=== PATIENT | male | born 1975 | race Caucasian/White ===

== ENCOUNTER 2023-12-22 14:49 | Outpatient (OUT) | payer OTHER, SELFPAY ==
[2023-12-22 15:39] LABS: Basophils Percent Auto 0.5 % (0.2-2.0); Eosinophils Absolute Auto 0.1 10^3/uL (0.0-0.7); Hematocrit 48.1 % (42.0-54.0); Immature Granulocytes Abs Auto 0.01 10^3/uL (0.00-0.03); Immature Granulocytes Pct Auto 0.2 % (0.0-0.5); Lymphocytes Absolute Auto 2.1 10^3/uL (1.2-3.8); Lymphocytes Percent Auto 32.9 % (20.5-60.0); Mean Corpuscular HGB Conc 33.3 g/dL (29.9-35.2); Mean Corpuscular Hemoglobin 28.9 pg (25.9-34.0); Mean Corpuscular Volume 86.8 fL (80.0-94.0); Mean Platelet Volume 10.9 fL (9.5-13.5); Monocytes Absolute Auto 0.6 10^3/uL (0.3-0.8); Monocytes Percent Auto 9.2 % (1.7-12.0); Neutrophils Absolute Auto 3.6 10^3/uL (1.4-6.5); Neutrophils Percent Auto 55.2 % (43.0-75.0); Platelet Count 222 10^3/uL (150-450); Red Blood Count 5.54 10^6/uL (4.70-6.10); Red Cell Distribution Width 11.6 % (11.0-15.0); White Blood Count 6.4 10^3/uL (4.0-11.0)
[2023-12-22 15:40] LABS: Estimated Average Glucose 111 mg/dL; Glycohemoglobin A1C 5.5 % (4.5-6.2)
[2023-12-22 15:50] LABS: Alanine Aminotransferase 80 U/L (16-63); Albumin Globulin Ratio 0.9; Albumin Level 3.7 g/dL (3.4-5.0); Alkaline Phosphatase 90 U/L (46-116); Anion Gap 9.6; Aspartate Amino Transferase 35 U/L (15-37); BUN Creatinine Ratio 9.2; Bilirubin Direct 0.1 mg/dL (0.0-0.2); Bilirubin Total 0.6 mg/dL (0.2-1.0); Calcium 8.8 mg/dL (8.5-10.1); Carbon Dioxide 33.5 mmol/L (21.0-32.0); Chloride 101 mmol/L (98-107); Cholesterol 170 mg/dL (<=200); Estimated GFR (African America >60 (>=60); Estimated GFR (Non-African Ame >60 (>=60); Globulin 4.1 g/dL; Glucose 98 mg/dL (74-106); HDL Cholesterol 42 mg/dL (40-60); Potassium 3.1 mmol/L (3.5-5.1); Sodium 141 mmol/L (136-145); Total Protein 7.8 g/dL (6.4-8.2); Triglycerides 191 mg/dL (<=150); VLDL CHOLESTEROL 38.2 mg/dL
[2023-12-22 16:14] LABS: Prostate Specific Antigen Scrn 0.72 ng/mL (<=4.00)
== END 2023-12-22 14:50 | disposition home or self-care (01) ==
LOC: LAB 14:55
PROVIDERS: PCP Family Medicine; Visit Provider Family Medicine
DX: Z00.00 Encounter for general adult medical examination without abnormal findings (principal); E55.9 Vitamin D deficiency, unspecified
CPT/HCPCS: 36415; 80048; 80061; 80076; 82306; 83036; 85025; G0103

== ENCOUNTER 2024-07-21 07:39 | Outpatient (OUT) | payer OTHER, SELFPAY ==
--- OUTSIDE RECORDS SUMMARY | 2024-07-21 07:48 | XMS_ITS | CCD ---
Author Organization [facility] Care Team Providers Care Clip Loading Machine Feeder Name Role Phone PHYSICIAN, DEFAULT Unavailable Unavailable PHYSICIAN, DEFAULT Unavailable Unavailable Binta Mata Unavailable Nadeen Coburn Unavailable AXEL, DR CHAY Gtz Attending Unavailable AXEL, DR CHAY Gtz Consulting Unavailable AXEL, DR CHAY Gtz Primary Care Unavailable AXEL, DR CHAY Gtz Admitting Unavailable CHAY REYNA Attending Unavailable MD Chay Reyna Primary Care Provider [phone] DO Gucci Rashid Emergency Provider [phone] DO Gucci Rashid Attending Provider Gucci Rashid Attending Unavailable Chay Reyna Primary Care Unavailable Gucci Rashid Admitting Unavailable Gucci Rashid Attending Unavailable Chay Reyna Primary Care Unavailable Gucci Rashid Admitting Unavailable MINDA KELSEY Attending Unavailable CHAY REYNA Primary Care Unavailabl e Medications Current Medications Medication Drug Class(es) Dates Sig (Normalized) Sig (Original) cholecalciferol 0.05 mg oral capsule (2 sources) Vitamin D Start: 4 take 1 capsule by mouth once daily Cholecalciferol (Vitamin D3) Active 50 MCG PO Daily June 03, 2024 12:00am FreeTextSi capsule Orally Once a day; Note: Source Status: Taking; Provider: Esperanza Judd ( ) hydroCHLOROthiazide 25 mg oral tablet (5 sources) Thiazide Diuretic Start: 4 take 1 tablet by mouth once daily in the morning Hydrochlorothiazide Active 25 MG PO Daily June 03, 2024 12:00am FreeTextSi tablet in the morning Orally Once a day; Note: Source Status: Taking; Provider: Esperanza Judd ( ) take 1 tablet by livan th every twenty-four hours hydroCHLOROthiazide 25 MG 1 tablet in e morning Orally Once a day Active hydroCHLOROthiaz khris Active ibuprofen 200 mg oral tablet (1 source) Nonsteroidal Anti-inflammatory Drug take 2 tablets by mouth three times daily at mealtime as needed Ibuprofen 200 MG 2 tablet with food or milk as needed Orally Three times a day Active 24 hr metoprolol succinate 50 mg extended release oral tablet (2 sources) beta-Adrenergic Spencer Start: take 50 mg by mouth once daily Metoprolol Succinate Active 50 MG PO Daily June 03, 2024 12:00am Multi For Him - (1 source) Multi For Him - as directed Orally Active Multivitamin (Daily Multi-Vitamin) tablet (2 sources) Start: take 1 tablet by mouth once daily Multivitamin (Daily Multi-Vitamin) tablet Active 1 TAB PO Daily June 03, 2024 12:00am oseltamivir 75 mg oral capsule (1 source) Neuraminidase Inhibitor Start: take 1 capsule by mouth every twelve hours Tamiflu 75 MG 1 capsule Orally Twice a day for 5 day(s) Dec, Active Vitamin D 50 MCG (1999 UT) (1 source) take 1 capsule by mouth once daily Vitamin D 50 MCG (2000 UT) 1 capsule Orally Once a day Active Completed/Discontinued Medications Medication Drug Class(es) Dates Sig (Normalized) Sig (Original) naproxen sodium 550 mg oral tablet (2 sources) Nonsteroidal Anti-inflammatory Drug Start: 07-09-2021 take 1 tablet by mouth every twelve hours at mealtime as needed Naproxen Sodium 550 MG 1 tablet with food or milk as needed Orally every 12 hrs for 10 day(s) Jun, Not-Taking Problems Active Problems Problem Classification Problem Date Documented Date Episodic/Chronic Cardiac dysrhythmias (2 sources) Ventricular premature depolarization; Translations: [Ventricular premature depolarization] Onset: 06-21-2024 Chronic Cardiac dysrhythmias (5 sources) Palpitations; Translations: [Palpitations] Onset: 06-03-2024 06-03-2024 Episodic Fever of unknown origin (1 source) Fever, unspecified Episodic Other circulatory disease (2 sources) Elevated blood-pressure reading, without diagnosis of hypertension; Translations: [Elevated blood-pressure reading, without diagnosis of hypertension] Onset: 06-21-2024 Episodic Other ear and sense organ disorders (1 source) Impacted cerumen, left ear Episodic Other nutritional; endocrine; and metabolic disorders (2 sources) Body mass index (BMI) 28.0-28.9, adult; Translations: [Body mass index (BMI) 28.0-28.9, adult] Onset: 06-21-2024 Episodic Other screening for suspected conditions (not mental disorders or infectious disease) (3 sources) Encounter for screening for malignant neoplasm of prostate; Translations: [Abnormal electrocardiogram [ECG] [EKG]] Onset: 12-09-2022 Episodic Other upper respiratory infections (5 sources) Streptococcal sore throat; Translations: [Strep pharyngitis] Episodic Otitis media and related conditions (3 sources) Otitis media; Translations: [Unspecified otitis media] Episodic Residual codes; unclassified (2 sources) Other specified health status; Translations: [Other specified health status] Onset: 06-21-2024 Episodic Past or Other Problems Problem Classification Problem Date Documented Date Episodic/Chronic Immunizations and screening for infectious disease (1 source) Contact with and (suspected) exposure to other viral communicable diseases Onset: 12-12-2021 Resolved: 12-12-2021 Episodic Influenza (1 source) Influenza due to other identified influenza virus with other respiratory manifestations Onset: 12-12-2021 Resolved: 12-12-2021 Episodic Other connective tissue disease (1 source) Achilles tendinitis, left leg; Translations: [Achilles tendinitis of left lower extremity M76.62] Onset: 07-09-2021 Resolved: 07-09-2021 Episodic Results Test Name Value Interpretation Reference Range Facility Activated partial thrombopla stin time (aPTT) in platelet poor plasma by coagulation aOrdered By: Gucci Rashid on 06-03-2024 aPTT Coag (PPP) [Time] 30.6 s 25.1-36.5 [facility] Comment on above: A hematocrit value g reater than 55% may lead to inaccurate results in coagulation testing. Patients having hematocrit values >55% require a special collection tube for coagulation studies. Please contact the laboratory at [phone] for redraw instructions. Alanine aminotransferase [En zymatic activity/volume] in Serum or PlasmaOrdered By: Gucci Rashid on 06-03-2024 ALT [Catalytic activity/Vol] 54 U/L High 7-52 [facility] Comment on above: Performed By: #### M G, PT, HS TROP, PTT, CMP, TSH3, CK, CBC, T4F #### [facility] [address] Albumin [Mass/volume] in Ser um or Plasma by Bromocresol green (BCG) dye binding methoOrdered By: Gucci Rashid on 06-03-2024 Albumin BCG dye [Mass/Vol] 4.4 g/dL 3.5-5.7 [facility] Alkaline phosphatase [Enzyma tic activity/volume] in Serum or PlasmaOrdered By: Gucci Rashid on 06-03-2024 ALP [Catalytic activity/Vol] 74 U/L Normal 34-104 [facility] Comment on above: Performed By: #### M G, PT, HS TROP, PTT, CMP, TSH3, CK, CBC, T4F #### [facility] [address] Aspartate aminotransferase [ Enzymatic activity/volume] in Serum or PlasmaOrdered By: Gucci Rashid on 06-03-2024 AST [Catalytic activity/Vol] 32 U/L Normal 13-39 [facility] Comment on above: Performed By: #### M G, PT, HS TROP, PTT, CMP, TSH3, CK, CBC, T4F #### [facility] [address] Automated basophil %Ordered By: Gucci Rashid on 06-03-2024 Basophils/100 WBC (Bld) 0.5 % Normal . [facility] Comment on above: Performed By: #### M G, PT, HS TROP, PTT, CMP, TSH3, CK, CBC, T4F #### [facility] [address] Automated basophil countOrde red By: Gucci Rashid on 06-03-2024 Basophils (Bld) [#/Vol] 0.0 10*3/uL Normal 0.0-0.2 [facility] Comment on above: Result Comment: PERF ORMED BY: [place] [address] PATHOLOGIST STEAM CLEANER NEELA BRAGG M.D. Performed By: #### M G, PT, HS TROP, PTT, CMP, TSH3, CK, CBC, T4F #### [address] Automated blood monocyte cou ntOrdered By: Gucci Rashid on 06-03-2024 Monocytes (Bld) [#/Vol] 0.7 10*3/uL Normal 0.0-0.8 [facility] Comment on above: Performed By: #### M G, PT, HS TROP, PTT, CMP, TSH3, CK, CBC, T4F #### [address] Automated eosinophil %Ordere d By: Gucci Rashid on 06-03-2024 Eosinophils/100 WBC (Bld) 0.8 % Normal . [facility] Comment on above: Performed By: #### M G, PT, HS TROP, PTT, CMP, TSH3, CK, CBC, T4F #### [address] Automated eosinophil countOr dered By: Gucci Rashid on 06-03-2024 Eosinophils (Bld) [#/Vol] 0.1 10*3/uL Normal 0.0-0.45 [facility] Comment on above: Performed By: #### M G, PT, HS TROP, PTT, CMP, TSH3, CK, CBC, T4F #### [address] Automated monocyte %Ordered By: Gucci Rashid on 06-03-2024 Monocytes/100 WBC (Bld) 10.0 % Normal . [facility] Comment on above: Performed By: #### M G, PT, HS TROP, PTT, CMP, TSH3, CK, CBC, T4F #### [address] Automated neutrophil %Ordere d By: Gucci Rashid on 06-03-2024 Neutrophils/100 WBC (Bld) 67.1 % Normal . [facility] Comment on above: Performed By: #### M G, PT, HS TROP, PTT, CMP, TSH3, CK, CBC, T4F #### [facility] [address] BNP ser/plasOrdered By: Baron Rashid on 06-03-2024 Natriuretic peptide B (Bld) [Mass/Vol] 11.0 pg/mL Normal 5-100 [facility] Comment on above: Result Comment: PERF ORMED BY: [place] [address] PATHOLOGIST STEAM CLEANER NEELA BRAGG M.D. Performed By: #### B MD PHYSICIAN DERMATOLOGIST #### [address] Bilirubin Test strip Ql (U)O rdered By: Gucci Rashid on 06-03-2024 Bilirubin Ql (U) Negative Negative [facility] Bilirubin.total [Mass/volume ] in Serum or PlasmaOrdered By: Gucci Rashid on 06-03-2024 Bilirubin [Mass/Vol] 0.6 mg/dL Normal 0.3-1.0 [facility] Comment on above: Performed By: #### M G, PT, HS TROP, PTT, CMP, TSH3, CK, CBC, T4F #### [facility] [address] [place] [address] Calcium [Mass/volume] in Ser um or PlasmaOrdered By: Gucci Rashid on 06-03-2024 Calcium [Mass/Vol] 9.6 mg/dL Normal 8.6-10.3 [facility] Comment on above: Performed By: #### M G, PT, HS TROP, PTT, CMP, TSH3, CK, CBC, T4F #### [facility] [address] Carbon dioxide, total [Moles /volume] in Serum or PlasmaOrdered By: Gucci Rashid on 06-03-2024 CO2 [Moles/Vol] 30.4 mmol/L Normal 21.0-31.0 [facility] Comment on above: Performed By: #### M G, PT, HS TROP, PTT, CMP, TSH3, CK, CBC, T4F #### [address] Chloride [Moles/volume] in S odessa or PlasmaOrdered By: Gucci Rashid on 06-03-2024 Chloride [Moles/Vol] 101 mmol/L Normal 98-107 [facility] Comment on above: Performed By: #### M G, PT, HS TROP, PTT, CMP, TSH3, CK, CBC, T4F #### [address] Color of Urine by AutoOrdere d By: Gucci Rashid on 06-03-2024 Color (U) Light-yellow Normal Yellow [facility] Comment on above: Order Comment: Name Collection Type:: Voided Performed By: #### U A #### [address] Complete Blood Count Auto Di ffon 06-03-2024 Mean Corpuscular HGB Conc 34.6 g/dL Normal 32.5-35.6 [facility] Comment on above: Performed By: #### M G, PT, HS TROP, PTT, CMP, TSH3, CK, CBC, T4F #### [address] Monocytes/100 WBC (Bld) 16.10 % Normal 0.00-20.00 [facility] Comment on above: Performed By: #### M G, PT, HS TROP, PTT, CMP, TSH3, CK, CBC, T4F #### [address] NRBC% 0.1 /100{WBC} Normal 0-0.5 [facility] Comment on above: Performed By: #### M G, PT, HS TROP, PTT, CMP, TSH3, CK, CBC, T4F #### [address] Comprehensive Metabolic Pane giovani 06-03-2024 Albumin [Mass/Vol] 4.4 g/dL Normal 3.5-5.7 [facility] Comment on above: Performed By: #### M G, PT, HS TROP, PTT, CMP, TSH3, CK, CBC, T4F #### [facility] [address] Creatinine Clr Calc Pharmacy 88.42 Normal [facility] Comment on above: Performed By: #### M G, PT, HS TROP, PTT, CMP, TSH3, CK, CBC, T4F #### [facility] [address] [place] [address] [place] GFR/1.73 sq M.predicted MDRD (S/P/Bld) [Vol rate/Area] mL/min/{1.73_m2} Normal [facility] Comment on above: Performed By: #### M G, PT, HS TROP, PTT, CMP, TSH3, CK, CBC, T4F #### [address] Creatine kinase [Enzymatic a ctivity/volume] in Serum or PlasmaOrdered By: Gucci Rashid on 06-03-2024 CK [Catalytic activity/Vol] 116 U/L Normal 30-223 [facility] Comment on above: Performed By: #### M G, PT, HS TROP, PTT, CMP, TSH3, CK, CBC, T4F #### [facility] [address] [place] [address] [place] Creatinine [Mass/volume] in Serum or PlasmaOrdered By: Gucci Rashid on 06-03-2024 Creatinine [Mass/Vol] 1.10 mg/dL Normal 0.70-1.30 [facility] Comment on above: Performed By: #### M G, PT, HS TROP, PTT, CMP, TSH3, CK, CBC, T4F #### [place] [id number] [facility] ECG 12 lead ECGon 06-03-2024 ECG 12 lead ECG [facility] [place] [address] [place] [address] Electrocardiograph Report Signed Patient: Ravinder Hardy MR#: [id number] : 1975 Acct:[id number] Age/Sex: 48 / M ADM Date: 06/03/24 Loc: ER Room: Type: [facility] ER Attending Dr: Ordering Provider: Gucci Rashid DO Date of Service: 06/03/24 ECG/ECG 12 lead ECG: Arrhythmia/Palpitations Copies to: Test Reason : Blood Pressure : */* mmHG Vent. Rate : 115 BPM Atrial Rate : 115 BPM P-R Int : 120 ms QRS Dur : 126 ms QT Int : 456 ms P-R-T Axes : * 56 70 degrees QTcB Int : 630 ms Sinus tachycardia with frequent premature ventricular complexes Nonspecific intraventricular block Cannot rule out Anterior infarct , age undetermined Abnormal ECG No previous ECGs available Confirmed by Gucci Rashid DO ([id number]) on 06/03/2024 6:41:42 PM Referred By: Electronically Signed By: Gucci Rashid DO Transcribed By: MUS Signed By Gucci Rashid DO 4 1841 Normal [facility] Erythrocyte distribution wid th [Ratio] by Automated countOrdered By: Gucci Rashid on 06-03-2024 Erythrocyte distribution width (RBC) [Ratio] 12.5 % Normal 12.0-14.8 [facility] Comment on above: Performed By: #### M G, PT, HS TROP, PTT, CMP, TSH3, CK, CBC, T4F #### [facility] [address] [place] [address] [place] Erythrocytes [#/volume] in B lood by Automated countOrdered By: Gucci Rashid on 06-03-2024 RBC (Bld) [#/Vol] 5.44 10*6/uL Normal 3.90-5.60 [facility] Comment on above: Performed By: #### M G, PT, HS TROP, PTT, CMP, TSH3, CK, CBC, T4F #### [facility] [address] [place] [id number] [place] Glucose [Mass/volume] in Ser um or PlasmaOrdered By: Gucci Rashid on 06-03-2024 Glucose [Mass/Vol] 101 mg/dL High 70-100 [facility] Comment on above: ADA recommended refe rence rangeRandom Glucose Reference Range is dependent on time and content of last meal. Glucose of more than 200 mg/dL in a nonstressed, ambulatory subject supports the diagnosis of Diabetes Mellitus. Result Comment: [place] om Glucose Reference Range is dependent on time and content of last meal. Glucose of more than 200 mg/dL in a nonstressed, ambulatory subject supports the diagnosis of Diabetes Mellitus. ADA recommended reference range Performed By: #### M G, PT, HS TROP, PTT, CMP, TSH3, CK, CBC, T4F #### [facility] [address] Glucose [Mass/volume] in Uri ne by Test stripOrdered By: Gucci Rashid on 06-03-2024 Glucose Test strip (U) [Mass/Vol] Normal mg/dL Normal [facility] Hematocrit [Volume Fraction] of Blood by Automated countOrdered By: Gucci Rashid on 06-03-2024 Hematocrit (Bld) [Volume fraction] 47.0 % Normal 38.8-50.0 [facility] Comment on above: Performed By: #### M G, PT, HS TROP, PTT, CMP, TSH3, CK, CBC, T4F #### [facility] [address] Hemoglobin Test strip Ql (U) Ordered By: Gucci Rashid on 06-03-2024 Hemoglobin Ql (U) Negative Negative [facility] Hemoglobin [Mass/volume] in BloodOrdered By: Gucci Rashid on 06-03-2024 Hemoglobin (Bld) [Mass/Vol] 16.3 g/dL Normal 13.0-17.0 [facility] Comment on above: Performed By: #### M G, PT, HS TROP, PTT, CMP, TSH3, CK, CBC, T4F #### [facility] [address] INR in Platelet poor plasma by Coagulation assayOrdered By: Gucci Rashid on 06-03-2024 INR Coag (PPP) [Relative time] 1.0 {INR} Normal [facility] Comment on above: INR Therapeutic Rang e A) Pre- and Peroperative OAT started two weeks before surgery. NOT HIP SURGERY: 1.5 - 2.5 HIP SURGERY: 2 - 3B) Primary and secondary prevention of venous THROMBOSIS: 2 - 3C) Active venous thrombosis, pulmonary embolismand prevention of recurrent venous thrombosis: 2 - 3D) Prevention of arterial thromboembolismincluding patients with mechanical heart valves: 3 - 4.5 Result Comment: INR Therapeutic Range A) Pre- and Peroperative OAT started two weeks before surgery. NOT HIP SURGERY: 1.5 - 2.5 HIP SURGERY: 2 - 3 B) Primary and secondary prevention of venous THROMBOSIS: 2 - 3 C) Active venous thrombosis, pulmonary embolism and prevention of recurrent venous thrombosis: 2 - 3 D) Prevention of arterial thromboembolism including patients with mechanical heart valves: 3 - 4.5 Performed By: #### M G, PT, HS TROP, PTT, CMP, TSH3, CK, CBC, T4F #### [facility] [address] [place] [address] Ketones [Presence] in Urine by Test stripOrdered By: Gucci Rashid on 06-03-2024 Ketones Ql (U) Negative Normal Negative [facility] Comment on above: Order Comment: Name Collection Type:: Voided Performed By: #### U A #### [facility] [address] [place] [address] Leukocyte esterase [Presence ] in Urine by Test stripOrdered By: Gucci Rashid on 06-03-2024 Leukocyte esterase Test strip Ql (U) Negative Normal Negative [facility] Comment on above: Order Comment: Name Collection Type:: Voided Performed By: #### U A #### [facility] [address] [place] [address] Leukocytes [#/volume] correc christiano for nucleated erythrocytes in Blood by Automated counOrdered By: Gucci Rashid on 06-03-2024 WBC corrected for nucl RBC Auto (Bld) [#/Vol] 7.3 10*3/uL 4.1-10.5 [facility] Leukocytes [#/volume] in Blo od by Automated countOrdered By: Gucci Rashid on 06-03-2024 WBC (Bld) [#/Vol] 7.3 10*3/uL Normal 4.1-10.5 [facility] Comment on above: Performed By: #### M G, PT, HS TROP, PTT, CMP, TSH3, CK, CBC, T4F #### [facility] [address] Lymphocytes [#/volume] in Bl ood by Automated countOrdered By: Gucci Rashid on 06-03-2024 Lymphocytes (Bld) [#/Vol] 1.6 10*3/uL Normal 1.00-4.8 [facility] Comment on above: Performed By: #### M G, PT, HS TROP, PTT, CMP, TSH3, CK, CBC, T4F #### [facility] [address] Lymphocytes/100 leukocytes i n Blood by Automated countOrdered By: Gucci Rashid on 06-03-2024 Lymphocytes/100 WBC (Bld) 21.6 % Normal . [facility] Comment on above: Performed By: #### M G, PT, HS TROP, PTT, CMP, TSH3, CK, CBC, T4F #### [address] MCH [Entitic mass] by Automa christiano countOrdered By: Gucci Rashid on 06-03-2024 MCH (RBC) [Entitic mass] 29.9 pg Normal 27.5-35.2 [facility] Comment on above: Performed By: #### M G, PT, HS TROP, PTT, CMP, TSH3, CK, CBC, T4F #### [address] MCHC Auto (RBC) [Mass/Vol]Or dered By: Gucci Rashid on 06-03-2024 MCHC (RBC) [Mass/Vol] 34.6 g/dL 32.5-35.6 [facility] MCV [Entitic volume] by Auto mated countOrdered By: Gucci Rashid on 06-03-2024 MCV (RBC) [Entitic vol] 86.4 fL Normal 83.5-101 [facility] Comment on above: Performed By: #### M G, PT, HS TROP, PTT, CMP, TSH3, CK, CBC, T4F #### [facility] [address] Magnesium [Mass/volume] in S odessa or PlasmaOrdered By: Gucci Rashid on 06-03-2024 Magnesium [Mass/Vol] 1.9 mg/dL Normal 1.9-2.7 [facility] Comment on above: Performed By: #### U A #### [facility] [address] [place] [address] Monocyte distribution width [Entitic volume] in Blood by AutomatedOrdered By: Gucci Rashid on 06-03-2024 Monocyte distribution width Auto (Bld) [Entitic vol] 16.10 % 0.00-20.00 [facility] Neutrophils [#/volume] in Bl ood by Automated countOrdered By: Gucci Rashid on 06-03-2024 Neutrophils (Bld) [#/Vol] 4.9 10*3/uL Normal 1.8-7.7 [facility] Comment on above: Performed By: #### M G, PT, HS TROP, PTT, CMP, TSH3, CK, CBC, T4F #### [facility] [address] [place] [address] Nitrite Test strip Ql (U)Ord ered By: Gucci Rashid on 06-03-2024 Nitrite Ql (U) Negative Negative [facility] No Panel InformationOrdered By: Gucci Rashid on 06-03-2024 Estimated GFR (CKD-EPI) > 60.0 mL/Min [facility] Creatinine Clearance (Chem 88.42 [facility] Nucleated erythrocytes [Pres ence] in Blood by Automated countOrdered By: Gucci Rashid on 06-03-2024 Nucleated RBC Auto Ql (Bld) 0.1 /100{WBC} 0-0.5 [facility] Partial Thromboplastin Timeo n 06-03-2024 aPTT Coag (Bld) [Time] 30.6 s Normal 25.1-36.5 [facility] Comment on above: Result Comment: A he matocrit value greater than 55% may lead to inaccurate results in coagulation testing. Patients having hematocrit values >55% require a special collection tube for coagulation studies. Please contact the laboratory at [phone] for redraw instructions. PERFORMED BY: [place] [address] PATHOLOGIST STEAM CLEANER NEELA BRAGG M.D. Performed By: #### M G, PT, HS TROP, PTT, CMP, TSH3, CK, CBC, T4F #### [address] Platelet mean volume [Entiti c volume] in Blood by Automated countOrdered By: Gucci Rashid on 06-03-2024 Platelet mean volume (Bld) [Entitic vol] 8.8 fL Normal 6.6-10.1 [facility] Comment on above: Performed By: #### M G, PT, HS TROP, PTT, CMP, TSH3, CK, CBC, T4F #### [address] Platelets [#/volume] in Bloo d by Automated countOrdered By: Gucci Rashid on 06-03-2024 Platelets (Bld) [#/Vol] 243 10*3/uL Normal 150-450 [facility] Comment on above: Performed By: #### M G, PT, HS TROP, PTT, CMP, TSH3, CK, CBC, T4F #### [address] Potassium [Moles/volume] in Serum or PlasmaOrdered By: Gucci Rashid on 06-03-2024 Potassium [Moles/Vol] 3.3 mmol/L Low 3.5-5.1 [facility] Comment on above: Performed By: #### M G, PT, HS TROP, PTT, CMP, TSH3, CK, CBC, T4F #### [address] Protein Test strip (U) [Mass /Vol]Ordered By: Gucci Rashid on 06-03-2024 Protein (U) [Mass/Vol] Negative Negative [facility] Protein [Mass/volume] in Ser um or PlasmaOrdered By: Gucci Rashid on 06-03-2024 Protein [Mass/Vol] 7.8 g/dL Normal 6.4-8.9 [facility] Comment on above: Performed By: #### M G, PT, HS TROP, PTT, CMP, TSH3, CK, CBC, T4F #### [facility] [address] Prothrombin time (PT)Ordered By: Gucci Rashid on 06-03-2024 PT Coag (PPP) [Time] 11.9 s Normal 9.0-12.9 [facility] Comment on above: A hematocrit value g reater than 55% may lead to inaccurate results in coagulation testing. Patients having hematocrit values >55% require a special collection tube for coagulation studies. Please contact the laboratory at [phone] for redraw instructions. Result Comment: A he matocrit value greater than 55% may lead to inaccurate results in coagulation testing. Patients having hematocrit values >55% require a special collection tube for coagulation studies. Please contact the laboratory at [phone] for redraw instructions. Performed By: #### M G, PT, HS TROP, PTT, CMP, TSH3, CK, CBC, T4F #### [facility] [address] Serum globulin measurement b y calculation (mass/volume)Ordered By: Gucci Rashid on 06-03-2024 Globulin (S) [Mass/Vol] 3.4 g/dL [facility] Comment on above: Performed By: #### M G, PT, HS TROP, PTT, CMP, TSH3, CK, CBC, T4F #### [facility] [address] Serum or plasma albumin/glob ulin mass ratioOrdered By: Gucci Rashid on 06-03-2024 Albumin/Globulin [Mass ratio] 1.3 {ratio} [facility] Comment on above: Performed By: #### M G, PT, HS TROP, PTT, CMP, TSH3, CK, CBC, T4F #### [address] Serum or plasma anion gap de terminationOrdered By: Gucci Rashid on 06-03-2024 Anion gap [Moles/Vol] 10.9 mmol/L Normal 6.0-15.0 [facility] Comment on above: Performed By: #### M G, PT, HS TROP, PTT, CMP, TSH3, CK, CBC, T4F #### [address] Sodium [Moles/volume] in Ser um or PlasmaOrdered By: Gucci Rashid on 06-03-2024 Sodium [Moles/Vol] 139 mmol/L Normal 136-145 [facility] Comment on above: Performed By: #### M G, PT, HS TROP, PTT, CMP, TSH3, CK, CBC, T4F #### [address] Specific gravity Test strip (U) [Rel density]Ordered By: Gucci Rashid on 06-03-2024 Specific gravity (U) [Rel density] 1.020 1.001-1.03 0 [facility] Thyrotropin [Units/volume] i n Serum or PlasmaOrdered By: Gucci Rashid on 06-03-2024 TSH Qn 0.93 m[IU]/L Normal 0.45-5.33 [facility] Comment on above: Result Comment: PERF ORMED BY: [place] [address] PATHOLOGIST STEAM CLEANER NEELA BRAGG M.D. Performed By: #### U A #### [address] Thyroxine (T4) free [Mass/vo lume] in Serum or PlasmaOrdered By: Gucci Rashid on 06-03-2024 Free T4 [Mass/Vol] 0.77 ng/dL Normal 0.61-1.12 [facility] Comment on above: Performed By: #### U A #### [address] Troponin I High Sensitivityo n 06-03-2024 Troponin I High Sensitivity 4.9 pg/mL Normal 0.0-20.0 [facility] Comment on above: Result Comment: PERF ORMED BY: [place] [address] PATHOLOGIST [employer]AM CLEANER NEELA BRAGG M.D. Performed By: #### M G, PT, HS TROP, PTT, CMP, TSH3, CK, CBC, T4F #### [facility] [address] Troponin I.cardiac [Mass/vol ume] in Serum or Plasma by Detection limit <= 0.01 ng/Ordered By: Gucci Rashid on 06-03-2024 Troponin I.cardiac DL <= 0.01 ng/mL [Mass/Vol] 4.9 pg/mL 0.0-20.0 [facility] Urea nitrogen [Mass/volume] in Serum or PlasmaOrdered By: Gucci Rashid on 06-03-2024 Urea nitrogen [Mass/Vol] 14 mg/dL Normal 7-25 [facility] Comment on above: Performed By: #### M G, PT, HS TROP, PTT, CMP, TSH3, CK, CBC, T4F #### [facility] [address] [place] [address] [place] Urinalysison 06-03-2024 Bilirubin,Urine Negative Normal Negative [facility] Comment on above: Order Comment: Name Collection Type:: Voided Performed By: #### U A #### [place] [address] [place] Glucose Ql (U) Normal Normal Normal [facility] Comment on above: Order Comment: Name Collection Type:: Voided Performed By: #### U A #### [facility] [address] [place] [address] [place] Nitrite,Urine Negative Normal Negative [facility] Comment on above: Order Comment: Name Collection Type:: Voided Performed By: #### U A #### [place] [id number] [place] Occult Blood,Urine Negative Normal Negative [facility] Comment on above: Order Comment: Name Collection Type:: Voided Result Comment: PERF ORMED BY: [address] [address] PATHOLOGIST STEAM CLEANER NEELA BRAGG M.D. Performed By: #### U A #### [address] Protein,Urine Negative Normal Negative [facility] Comment on above: Order Comment: Name Collection Type:: Voided Performed By: #### U A #### [address] Specificy [place],Urine 1.020 Normal 1.001-1.03 0 [facility] Comment on above: Order Comment: Name Collection Type:: Voided Performed By: #### U A #### [address] Urobilinogen,Urine Normal Normal Normal [facility] Comment on above: Order Comment: Name Collection Type:: Voided Performed By: #### U A #### [address] Urine appearanceOrdered By: Gucci Rashid on 06-03-2024 Appearance (U) Clear Normal Clear [facility] Comment on above: Order Comment: Name Collection Type:: Voided Performed By: #### U A #### [address] Urobilinogen Test strip (U) [Mass/Vol]Ordered By: Gucci Rashid on 06-03-2024 Urobilinogen (U) [Mass/Vol] Normal mg/dL Normal [facility] XR chest 2V*on 06-03-2024 XR chest 2V* [facility] [place] [address] [place] [address] XRay Report Signed Patient: Ravinder Hardy MR#: [id number] : 1975 Acct:[id number] Age/Sex: 48 / M ADM Date: 06/03/24 Loc: ER Room: Type: PRE ER Attending Dr: Copies to: Gucci Rashid DO Ordering Provider: Gucci Rashid DO Date of Service: 06/03/24 XR/XR chest 2V*: Arrhythmia/Palpitations Chest 2 views CLINICAL HISTORY: Heart palpitations for years. COMPARISON: None FINDINGS: Heart normal in size. Lungs are clear. No free air. XR/XR chest 2V* IMPRESSION: NO ACUTE CARDIOPULMONARY ABNORMALITY. Impression dictated by: Anil Nazario Jr., D.ODevorah06/03/2024 3:29 PM Dictation Location: [place] [address] Transcribed By: [facility] 06/03/24 1529 Dictated By: Anil Nazario Jr, DO 06/03/24 1527 Signed By: 06/03/24 1529 Normal [facility] pH of Urine by Test stripOrd ered By: Gucci Rashid on 06-03-2024 pH (U) 6.5 [pH] Normal 5.0-9.0 [facility] Comment on above: Order Comment: Name Collection Type:: Voided Performed By: #### U A #### [address] COVID/FLU/RSV RT-PCRon 07-25 SARS-CoV-2 (COVID-19) RNA GEORGE+probe Ql (Unsp spec) Negative [facility] Other COVID/FLU/RSV RT-PCR Negative [facility] Other Quick Strepon 07-25-2023 S. pyogenes Org specific cx Ql (Throat) Negative [facility] Other Quick Strep [facility] Other CBC AUTO DIFFon 11-26-2022 BASO # 0.0 103/ul Normal 0.0-0.1 [facility] Comment on above: Performed By: #### C BC #### [facility] [address] [place] [address] Dr. Buzz Hedrick Basophils/100 WBC (Bld) 0.5 % Normal 0.2-2.0 [facility] Comment on above: Performed By: #### C BC #### [facility] [address] [place] [address] Dr. Buzz Hedrick EO # 0.1 103/ul Normal 0.0-0.7 [facility] Comment on above: Performed By: #### C BC #### [facility] [address] [place] [address] Dr. Buzz Hedrick Eosinophils/100 WBC (Bld) 1.4 % Normal 0.9-7.0 [facility] Comment on above: Performed By: #### C BC #### [facility] [address] [place] [address] Dr. Buzz Hedrick Erythrocyte distribution width (RBC) [Ratio] 12.0 % Normal 11.0-15.0 [facility] Comment on above: Performed By: #### C BC #### [facility] [address] [place] [address] Dr. Buzz Hedrick Hematocrit (Bld) [Volume fraction] 47.7 % Normal 42.0-54.0 [facility] Comment on above: Performed By: #### C BC #### [facility] [address] [place] [address] Dr. Buzz Hedrick Hemoglobin (Bld) [Mass/Vol] 16.3 g/dL Normal 14.0-18.0 [facility] Comment on above: Performed By: #### C BC #### [facility] [address] [place] [address] Dr. Buzz Hedrick IG # 0.01 10e3/ul Normal 0.00-0.03 [facility] Comment on above: Performed By: #### C BC #### [facility] [address] [place] [address] Dr. Buzz Hedrick IG % 0.1 % Normal 0.0-0.5 [facility] Comment on above: Performed By: #### C BC #### [facility] [address] [place] [address] Dr. Buzz Hedrick LYMPH # 1.9 103/ul Normal 1.2-3.8 [facility] Comment on above: Performed By: #### C BC #### [facility] [address] [place] [address] Dr. Buzz Hedrick Lymphocytes/100 WBC (Bld) 24.7 % Normal 20.5-60.0 [facility] Comment on above: Performed By: #### C BC #### [facility] [address] [place] [address] Dr. Buzz Hedrick MANUAL DIFF REQ NO Normal [facility] Comment on above: Performed By: #### C BC #### [facility] [address] [place] [address] Dr. Buzz Hedrick MCH (RBC) [Entitic mass] 29.0 pg Normal 25.9-34.0 [facility] Comment on above: Performed By: #### C BC #### [facility] [address] [place] [address] Dr. Buzz Hedrick MCHC (RBC) [Mass/Vol] 34.2 g/dL Normal 29.9-35.2 [facility] Comment on above: Performed By: #### C BC #### [facility] [address] [place] [address] Dr. Buzz Hedrick MCV (RBC) [Entitic vol] 84.9 fL Normal 80.0-94.0 [facility] Comment on above: Performed By: #### C BC #### [facility] [address] [place] [address] Dr. Buzz Hedrick MONO # 0.7 103/ul Normal 0.3-0.8 [facility] Comment on above: Performed By: #### C BC #### [facility] [address] [place] [address] Dr. Buzz Hedrick Monocytes/100 WBC (Bld) 8.6 % Normal 1.7-12.0 [facility] Comment on above: Performed By: #### C BC #### [facility] [address] [place] [address] Dr. Buzz Hedrick NEUT # 5.0 103/ul Normal 1.4-6.5 [facility] Comment on above: Performed By: #### C BC #### [facility] [address] [place] [address] Dr. Buzz Hedrick Neutrophils/100 WBC (Bld) 64.7 % Normal 43.0-75.0 [facility] Comment on above: Performed By: #### C BC #### [facility] [address] [place] [address] [address] Buzz Hedrick Platelet mean volume (Bld) [Entitic vol] 9.5 fL Normal 9.5-13.5 [facility] Comment on above: Performed By: #### C BC #### [facility] [address] [place] [address] [address] Buzz Hedrick PLT 242 103/ul Normal 150-450 [facility] Comment on above: Performed By: #### C BC #### [facility] [address] [place] [address] Dr. Buzz Hedrick RBC 5.62 106/ul Normal 4.70-6.10 [facility] Comment on above: Performed By: #### C BC #### [facility] [address] [place] [address] Dr. Buzz Hedrick WBC 7.7 103/ul Normal 4.0-11.0 [facility] Comment on above: Performed By: #### C BC #### [facility] [address] [place] [address] Dr. Buzz Hedrick GLYCOHEMOGLOBIN A1Con 2022 ADA RECOMMENDATION SEE BELOW Normal [facility] Comment on above: Result Comment: ADA RECOMMENDED LIMIT 4.0 - 6.0 ADA THERAPEUTIC TARGET < 7.0 ACTION SUGGESTED > 7.0 Performed By: #### A 1C #### [facility] [address] [place] [address] Dr. Buzz Hedrick Glucose [Mass/Vol] 105 mg/dL Normal [facility] Comment on above: Performed By: #### A 1C #### [facility] [address] [place] [address] Dr. Buzz Hedrick HbA1c (Bld) [Mass fraction] 5.3 % Normal 4.5-6.2 [facility] Comment on above: Performed By: #### A 1C #### [facility] [address] [place] [address] Dr. Buzz Hedrick LIPID PROFILEon 11-26-2022 CHOL-HDL RATIO NORM SEE BELOW Normal [facility] Comment on above: Result Comment: 3.3 - 4.4 LOW RISK 4.4 - 7.1 AVERAGE RISK 7.1 - 11.0 MODERATE RISK >11.0 HIGH RISK Performed By: #### B MP, TSH, LIPID, LIVER #### [facility] [address] [place] [address] [address] Buzz Hedrick Cholesterol [Mass/Vol] 169 mg/dL Normal <=200 [facility] Comment on above: Performed By: #### B MP, TSH, LIPID, LIVER #### [facility] [address] [place] [address] [address] Buzz Hedrick Cholesterol in HDL [Mass/Vol] 53 mg/dL Normal 40-60 [facility] Comment on above: Performed By: #### B MP, TSH, LIPID, LIVER #### [facility] [address] [place] [address] [address] Buzz Hedrick Cholesterol in LDL [Mass/Vol] 101.8 mg/dL Normal [facility] Comment on above: Performed By: #### B MP, TSH, LIPID, LIVER #### [facility] [address] [place] [address] [address] Buzz Hedrick Cholesterol.total/Chol esterol in HDL [Mass ratio] 3.2 {ratio} Normal [facility] Comment on above: Performed By: #### B MP, TSH, LIPID, LIVER #### [facility] [address] [place] [address] [address] Buzz Hedrick HDL NORMAL > or = 60 mg/dl - LO W CARDIOVASCULAR RISK <40 mg/dl - HIGH CARDIOVASCULAR RISK Normal [facility] Comment on above: Performed By: #### B MP, TSH, LIPID, LIVER #### [facility] [address] [place] [address] [address] Buzz Hedrick LDL CALC NORMAL SEE BELOW Normal [facility] Comment on above: Result Comment: <100 mg/dl OPTIMAL 100 - 129 mg/dl NEAR OR ABOVE OPTIMAL 130 - 159 mg/dl BORDERLINE HIGH 160 - 189 mg/dl HIGH >190 mg/dl VERY HIGH Performed By: #### B MP, TSH, LIPID, LIVER #### [facility] [address] [place] [address] [address] Buzz Hedrick Triglyceride [Mass/Vol] 71 mg/dL Normal <=150 [facility] Comment on above: Performed By: #### B MP, TSH, LIPID, LIVER #### [facility] [address] [place] [address] [address] Buzz Hedrick VLDL CALC 14.2 mg/dL Normal [facility] Comment on above: Performed By: #### B MP, TSH, LIPID, LIVER #### [facility] [address] [place] [address] [address] Buzz Hedrick LIVER PROFILEon 11-26-2022 Albumin [Mass/Vol] 4.0 g/dL Normal 3.4-5.0 [facility] Comment on above: Performed By: #### B MP, TSH, LIPID, LIVER #### [facility] [address] [place] [address] Dr. Buzz Hedrick Albumin/Globulin [Mass ratio] 1.1 {ratio} Normal [facility] Comment on above: Performed By: #### B MP, TSH, LIPID, LIVER #### [facility] [address] [place] [address] [address] Buzz Hedrick ALP [Catalytic activity/Vol] 91 U/L Normal 46-116 [facility] Comment on above: Performed By: #### B MP, TSH, LIPID, LIVER #### [facility] [address] [place] [address] Dr. Buzz Hedrick ALT [Catalytic activity/Vol] 67 U/L Critically high 16-63 [facility] Comment on above: Performed By: #### B MP, TSH, LIPID, LIVER #### [facility] [address] [place] [address] [address] Buzz Hedrick AST [Catalytic activity/Vol] 31 U/L Normal 15-37 [facility] Comment on above: Performed By: #### B MP, TSH, LIPID, LIVER #### [facility] [address] [place] [address] Dr. Buzz Hedrick BILI, CONJUGATED 0.1 mg/dL Normal 0.0-0.2 [facility] Comment on above: Performed By: #### B MP, TSH, LIPID, LIVER #### [facility] [address] [place] [address] [address] Buzz Hedrick Bilirubin [Mass/Vol] 0.5 mg/dL Normal 0.2-1.0 [facility] Comment on above: Performed By: #### B MP, TSH, LIPID, LIVER #### [facility] [address] [place] [address] Dr. Buzz Hedrick Globulin (S) [Mass/Vol] 3.8 g/dL Normal [facility] Comment on above: Performed By: #### B MP, TSH, LIPID, LIVER #### [facility] [address] [place] [address] Dr. Buzz Hedrick Protein [Mass/Vol] 7.8 g/dL Normal 6.4-8.2 [facility] Comment on above: Performed By: #### B MP, TSH, LIPID, LIVER #### [facility] [address] [place] [address] Dr. Buzz Hedrick PROF CHEM 8 (BAS METB)on Anion gap [Moles/Vol] 11.1 mmol/L Normal [facility] Comment on above: Performed By: #### B MP, TSH, LIPID, LIVER #### [facility] [address] [place] [address] Dr. Buzz Hedrick Calcium [Mass/Vol] 9.3 mg/dL Normal 8.5-10.1 [facility] Comment on above: Performed By: #### B MP, TSH, LIPID, LIVER #### [facility] [address] [place] [address] Dr. Buzz Hedrick Chloride [Moles/Vol] 102 mmol/L Normal 98-107 [facility] Comment on above: Performed By: #### B MP, TSH, LIPID, LIVER #### [facility] [address] [place] [address] Dr. Buzz Hedrick CO2 [Moles/Vol] 30.5 mmol/L Normal 21.0-32.0 [facility] Comment on above: Performed By: #### B MP, TSH, LIPID, LIVER #### [facility] [address] [place] [address] [address] Buzz Hedrick Creatinine [Mass/Vol] 0.93 mg/dL Normal 0.70-1.30 [facility] Comment on above: Performed By: #### B MP, TSH, LIPID, LIVER #### [facility] [address] [place] [address] [address] Buzz Hedrick EGFR-AF BAHRAINI >60 Normal >=60 [facility] Comment on above: Performed By: #### B MP, TSH, LIPID, LIVER #### [facility] [address] [place] [address] [address] Buzz Hedrick EGFR-NON AF BAHRAINI >60 Normal >=60 [facility] Comment on above: Performed By: #### B MP, TSH, LIPID, LIVER #### [facility] [address] [place] [address] Dr. Buzz Hedrick Glucose [Mass/Vol] 86 mg/dL Normal 74-106 [facility] Comment on above: Performed By: #### B MP, TSH, LIPID, LIVER #### [facility] [address] [place] [address] [address] Buzz Hedrick Potassium [Moles/Vol] 3.6 mmol/L Normal 3.5-5.1 [facility] Comment on above: Performed By: #### B MP, TSH, LIPID, LIVER #### [facility] [address] [place] [address] [address] Buzz Hedrick Sodium [Moles/Vol] 140 mmol/L Normal 136-145 [facility] Comment on above: Performed By: #### B MP, TSH, LIPID, LIVER #### [facility] [address] [place] [address] [address] Buzz Hedrick Urea nitrogen [Mass/Vol] 11.0 mg/dL Normal 7.0-18.0 [facility] Comment on above: Performed By: #### B MP, TSH, LIPID, LIVER #### [facility] [address] [place] [address] [address] Buzz Hedrick Urea nitrogen/Creatinine [Mass ratio] 11.8 mg/mg Normal [facility] Comment on above: Performed By: #### B MP, TSH, LIPID, LIVER #### [facility] [address] [place] [id number] Buzz Hedrick TSHon 11-26-2022 TSH 0.747 uIU/mL Normal 0.358-3.74 0 [facility] Comment on above: Performed By: #### B MP, TSH, LIPID, LIVER #### [facility] [address] [place] [address] [address] Buzz Hedrick COVID Quick Testingon 2021 Result Negative [facility] [employer] Other Quick Fluon 12-12-2021 FLUAV Ab CF (S) [Titer] Positive [facility] Other FLUBV Ab CF (S) [Titer] Negative [facility] Other Vital Signs Date Time Vital Sign Value Performing Clinician Facility 06-03-2024 18:00-0400 Diastolic blood pressure 88 mm[Hg] MD Chay Reyna Work Phone: [facility] 06-03-2024 18:00-0400 Heart rate 86 /min MD Chay Reyna Work Phone: [facility] 06-03-2024 18:00-0400 Respiratory rate 20 /min MD Chay Reyna Work Phone: [facility] 06-03-2024 18:00-0400 SaO2% (BldA) [Mass fraction] 100 % MD Chay Reyna Work Phone: [facility] 06-03-2024 18:00-0400 Systolic blood pressure 153 mm[Hg] MD Chay Reyna Work Phone: [facility] 06-03-2024 14:48-0400 Body height 180.34 cm MD Chay Reyna Work Phone: [facility] 06-03-2024 14:48-0400 Body temperature 98.5 [degF] MD Chay Reyna Work Phone: [facility] 06-03-2024 14:48-0400 Body weight 89.81 kg MD Chay Reyna Work Phone: [facility] 07-25-2023 12:55-0400 Body height 180.34 cm Binta Jordanmond Other [facility] Other 07-25-2023 12:55-0400 Body mass index (BMI) [Ratio] 28.87 kg/m2 Binta Esperanza Other [facility] Other 07-25-2023 12:55-0400 Body temperature 102.1 [degF] Binta Esperanza Other [facility] Other 07-25-2023 12:55-0400 Body weight 93.9 kg Binta Esperanza Other [facility] Other 07-25-2023 12:55-0400 Diastolic blood pressure 85 mm[Hg] Binta Esperanza Other [facility] Other 07-25-2023 12:55-0400 Respiratory rate 18 /min Binta Esperanza Other [facility] Other 07-25-2023 12:55-0400 SaO2% (BldA) [Mass fraction] 96 % Binta Esperanza Other [facility] Other 07-25-2023 12:55-0400 Systolic blood pressure 136 mm[Hg] Binta Esperanza Other [facility] Other 12-12-2021 18:55-0500 Body height 180.34 cm Nadeen Coburn Other [facility] Other 12-12-2021 18:55-0500 Body mass index (BMI) [Ratio] 27.89 kg/m2 Nadeen Coburn Other [facility] Other 12-12-2021 18:55-0500 Body temperature 96.7 [degF] Nadeen Coburn Other [facility] Other 12-12-2021 18:55-0500 Body weight 90.72 kg Nadeen Coburn Other [facility] Other 12-12-2021 18:55-0500 Respiratory rate 18 /min Nadeen Coburn Other [facility] Other 12-12-2021 18:55-0500 SaO2% (BldA) [Mass fraction] 98 % Nadeen Coburn Other [facility] Other 07-09-2021 16:35-0400 Body height 180.34 cm Binta Jordanmond Other [facility] Other 07-09-2021 16:35-0400 Body mass index (BMI) [Ratio] 27.89 kg/m2 Binta Esperanza Other [facility] Other 07-09-2021 16:35-0400 Body temperature 97.3 [degF] Binta Esperanza Other [facility] Other 07-09-2021 16:35-0400 Body weight 90.72 kg Binta Esperanza Other [facility] Other 07-09-2021 16:35-0400 Diastolic blood pressure 82 mm[Hg] Binta Mata Other [facility] Other 07-09-2021 16:35-0400 Respiratory rate 18 /min Binta Mata Other [facility] Other 07-09-2021 16:35-0400 SaO2% (BldA) [Mass fraction] 98 % Binta Esperanza Other [facility] Other 07-09-2021 16:35-0400 Systolic blood pressure 147 mm[Hg] Binta Esperanza Other [facility] Other Encounters Encounter Date Encounter Type Care Provider Facility Start: 06-21-2024 End: 06-21-[address] [facility] Ambulatory Start: 06-07-2024 End: 06-07-2024 Patient encounter procedure MD Chay Reyna Work Phone: [facility] Work Phone: Start: 06-07-2024 End: 06-07-2024 ambulatory MD Chay Reyna Work Phone: [facility] Work Phone: Start: 06-03-2024 End: 06-03-2024 Emergency department patient visit MD Chay Reyna Work Phone: [facility] Work Phone: Start: 12-22-2023 End: 12-22-2023 ambulatory CHAY REYNA Not Available Start: 07-25-2023 End: 07-25-2023 ambulatory Binta Mata Other [facility] Other Start: 07-25-2023 Office outpatient vi sit 15 minutes Binta Mata [facility] Start: 12-09-2022 Encounter for genera l adult medical examination without abnormal findings DR CHAY REYNA [facility] Start: 11-26-2022 End: 11-27-[address] CHAY REYNA Facility:[facility] Start: 11-26-2022 End: 11-27-2022 Encounter for general adult medical examination without abnormal findings DR CHAY REYNA Facility:[facility] Start: 12-12-2021 End: 12-12-2021 ambulatory Nadeen Coburn Other [facility] Other Start: 12-12-2021 Office outpatient vi sit 15 minutes Nadeen Coburn [facility] Start: 07-09-2021 Office outpatient ne w 10 minutes Binta Mata [facility] Start: 02-09-2018 End: 02-10-2018 Ambulatory DEFAULT PHYSICIAN Facility:[facility] Procedures Date Procedure Procedure Detail Performing Clinician Start: 06-03-2024 Plain chest X-ray MD Lucero Reyna Work Phone: Start: 11-26-[address] CHAY CRUMP Comment on above: Performed By: #### [facility] #### [facility] [address] [address] [address] Buzz Hedrick Plan of Treatment Date Care Activity Detail Author Patient Education Palpitations (DC) [facility] Work Phone: Patient referral [facility] Work Phone: Payers Date Payer Category Payer Self-pay 1975 Unknown [id number] 1975 Unknown [id number] 1976 Unknown [id number] 1959 Unknown [id number] Unknown Unknown [id number] [id number] [id number] Unknown [id number] Social History Date Type Detail Facility Unknown if ever smoked [facility] Other Sex Assigned At Sex Assigned At Bir th [facility] Other Start: 06-03-2024 Tobacco smoking status NHIS Never smoked tobacco (finding) [facility] Start: 1975 Sex Assigned At Male F [facility] Evaluation note 07-25-2023 Note Date & Type Note Facility 07-25-2023 Evaluation note Encounter Date Diagnosis Assessment Notes Jul, Sore throat (ICD-10 - J02.9) Jul, Viral upper respiratory infection (ICD-10 - J06.9) Viral upper respiratory infection: adult home care material was printed Jul, Left ear impacted cerumen (ICD-10 - H61.22) Cerumen impaction home care material was printed Jul, Fever, unspecified fever cause (ICD-10 - R50.9) [facility] Other Evaluation note 12-12-2021 Note Date & Type Note Facility 12-12-2021 Evaluation note Encounter Date Diagnosis Assessment Notes Dec, Contact with and (suspected) exposure to other viral communicable diseases (ICD-10 - Z20.828) Dec, Influenza A (ICD-10 - J10.1) Symptoms presented today are related to the Flu. May use OTC medications such as Mucinex DM, Flu meds, etc. Kids can use Dimatapp or Delsym. Continue tylenol/ibu for general discomfort. Encourage fluids. Antibiotics will not treat the flu. Symptoms should improve within the next 4-7 days. Dec, Other Additional time spent conducting pre-visit phone call, screening for symptoms, instructions on social distancing, application and removal of PPE, and cleaning of examination room, equipment and supplies was preformed. Patient education given for testing methodology and results. Patient care instructions given in writting by [facility] Care At Home document. [facility] Other Evaluation note 07-09-2021 Note Date & Type Note Facility 07-09-2021 Evaluation note Encounter Date Diagnosis Assessment Notes Jun, Achilles tendinitis of left lower extremity (ICD-10 - M76.62) Achilles tendonopathy material was printed. Drink plenty of fluids, get plenty of rest. Take the naproxen as prescribed for pain. Follow-up with an orthopedic physician of your choice if no improvement in 5 to 7 days. [facility] Other Evaluation note Note Date & Type Note Facility Evaluation note No assessment information availa ble [facility] Work Phone: History general Narrative - Reported Note Date & Type Note Facility History general Narrative - Reported Type Medical History hypertension Surgical History vasectomy [facility] Other Hospital Discharge instructions Note Date & Type Note Facility Hospital Discharge instructions Additional Instructions Follow-up with your primary care doctor Return to ED if develop worsening symptoms or concerns [facility] Work Phone: Summary Purpose Family History No Family History Records Found Relationship Condition Age at Onset Recorded Date/T graciela father Hypertension Unknown mother Hypertension Unknown Advance Directives No Advanced Directives Records Found Advance Directive Response Recorded Date/ Time Advance Directives No June 03, 2024 3:41pm Chief Complaint and Reason for Visit Chief Complaint irregular heartbeat Chief Complaint irregular heartbeat heart palpitations Additional Source Comments (unrecognized sect ion and content) No Status Records FoundNo Status Records FoundNo Status Records FoundNo Status Records FoundNo Status Records Found INFORMATION SOURCE (unrecogn ized section and content) DATE CREATED AUTHOR 04/01/2018 [facility] DATE CREATED AUTHOR AUTHOR'S ORGANIZ ATION 12/11/2022 [facility] DATE CREATED AUTHOR AUTHOR'S ORGANIZ ATION 12/23/2023 [facility] EPIC DATE CREATED AUTHOR AUTHOR'S ORGANIZ ATION 06/21/2024 [facility] DATE CREATED AUTHOR AUTHOR'S ORGANIZ ATION 06/23/2024 [facility] Ambulatory REASON FOR VISIT (unrecogniz ed section and content) LEFT HEEL PAINBLACK F250, H/ A, FEVER, COVID Provider VisitFEVER SORE STHROAT, EARS Care Teams (unrecognized sec tion and content) Team Status: Active Member Role Status Dates Chay Reyna MD Primary Care Provider Active Team Status: Inactive Member Role Status Dates Chay Reyna MD Primary Care Provider Active S tart: June 03, 2024 End: June 03, 2024 Gucci Rashid DO Emergency Provider Active Sta rt: June 03, 2024 End: June 03, 2024 Team Status: Inactive Member Role Status Dates Chay Reyna MD Primary Care Provider Active S tart: June 07, 2024 End: June 07, 2024 Gucci Rashid DO Attending Provider Active Sta rt: June 07, 2024 End: June 07, 2024 Goals (unrecognized section and content) Goals may be documented in a n alternate section FOR RECORDS PERTAINING TO PATIENTS WHO ARE OR HAVE BEEN ENROLLED IN A CHEMICAL DEPENDENCY/SUBSTANCEABUSE PROGRAM, SOME INFORMATION MAY BE OMITTED. This clinical summary was aggregated from multiple sources. Caution should be exercised in using it in the provision of clinical care. This summary normalizes information from multiple sources, and as a consequence, information in this document may materially change the coding, format and clinical context of patient data. In addition, data may be omitted in some cases. CLINICAL DECISIONS SHOULD BE BASED ON THE PRIMARY CLINICAL RECORDS. [facility]. provides no warranty or guarantee of the accuracy or completeness of information in this document.
[2024-07-21 08:53] LABS: Anion Gap 10.8; BUN Creatinine Ratio 12.1; Calcium 9.6 mg/dL (8.5-10.1); Carbon Dioxide 31.6 mmol/L (21.0-32.0); Chloride 102 mmol/L (98-107); Estimated GFR (African America >60 (>=60 mL/min/1.73m^2); Estimated GFR (Non-African Ame >60 (>=60 mL/min/1.73m^2); Glucose 92 mg/dL (74-106); Potassium 3.4 mmol/L (3.5-5.1); Sodium 141 mmol/L (136-145)
== END 2024-07-21 07:40 | disposition home or self-care (01) ==
LOC: LAB 07:40
PROVIDERS: PCP Family Medicine; Visit Provider Internal Medicine Cardiovascular Disease
DX: R00.2 Palpitations (principal); I49.3 Ventricular premature depolarization
CPT/HCPCS: 36415; 80048

== ENCOUNTER 2024-08-22 08:52 | Outpatient (OUT) | payer OTHER, SELFPAY ==
[2024-08-22 10:24] LABS: Anion Gap 13.1; Calcium 10.1 mg/dL (8.5-10.1); Carbon Dioxide 28.1 mmol/L (21.0-32.0); Chloride 105 mmol/L (98-107); Estimated GFR (African America >60 (>=60 mL/min/1.73m^2); Estimated GFR (Non-African Ame >60 (>=60 mL/min/1.73m^2); Glucose 82 mg/dL (74-106); Potassium 4.2 mmol/L (3.5-5.1); Sodium 142 mmol/L (136-145)
== END 2024-08-22 08:53 | disposition home or self-care (01) ==
LOC: LAB 08:53
PROVIDERS: PCP Family Medicine; Visit Provider Internal Medicine Cardiovascular Disease
DX: I49.3 Ventricular premature depolarization (principal)
CPT/HCPCS: 36415; 80048

== ENCOUNTER 2024-12-30 10:38 | Outpatient (OUT) | payer OTHER, SELFPAY ==
[2024-12-30 11:11] LABS: Basophils Absolute Auto 0.1 10^3/uL (0.0-0.1); Basophils Percent Auto 0.9 % (0.2-2.0); Eosinophils Absolute Auto 0.2 10^3/uL (0.0-0.7); Eosinophils Percent Auto 2.3 % (0.9-7.0); Hematocrit 49.1 % (42.0-54.0); Hemoglobin 16.6 g/dL (14.0-18.0); Immature Granulocytes Abs Auto 0.02 10^3/uL (0.00-0.03); Immature Granulocytes Pct Auto 0.3 % (0.0-0.5); Lymphocytes Percent Auto 28.7 % (20.5-60.0); Mean Corpuscular HGB Conc 33.8 g/dL (29.9-35.2); Mean Corpuscular Hemoglobin 29.4 pg (25.9-34.0); Mean Corpuscular Volume 87.1 fL (80.0-94.0); Monocytes Absolute Auto 0.6 10^3/uL (0.3-0.8); Monocytes Percent Auto 8.8 % (1.7-12.0); Platelet Count 231 10^3/uL (150-450); Red Blood Count 5.64 10^6/uL (4.70-6.10); Red Cell Distribution Width 11.9 % (11.0-15.0); White Blood Count 6.8 10^3/uL (4.0-11.0)
[2024-12-30 11:42] LABS: Estimated Average Glucose 111 mg/dL; Glycohemoglobin A1C 5.5 % (4.5-6.2)
[2024-12-30 12:01] LABS: Alanine Aminotransferase 70 U/L (16-63); Albumin Globulin Ratio 0.9; Albumin Level 3.7 g/dL (3.4-5.0); Alkaline Phosphatase 88 U/L (46-116); Anion Gap 9.9; Aspartate Amino Transferase 30 U/L (15-37); BUN Creatinine Ratio 11.9; Bilirubin Direct 0.1 mg/dL (0.0-0.2); Bilirubin Total 0.5 mg/dL (0.2-1.0); Calcium 9.4 mg/dL (8.5-10.1); Carbon Dioxide 28.1 mmol/L (21.0-32.0); Chloride 105 mmol/L (98-107); Chol HDL Ratio 3.6; Cholesterol 192 mg/dL (<=200); Estimated GFR (African America >60 (>=60 mL/min/1.73m^2); Estimated GFR (Non-African Ame >60 (>=60 mL/min/1.73m^2); Glucose 88 mg/dL (74-106); HDL Cholesterol 54 mg/dL (40-60); Sodium 139 mmol/L (136-145); Thyroid Stimulating Hormone 0.473 uIU/mL (0.358-3.740); Total Protein 7.7 g/dL (6.4-8.2); Triglycerides 187 mg/dL (<=150); VLDL CHOLESTEROL 37.4 mg/dL
[2024-12-30 12:10] LABS: Prostate Specific Antigen Scrn 0.88 ng/mL (<=4.00)
== END 2024-12-30 10:39 | disposition home or self-care (01) ==
LOC: LAB 10:41
PROVIDERS: PCP Family Medicine
DX: Z00.00 Encounter for general adult medical examination without abnormal findings (principal); Z12.5 Encounter for screening for malignant neoplasm of prostate; R00.2 Palpitations; E78.5 Hyperlipidemia, unspecified; I10 Essential (primary) hypertension; Z79.899 Other long term (current) drug therapy; E66.811 Obesity, class 1; E66.09 Other obesity due to excess calories; Z68.30 Body mass index [BMI] 30.0-30.9, adult
CPT/HCPCS: 36415; 80048; 80061; 80076; 83036; 84443; 85025; G0103

== ENCOUNTER 2025-04-04 09:29 | Outpatient (OUT) | payer OTHER, SELFPAY ==
--- OUTSIDE RECORDS SUMMARY | 2025-04-04 09:32 | XMS_ITS | Encounter Summary ---
Author Organization [facility] Address [address] [place] [address] Phone Care Team Providers Care House Furnishings Supervisor Name Role Phone Chay Lucio MD Primary Care Provider + Encounter Details Date Type Department Care Team (Late st Contact Info) Description 06/03/2024 Scanned Document [facility] [address] [place] [phone] Scanning, Generic Provider Social History Tobacco Use Types Packs/Day Years Used Date Smoking Tobacco: Never Assessed Sex and Gender Information Value Date Recorded Sex Assigned at Not on file Legal Sex Male 7:42 AM EDT Gender Identity Not on file Sexual Orientation Not on file documented as of this encounter Plan of Treatment Upcoming Encounters Date Type Department Care Team (Late st Contact Info) Description 12/01/2025 9:20 AM EST Office Visit [facility] [address] [facility] [address] [place] [address] Tasneem Givens MD [address] [facility] [address] [place] [address] documented as of this encounter Procedures Procedure Name Priority Date/Time Associated Diagnosis Comments OUTSIDE IMAGING SCAN 06/03/2024 documented in this encounter Results * OUTSIDE IMAGING SCAN (06/03/2024) Anatomical Region Laterality Modality Other Narrative 06/03/2024 Ordered by an unspecified provider. us Generic Provider Scanning OUTSIDE SCAN Final Result documented in this encounter Visit Diagnoses Not on filedocumented in this encounter Care Teams House Furnishings Supervisor Relationship Specialty Start Date End Date Chay Lucio MD [address] [place] [address] PCP - General Family Medicine 06/21/24 documented as of this encounter
--- OUTSIDE RECORDS SUMMARY | 2025-04-04 09:32 | XMS_ITS | Clinical Summary ---
Author Organization [facility] Healthcare Address [address] [place] [address] Care Team Providers Care Two Way Radio Technician Name Role Phone Chay Lucio MD Primary Care Provider [phone] Chay Lucio MD Unavailable Allergies No known active allergies Medications cholecalciferol (Vitamin D-3) 50 MCG (1999) tablet Take 1 tablet by mouth in the morning. Active EPINEPHrine (Epipen) 0.3 MG/0.3ML injection syringeIndicati ons:Allergic reaction, subsequent encounter INJECT 1 pen INTRAMUSCULARLY into the upper leg DIRECTED once; call 911 after use 2 each 1 06/10/20 24 Active hydroCHLOROthia zide (HYDRODiuril) 25 MG tabletIndicatio ns:Essential hypertension, benign TAKE 1 TABLET BY MOUTH IN THE MORNING 30 tablet 11 11/07/19 25 Active metoprolol succinate XL (Toprol-XL) 50 MG 24 hr tabletIndicatio ns:Premature ventricular contraction TAKE 1 TABLET BY MOUTH DAILY 30 tablet 5 11/07/19 25 Active potassium chloride CR (Klor-Con M20) 20 MEQ ER tablet Take 20 mEq by mouth in the morning and 20 mEq in the evening. 07/11/20 24 025 Active magnesium oxide (Mag-Ox) 400 MG tablet 06/21/20 24 Active Active Problems Problem Noted Date Diagnosed Date Encounter for long-term (current) use of medicat ions 01/12/2025 Obesity 01/12/2025 Screening PSA (prostate specific antigen) 2024 Dyslipidemia 01/12/2025 Palpitation 06/09/2024 Assessment & Plan (06/09/2024 4:03 PM EDT): Frequent symptoms and continue metoprolol. Holter results pending. Follow up with cardiology. Premature ventricular contraction 06/03/2024 Assessment & Plan (06/09/2024 4:03 PM EDT): Frequent symptoms and continue metoprolol. Holter results pending. Follow up with cardiology. Annual physical exam 12/22/2023 Assessment & Plan (12/30/2024 10:23 AM EDT): Due for labs. Discussed proper diet and regular aerobic exercise. Need aerobic exercise 5-6 days a week for 30 minutes at a time. Smaller portions and limit total calories. Cologuard normal in October 2021 but now needs repeat screening. Refer for colonoscopy. Tetanus every 10 years. Advised not to smoke. Discussed daily Aspirin therapy. Assessment & Plan (12/22/2023 2:28 PM EDT): Due for labs. Discussed proper diet and regular aerobic exercise. Need aerobic exercise 5-6 days a week for 30 minutes at a time. Smaller portions and limit total calories. Cologuard normal in October 2021. Tetanus every 10 years. Advised not to smoke. Discussed daily Aspirin therapy. Essential hypertension, benign 11/25/2023 Assessment & Plan (12/30/2024 10:23 AM EDT): BP elevated in office but controlled at home and monitor PRN. Discussed DASH diet. Assessment & Plan (06/09/2024 4:03 PM EDT): BP controlled and monitor PRN. Discussed DASH diet. Assessment & Plan (12/22/2023 2:29 PM EDT): BP elevated today but normal in past. Monitor PRN. Discussed DASH diet. Bilateral hearing loss 11/25/2023 Vitamin D deficiency 11/25/2023 Tinnitus, left 11/25/2023 Encounters Date Type Department Care Team Description 02/01/2025 Telephone [facility] [address] [place] [address] Chay Lucio MD 01/12/2025 Telephone [facility] [address] [place] [address] Chay Lucio MD from Last 3 Months Immunizations Immunization Administration Dates Next Due Influenza, injectable, MDCK, preservative free, quadrivalent 08/19/2023 Tdap 02/22/2014 Family History Medical History Relation Name Comments Hyperlipidemia Other Hypertension Other Relation Name Status Comments Other Social History Tobacco Use Types Packs/Day Years Used Date Smoking Tobacco: Never Smokeless Tobacco: Never Tobacco Cessation:Counseling Given: Not Answered B1300 Health Literacy Answer Date Recor ded How often do you need to hav e someone help you when you read instructions, pamphlets, or other written material from your doctor or pharmacy? Never 06/08/2024 Social Connection and Isolat ion Panel [NHANES] Answer Date Recorded In a typical week, how many times do you talk on the phone with family, friends, or neighbors? Twice a week 06/08/2024 How often do you get togethe r with friends or relatives? Once a week 06/08/2024 How often do you attend chur or adventist services? More than 4 times per year 06/08/2024 Do you belong to any clubs o r organizations such as denominational groups, unions, fraternal or athletic groups, or school groups? Yes 06/08/2024 How often do you attend meet ings of the clubs or organizations you belong to? 1 to 4 times per year 06/08/2024 Are you , , di vorced, , never , or living with a partner? 06/08/2024 AUDIT-C Answer Date Recorded Q1: How often do you have a drink containing alc ohol? 2-4 times a month 06/08/2024 Q2: How many drinks containi ng alcohol do you have on a typical day when you are drinking? 1 or 2 06/08/2024 Q3: How often do you have si x or more drinks on one occasion? Never 06/08/2024 Overall Financial Resource Strain (CARDIA) Answe r Date Recorded How hard is it for you to pa y for the very basics like food, housing, medical care, and heating? Not hard at all 06/08/2024 [facility] - Occupational Stress Questionnaire Answer Date Recorded Do you feel stress - tense, restless, nervous, or anxious, or unable to sleep at night because your mind is troubled all the time - these days? To some extent 06/08/2024 Exercise Vital Sign Answer Date Recorde d On average, how many days pe r week do you engage in moderate to strenuous exercise (like a brisk walk)? 2 days 06/08/2024 On average, how many minutes do you engage in exercise at this level? 60 min 06/08/2024 Hunger Vital Sign Answer Date Recorded Within the past 12 months, y ou worried that your food would run out before you got the money to buy more. Never true 06/08/20 24 Within the past 12 months, t he food you bought just didn't last and you didn't have money to get more. Never true 06/08/2024 PRAPARE - Transportation Answer Date Re corded In the past 12 months, has l ack of transportation kept you from medical appointments or from getting medications? No 05/13 In the past 12 months, has l ack of transportation kept you from meetings, work, or from getting things needed for daily living? No 06/08/2024 Housing Stability Vital Sign Answer Landon e Recorded In the last 12 months, was t here a time when you were not able to pay the mortgage or rent on time? No 06/08/2024 In the past 12 months, how m any times have you moved where you were living? 0 06/08/2024 At any time in the past 12 m [facility], were you homeless or living in a fci (including now)? No 06/08/2024 Sex and Gender Information Value Date Recorded Sex Assigned at Not on file Legal Sex Male 8:21 PM EDT Gender Identity Not on file Sexual Orientation Not on file Last Filed Vital Signs Vital Sign Reading Time Taken Comments Blood Pressure 160/94 12/30/2024 9:47 AM EDT Pulse 91 12/30/2024 9:47 AM EDT Temperature 36.4 C (97.5 F) 12/30/2024 9:47 AM EDT Respiratory Rate 18 12/30/2024 9:47 AM EDT Oxygen Saturation 99% 12/30/2024 9:47 AM EDT Inhaled Oxygen Concentration - - Weight 96.6 kg (213 lb) 12/30/2024 9:47 AM EDT Height 180.3 cm (5' 11 ) 12/30/2024 9:47 AM EDT Body Mass Index 29.71 12/30/2024 9:47 AM EDT Plan of Treatment Upcoming Encounters Date Type Department Care Team (Late st Contact Info) Description 07/05/2025 7:00 AM EDT Office Visit [facility] [address] [place] [phone] Chay Lucio MD [address] [place] [address] Health Maintenance Due Date Last Done Comments CT Colonography 1975 Colonoscopy 1975 FIT 1975 FOBT 1975 Sigmoidoscopy 1975 Colorectal Cancer Screening 10/28/2024 FIT-DNA 10/28/2024 10/28/2021 Influenza Vaccine (Season Ended) 2025 08/19/20 23 Insurance [employer] Care Teams Two Way Radio Technician Relationship Specialty Start Date End Date Chay Lucio MD [address] [place] [address] PCP - General Family Medicine 11/02/23 Chay Lucio MD [address] [place] [address] PCP - Medical [facility] 04/11/19 10/11/99
--- OUTSIDE RECORDS SUMMARY | 2025-04-04 09:32 | XMS_ITS | Encounter Summary ---
Author Organization [facility] Address [address] [place] [address] Care Team Providers Care Commercial Lines Account Manager Name Role Phone Chay Lucio MD Primary Care Provider [phone] Chay Lucio MD Unavailable Encounter Details Date Type Department Care Team (Late st Contact Info) Description 06/15/2024 Orders Only [facility] [address] [place] [phone] Gucci Rashid MD [address] [place] [address] Social History Tobacco Use Types Packs/Day Years Used Date Smoking Tobacco: Never Smokeless Tobacco: Never B1300 Health Literacy Answer Date Recor ded [...] 06/08/2024 How often do you attend chur ch or quaker services? More than 4 times per year 06/08/2024 Do you belong to any clubs o r organizations such as sabianism groups, unions, fraternal or athletic groups, or [...] and heating? Not hard at all 06/08/2024 [facility] - Occupational Stress Questionnaire Answer Date Recorded [...] were you homeless or living in a nursing home (including now)? No 06/08/2024 Sex and Gender Information Value Date Recorded Sex Assigned at Not on file Legal Sex Male 8:21 PM EDT Gender Identity Not on file Sexual Orientation Not on file documented as of this encounter Plan of Treatment Upcoming Encounters Date Type Department Care Team (Late st Contact Info) Description 07/05/2025 7:00 AM EDT Office Visit [facility] [address] [place] [address] Chay Lucio MD [address] [place] [phone] documented as of this encounter Procedures Procedure Name Priority Date/Time Associated Diagnosis Comments HOLTER MONITOR 48 HOUR Routine 06/15/2024 8:06 AM EDT documented in this encounter Results * Holter monitor 48 hour (06/15/2024 8:06 AM EDT) Anatomical Region Laterality Modality Other Gucci Rashid MD CV CARDIAC SERVICES PROCEDURES F inal Result documented in this encounter Visit Diagnoses Not on filedocumented in this encounter Care Teams Commercial Lines Account Manager Relationship Specialty Start Date End Date Chay Lucio MD [address] [place] [phone] PCP - General Family Medicine 11/02/23 Chay Lucio MD [address] [place] [phone] PCP - Medical [place] [employer] 04/11/19 10/11/99 documented as of this encounter
--- OUTSIDE RECORDS SUMMARY | 2025-04-04 09:32 | XMS_ITS | Encounter Summary ---
Author Organization [facility] Address [address] [place] [address] Care Team Providers Care Comsec Manager Name Role Phone Chay Lucio MD Primary Care Provider [phone] Chay Lucio MD Unavailable Encounter Details Date Type Department Care Team (Late st Contact Info) Description 06/10/2024 Orders Only [facility] [address] [place] [address] Gucci Rashid MD [address] [place] [address] Social History Tobacco Use Types Packs/Day [...] often do you attend chur ch or mandaen services? More than 4 times per year 06/08/2024 Do you belong to any clubs o r organizations such as congregational groups, unions, fraternal or athletic groups, or [...] and heating? Not hard at all 06/08/2024 [facility] [place] [facility]at ional [facility] - Occupational Stress [...] any time in the past 12 m [facility], were you homeless or living in a correction (including now)? No 06/08/2024 Sex and Gender [...] Office Visit [facility] [address] [place] [address] Chay Lucio MD [address] [place] [phone] documented as of this encounter Procedures Procedure Name Priority Date/Time Associated Diagnosis Comments XR CHEST 2 VIEWS Routine 06/10/2024 7:04 AM EDT ECG 12-LEAD Routine 06/10/2024 7:03 AM EDT documented in this encounter Results * XR chest 2 views (06/10/2024 7:04 AM EDT) Anatomical Region Laterality Modality Chest Radiographic Jana ging us Gucci Rashid MD IMG XR PROCEDURES Final Result * ECG 12 lead (06/10/2024 7:03 AM EDT) us Gucci Rashid MD ECG ORDERABLES Final Result documented in this encounter Visit Diagnoses Not on filedocumented in this encounter Care Teams Comsec Manager Relationship Specialty Start Date End Date Chay Lucio MD [address] [place] [phone] PCP - General Family Medicine 11/02/23 Chay Lucio MD [address] [place] [address] PCP - Medical [place] [facility] 04/11/19 10/11/99 documented as of this encounter
--- OUTSIDE RECORDS SUMMARY | 2025-04-04 09:32 | XMS_ITS | Encounter Summary ---
Author Organization [facility] Address [address] [place] [address] Care Team Providers Care Group Exercise Class Instructor Name Role Phone Chay Lucio MD Primary Care Provider Chay Lucio MD Unavailable Encounter Details Date Type Department Care Team (Late st Contact Info) Description 08/03/2024 Clinisync Result Encounter [facility] External Department Unsolicited Provider, Generic External Data Social History Tobacco Use Types Packs/Day Years [...] often do you attend chur ch or shinto services? More than 4 times per year 06/08/2024 Do you belong to any clubs o r organizations such as voodoo groups, unions, fraternal or athletic groups, or [...] and heating? Not hard at all 06/08/2024 [facility] - Occupational Stress [...] any time in the past [address] [facility], were you homeless or living in a prison (including now)? No 06/08/2024 Sex and Gender Information Value Date Recorded Sex Assigned at Not on file Legal Sex Male 8:21 PM EDT Gender Identity Not on file Sexual Orientation Not on file documented as of this encounter Plan of Treatment Upcoming Encounters Date Type Department Care Team (Late st Contact Info) Description 07/05/2025 7:00 AM EDT Office Visit [facility] [address] [place] [address] Chay Lucio MD [address] [place] [address] documented as of this encounter Procedures Procedure Name Priority Date/Time Associated Diagnosis Comments STRESS TEST ONLY 08/03/2024 10:0 5 AM EDT documented in this encounter Results * Stress test (08/03/2024 10:05 AM EDT) Anatomical Region Laterality Modality Heart Other 08/03/2024 10:0 5 AM EDT Narrative 08/04/2024 2:50 PM EDT [address], [place] [address] Exercise Stress Test Patient Name: RAVINDER HARDY Ordering Provider: [id number] MINDA KELSEY Study Date: 08/03/2024 Reading Physician: Carlene Dominguez MD, FAC MRN/PID: [id number] Supervising Physician: Carlene Dominguez MD, FACC Fellow: Date of /Age: 12 1975 Fellow: years Gender: M Nurse: Beatrice Mcintosh RN Admission Status: Folder Operator: ANA PAULA Height: 180.34 cm Technologist: Weight: 90.72 kg Additional Staff: BSA: 2.11 m2 BMI: 27.89 kg/m2 Patient Location: Study Type: STRESS TEST ONLY Diagnosis/ICD: Abnormal electrocardiogram [ECG] [EKG]-R94.31 Indication: Abnormal EKG CPT Codes: Stress Test Interpretation-36968; Stress Test Supervision-[id number] Falls Risk: Low: Patient has low risk for sustaining a fall; environmental safety interventions in place. Study Details: Correct procedure and correct patient verified verbally. Patient History: Allergies: None. Patient Performance: The peak heart rate achieved was 187 bpm, which was 109 % of the age predicted target heart rate of 172 bpm. The resting blood pressure was 132/82 mmHg with a heart rate of 74 bpm. The standing blood pressure was 136/84 mmHg with a heart rate of 72 bpm. The patient's functional capacity was below average. The patient developed fatigue during the stress exam. The blood pressure response was normal. The test was terminated due to: fatigue. Double Product (HR x BP): 303. Baseline ECG: Resting ECG showed normal sinus rhythm. Stress Stage Data: + +---+------+-------+ HR Sys BP Shay BP + +---+------+-------+ Baseline Resting 74 132 82 + +---+------+-------+ Baseline Standing 72 136 84 + +---+------+-------+ Stage I 111 138 86 + +---+------+-------+ Stage II 137 142 82 + +---+------+-------+ Stage III 187 162 80 + +---+------+-------+ Recovery ECG: Recovery ECG showed sinus tachycardia. The heart rate recovery was abnormal. + +---+------+-------+ HR Sys BP Shay BP + +---+------+-------+ Recovery I 187 166 82 + +---+------+-------+ Recovery II 179 164 84 + +---+------+-------+ Recovery III 131 148 84 + +---+------+-------+ Recovery IV 123 128 86 + +---+------+-------+ Recovery V 110 + +---+------+-------+ Summary: 1. 1_no exercise-induced ischemic ST segment abnormalities, chest pain or cardiac arrhythmias after completing 9 minutes on a Ronaldo protocol and achieving 108% of predicted maximal heart rate and workload of 10.1 METS. Maximal blood pressure was 166/82 mmHg. 2_inappropriate heart rate recovery. The patient's heart rate did not go back to baseline after 12 minute into the recovery phase. 3_reasonable exercise tolerance for age Abnormal heart rate recovery could be related to deconditioning. 2. Adequate level of stress achieved. [id number] Bk Dominguez MD, FACC Electronically signed on 08/04/2024 at 2:50:14 PM Final Procedure Note Radiology, RadiologistMD - 08/04/[address], Suite [facility], [place] [address] Exercise Stress Test Patient Name: RAVINDER HARDY Ordering Provider: [id number] KELSEY Study Date: 08/03/2024 Reading Physician: [id number] Dominguez MD,FACC MRN/PID: [id number] Supervising Physician: [id number] Dominguez MD,[facility] Fellow: Date of /Age: 12 1975 Fellow: years Gender: M Nurse: Beatrice Card Admission Status: Folder Operator: ANA PAULA Height: 180.34 cm Technologist: Weight: 90.72 kg Additional Staff: BSA: 2.11 m2 BMI: 27.89 kg/m2 Patient Location: Study Type: STRESS TEST ONLY Diagnosis/ICD: Abnormal electrocardiogram [ECG] [EKG]-R94.31 Indication: Abnormal EKG CPT Codes: Stress Test Interpretation-62141; Stress TestSupervision-[id number] Falls Risk: Low: Patient has low risk for sustaining a fall; environmentalsafety interventions in place. Study Details: Correct procedure and correct patient verified verbally. Patient History: Allergies: None. Patient Performance: The peak heart rate achieved was 187 bpm, which sci083 % of the age predicted target heart rate of 172 bpm. The resting bloodpressure was 132/82 mmHg with a heart rate of 74 bpm. The standing bloodpressure was 136/84 mmHg with a heart rate of 72 bpm. The patient'sfunctional capacity was below average. The patient developed fatigueduring the stress exam. The blood pressure response was normal. The testwas terminated due to: fatigue. Double Product (HR x BP): 303. Baseline ECG: Resting ECG showed normal sinus rhythm. Stress Stage Data: + +---+------+-------+ HR Sys BP Shay BP + +---+------+-------+ Baseline Resting 74 132 82 + +---+------+-------+ Baseline Standing 72 136 84 + +---+------+-------+ Stage I 111 138 86 + +---+------+-------+ Stage II 137 142 82 + +---+------+-------+ Stage III 187 162 80 + +---+------+-------+ Recovery ECG: Recovery ECG showed sinus tachycardia. The heart raterecovery was abnormal. + +---+------+-------+ HR Sys BP Shay BP + +---+------+-------+ Recovery I 187 166 82 + +---+------+-------+ Recovery II 179 164 84 + +---+------+-------+ Recovery III 131 148 84 + +---+------+-------+ Recovery IV 123 128 86 + +---+------+-------+ Recovery V 110 + +---+------+-------+ Summary: 1. 1_no exercise-induced ischemic ST segment abnormalities, chest pain orcardiac arrhythmias after completing 9 minutes on a Ronaldo protocol andachieving 108% of predicted maximal heart rate and workload of 10.1 METS.Maximal blood pressure was 166/82 mmHg. 2_inappropriate heart rate recovery. The patient's heart rate did notgo back to baseline after 12 minute into the recovery phase. 3_reasonable exercise tolerance for age Abnormal heart rate recovery could be related to deconditioning. 2. Adequate level of stress achieved. [id number] Bk Dominguez MD, [facility] Electronically signed on 08/04/2024 at 2:50:14 PM Final us Generic External Data Provider CV STRESS PROCEDU RES Final Result documented in this encounter Visit Diagnoses Not on filedocumented in this encounter Care Teams Group Exercise Class Instructor Relationship Specialty Start Date End Date Chay Lucio MD [address] [place] [address] PCP - General Family Medicine 11/02/23 Chay Lucio MD [address] [place] [address] PCP - Medical [place] [employer] 04/11/19 10/11/99 documented as of this encounter
--- OUTSIDE RECORDS SUMMARY | 2025-04-04 09:32 | XMS_ITS | Encounter Summary ---
Author Organization [facility] Address [address] [place] [address] Phone Care Team Providers Care Change Control Analyst Name Role Phone Chay Lucio MD Primary Care Provider + Encounter Details Date Type Department Care Team (Late st Contact Info) Description 08/22/2024 Scanned Document [facility] [address] [place] [phone] Scanning, Generic Provider Social History Tobacco Use Types Packs/Day Years Used Date Smoking Tobacco: Never Smokeless Tobacco: Never Alcohol Use Standard Drinks/Week Comments Yes 0 (1 standard drink = 0.6 oz pur e alcohol) occasionally Sex and Gender Information Value Date Recorded Sex Assigned at Not on file Legal Sex Male 7:42 AM EDT Gender Identity Not on file Sexual Orientation Not on file COVID-19 Exposure Response Date Recorded In the last 10 days, have yo u been in contact with someone who was confirmed or suspected to have Coronavirus/COVID-19? No / Unsure 08/08/2024 9:35 AM EDT documented as of this encounter Plan of Treatment Upcoming Encounters Date Type Department Care Team (Late st Contact Info) Description 12/01/2025 9:20 AM EST Office Visit [facility] [address] [facility] [address] [place] [address] Tasneem Givens MD [address] [facility] [address] [place] [address] documented as of this encounter Procedures Procedure Name Priority Date/Time Associated Diagnosis Comments OUTSIDE LAB SCAN 08/22/2024 documented in this encounter Results * OUTSIDE LAB SCAN (08/22/2024) Narrative 08/22/2024 Ordered by an unspecified provider. us Generic Provider Scanning OUTSIDE SCAN Final Result documented in this encounter Visit Diagnoses Not on filedocumented in this encounter Care Teams Change Control Analyst Relationship Specialty Start Date End Date Chay Lucio MD [address] [place] [address] PCP - General Family Medicine 06/21/24 documented as of this encounter
--- OUTSIDE RECORDS SUMMARY | 2025-04-04 09:32 | XMS_ITS | Encounter Summary ---
Author Organization [facility] Address [address] [place] [address] Care Team Providers Care Pilot Manager Name Role Phone Chay Lucio MD Primary Care Provider [phone] Chay Lucio MD Unavailable Encounter Details Date [...] often do you attend chur ch or jewish services? More than 4 times per year 06/08/2024 Do you belong to any clubs o r organizations such as holiness groups, unions, fraternal or athletic groups, or [...] and heating? Not hard at all 06/08/2024 [facility] - Occupational Stress [...] any time in the past 12 m [facility], were you homeless or living in a assisted (including now)? No 06/08/2024 Sex and Gender Information Value Date Recorded Sex Assigned at Not on file Legal Sex Male 8:21 PM EDT Gender Identity Not on file Sexual Orientation Not on file documented as of this encounter Plan of Treatment Upcoming Encounters Date Type Department Care Team (Late st Contact Info) Description 07/05/2025 7:00 AM EDT Office Visit [facility] [address] [place] [address] Chay Lucio MD [address] [place] [address] documented as of this encounter Procedures Procedure Name Priority Date/Time Associated Diagnosis Comments TRANSTHORACIC ECHO (TTE) COMPLETE 08/03/2024 9:53 AM EDT documented in this encounter Results * Transthoracic echo (TTE) complete (08/03/2024 9:53 AM EDT) Anatomical Region Laterality Modality Ultrasound 08/03/2024 9:53 AM EDT Narrative 08/03/2024 5:31 PM EDT [address], [address] [place] [address] TRANSTHORACIC ECHOCARDIOGRAM REPORT Patient Name: RAVINDER HARDY Reading Physician: [id number] Givens MD Study Date: 08/03/2024 Ordering Provider: Blanca GIVENS MRN/PID: [id number] Fellow: Nurse: Date of /Age: 12 1975 / 48 years Promotion Manager: AKILAH Gender: M Additional Staff: Height: 180.34 cm Admit Date: Weight: 90.72 kg Admission Status: BSA / BMI: 2.11 m2 / 27.89 kg/m2 Department Location: [facility] Blood Pressure: 146 /80 mmHg Study Type: TRANSTHORACIC ECHO (TTE) COMPLETE Diagnosis/ICD: Palpitations-R00.2; Ventricular premature depolarization-I49.3; Abnormal electrocardiogram [ECG] [EKG]-R94.31 Indication: HTN CPT Codes: Echo Complete w Full Doppler-14412 Study Detail: The following Echo studies were performed: 2D, M-Mode, Doppler and color flow. PHYSICIAN INTERPRETATION: Left Ventricle: The left ventricular systolic function is normal, with a visually estimated ejection fraction of 65%. The left ventricle was not well visualized. The left ventricular ejection fraction could not be measured. There are no regional wall motion abnormalities. The left ventricular cavity size is normal. Spectral Doppler shows a normal pattern of left ventricular diastolic filling. Left Atrium: The left atrium is normal in size. Right Ventricle: The right ventricle is normal in size. There is normal right ventricular global systolic function. Right Atrium: The right atrium is normal in size. Aortic Valve: The aortic valve is trileaflet. The aortic valve dimensionless index is 0.67. There is no evidence of aortic valve regurgitation. The peak instantaneous gradient of the aortic valve is 9.1 mmHg. The mean gradient of the aortic valve is 5.0 mmHg. Mitral Valve: The mitral valve is normal in structure. There is no evidence of mitral valve regurgitation. Tricuspid Valve: The tricuspid valve is structurally normal. No evidence of tricuspid regurgitation. Pulmonic Valve: The pulmonic valve is structurally normal. There is no indication of pulmonic valve regurgitation. Pericardium: No pericardial effusion noted. Aorta: The aortic root is normal. Additional Comments: Normal Echocardiogram. CONCLUSIONS: 1. Normal Echocardiogram. 2. The left ventricle was not well visualized. The left ventricular ejection fraction could not be measured. 3. The left ventricular systolic function is normal, with a visually estimated ejection fraction of 65%. 4. There is normal right ventricular global systolic function. QUANTITATIVE DATA SUMMARY: 2D MEASUREMENTS: Normal Ranges: Ao Root d: 2.80 cm (2.0-3.7cm) LAs: 3.20 cm (2.7-4.0cm) RVIDd: 3.12 cm (0.9-3.6cm) IVSd: 0.83 cm (0.6-1.1cm) LVPWd: 0.85 cm (0.6-1.1cm) LVIDd: 4.93 cm (3.9-5.9cm) LVIDs: 2.84 cm LV Mass Index: 67.0 g/m2 LV % FS 42.4 % LV SYSTOLIC FUNCTION BY 2D PLANIMETRY (MOD): Normal Ranges: EF-A4C View: 70 % (>=55%) EF-A2C View: 67 % EF-Biplane: 70 % EF-Visual: 65 % LV EF Reported: 65 % LV DIASTOLIC FUNCTION: Normal Ranges: MV Peak E: 0.91 m/s (0.7-1.2 m/s) MV Peak A: 0.68 m/s (0.42-0.7 m/s) E/A Ratio: 1.33 (1.0-2.2) MV e' 0.128 m/s (>8.0) MV lateral e' 0.17 m/s MV medial e' 0.09 m/s E/e' Ratio: 7.06 (<8.0) MITRAL VALVE: Normal Ranges: MV Vmax: 0.80 m/s (<=1.3m/s) MV peak P.5 mmHg (<5mmHg) MV mean P.0 mmHg (<48mmHg) AORTIC VALVE: Normal Ranges: AoV Vmax: 1.51 m/s (<=1.7m/s) AoV Peak P.1 mmHg (<20mmHg) AoV Mean P.0 mmHg (1.7-11.5mmHg) LVOT Max Edwin: 0.93 m/s (<=1.1m/s) AoV VTI: 28.10 cm (18-25cm) LVOT VTI: 18.80 cm LVOT Diameter: 2.40 cm (1.8-2.4cm) AoV Area, VTI: 3.03 cm2 (2.5-5.5cm2) AoV Area,Vmax: 2.79 cm2 (2.5-4.5cm2) AoV Dimensionless Index: 0.67 PULMONIC VALVE: Normal Ranges: PV Max Edwin: 0.6 m/s (0.6-0.9m/s) PV Max P.2 mmHg [id number] Tasneem Givens MD Electronically signed on 08/03/2024 at 5:31:51 PM Final Procedure Note Radiology, Radiologist, - 08/03/[address], [address] [facility], [place] [address] TRANSTHORACIC ECHOCARDIOGRAM REPORT Patient Name: RAVINDER HARDY Reading Physician: [id number] Fay Study Date: 08/03/2024 Ordering Provider: [id number] ROBERSONMalik MRN/PID: [id number] Fellow: Nurse: Date of /Age: 12 1975 / 48 years Promotion Manager: AKILAH Gender: M Additional Staff: Height: 180.34 cm Admit Date: Weight: 90.72 kg Admission Status: BSA / BMI: 2.11 m2 / 27.89 kg/m2 Department Location: [facility] Blood Pressure: 146 /80 mmHg Study Type: TRANSTHORACIC ECHO (TTE) COMPLETE Diagnosis/ICD: Palpitations-R00.2; Ventricular prematuredepolarization-I49.3; Abnormal electrocardiogram [ECG] [EKG]-R94.31 Indication: HTN CPT Codes: Echo Complete w Full Doppler-96833 Study Detail: The following Echo studies were performed: 2D, M-Mode,Doppler and color flow. PHYSICIAN INTERPRETATION: Left Ventricle: The left ventricular systolic function is normal, with avisually estimated ejection fraction of 65%. The left ventricle was notwell visualized. The left ventricular ejection fraction could not bemeasured. There are no regional wall motion abnormalities. The leftventricular cavity size is normal. Spectral Doppler shows a normal patternof left ventricular diastolic filling. Left Atrium: The left atrium is normal in size. Right Ventricle: The right ventricle is normal in size. There is normalright ventricular global systolic function. Right Atrium: The right atrium is normal in size. Aortic Valve: The aortic valve is trileaflet. The aortic valvedimensionless index is 0.67. There is no evidence of aortic valveregurgitation. The peak instantaneous gradient of the aortic valve is 9.1mmHg. The mean gradient of the aortic valve is 5.0 mmHg. Mitral Valve: The mitral valve is normal in structure. There is noevidence of mitral valve regurgitation. Tricuspid Valve: The tricuspid valve is structurally normal. No evidenceof tricuspid regurgitation. Pulmonic Valve: The pulmonic valve is structurally normal. There is noindication of pulmonic valve regurgitation. Pericardium: No pericardial effusion noted. Aorta: The aortic root is normal. Additional Comments: Normal Echocardiogram. CONCLUSIONS: 1. Normal Echocardiogram. 2. The left ventricle was not well visualized. The left ventricularejection fraction could not be measured. 3. The left ventricular systolic function is normal, with a visuallyestimated ejection fraction of 65%. 4. There is normal right ventricular global systolic function. QUANTITATIVE DATA SUMMARY: 2D MEASUREMENTS: Normal Ranges: Ao Root d: 2.80 cm (2.0-3.7cm) LAs: 3.20 cm (2.7-4.0cm) RVIDd: 3.12 cm (0.9-3.6cm) IVSd: 0.83 cm (0.6-1.1cm) LVPWd: 0.85 cm (0.6-1.1cm) LVIDd: 4.93 cm (3.9-5.9cm) LVIDs: 2.84 cm LV Mass Index: 67.0 g/m2 LV % FS 42.4 % LV SYSTOLIC FUNCTION BY 2D PLANIMETRY (MOD): Normal Ranges: EF-A4C View: 70 % (>=55%) EF-A2C View: 67 % EF-Biplane: 70 % EF-Visual: 65 % LV EF Reported: 65 % LV DIASTOLIC FUNCTION: Normal Ranges: MV Peak E: 0.91 m/s (0.7-1.2 m/s) MV Peak A: 0.68 m/s (0.42-0.7 m/s) E/A Ratio: 1.33 (1.0-2.2) MV e' 0.128 m/s (>8.0) MV lateral e' 0.17 m/s MV medial e' 0.09 m/s E/e' Ratio: 7.06 (<8.0) MITRAL VALVE: Normal Ranges: MV Vmax: 0.80 m/s (<=1.3m/s) MV peak P.5 mmHg (<5mmHg) MV mean P.0 mmHg (<48mmHg) AORTIC VALVE: Normal Ranges: AoV Vmax: 1.51 m/s (<=1.7m/s) AoV Peak P.1 mmHg (<20mmHg) AoV Mean P.0 mmHg (1.7-11.5mmHg) LVOT Max Edwin: 0.93 m/s (<=1.1m/s) AoV VTI: 28.10 cm (18-25cm) LVOT VTI: 18.80 cm LVOT Diameter: 2.40 cm (1.8-2.4cm) AoV Area, VTI: 3.03 cm2 (2.5-5.5cm2) AoV Area,Vmax: 2.79 cm2 (2.5-4.5cm2) AoV Dimensionless Index: 0.67 PULMONIC VALVE: Normal Ranges: PV Max Edwin: 0.6 m/s (0.6-0.9m/s) PV Max P.2 mmHg [id number] Tasneem Givens MD Electronically signed on 08/03/2024 at 5:31:51 PM Final Generic External Data Provider CV ECHO PROCEDURE S Final Result documented in this encounter Visit Diagnoses Not on filedocumented in this encounter Care Teams Pilot Manager Relationship Specialty Start Date End Date Chay Lucio MD [address] [place] [address] PCP - General Family Medicine 11/02/23 Chay Lucio MD [address] [place] [address] PCP - Medical [place] [employer] 04/11/19 10/11/99 documented as of this encounter
--- OUTSIDE RECORDS SUMMARY | 2025-04-04 09:32 | XMS_ITS | Clinical Summary ---
Author Organization [facility] Address [address] [place] [address] Phone Care Team Providers Care Agricultural Extension Specialist Name Role Phone Chay Lucio MD Primary Care Provider + Allergies No known active allergies Medications EPINEPHrine 0.3 mg/0.3 mL injection syringe INJECT 1 pen INTRAMUSCULARLY into the upper leg DIRECTED once; call 911 after use 06/10/20 24 Active hydroCHLOROthi azide (HYDRODiuril) 25 mg tablet Take 1 tablet (25 mg) by mouth once daily. 12/01/19 24 Active metoprolol succinate XL (Toprol-XL) 50 mg 24 hr tablet Take 1 tablet (50 mg) by mouth once daily. Active cholecalcifero l (Vitamin D-3) 50 MCG (1999) tablet Take 1 tablet (50 mcg) by mouth once daily. Active multivitamin tablet Take 1 tablet by mouth once daily. Active magnesium oxide (Mag-Ox) 400 mg tabletIndicati ons:Palpitatio ns,Ventricular ectopic beat Take 1 tablet (400 mg) by mouth 2 times a day. 180 tablet 3 06/21/20 24 025 Active potassium chloride CR (Klor-Con M20) 20 mEq ER tabletIndicati ons:Palpitatio ns,Ventricular ectopic beat Take 1 tablet (20 mEq) by mouth 2 times a day. Do not crush or chew. 180 tablet 3 07/26/20 24 025 Active Active Problems Problem Noted Date Diagnosed Date Hypokalemia 08/08/2024 Palpitations 06/21/2024 Ventricular ectopic beat 06/21/2024 BMI 27.0-27.9,adult 06/21/2024 Never smoked tobacco 06/21/2024 White coat syndrome without diagnosis of hyperte nsion 06/21/2024 Abnormal EKG 06/21/2024 Encounters Date Type Department Care Team Description 02/15/2025 2:30 PM EDT Office Visit [address] [phone] Tsaneem Givens MD Ventricular ectopic beat (Primary Dx); White coat syndrome without diagnosis of hypertension; Palpitations; Abnormal EKG; Hypokalemia; BMI 29.0-29.9,adult; Never smoked tobacco 02/15/2025 Travel from Last 3 Months Family History Medical History Relation Name Comments Hypertension Brother Hypertension Father Hypertension Mother Relation Name Status Comments Brother Father Mother Social History Tobacco Use Types Packs/Day Years Used Date Smoking Tobacco: Never Smokeless Tobacco: Never Tobacco Cessation:Counseling Given: Not Answered Alcohol Use Standard Drinks/Week Comments Yes 0 (1 standard drink = 0.6 oz pur e alcohol) occasionally Sex and Gender Information Value Date Recorded Sex Assigned at Not on file Legal Sex Male 7:42 AM EDT Gender Identity Not on file Sexual Orientation Not on file Last Filed Vital Signs Vital Sign Reading Time Taken Comments Blood Pressure 144/90 02/15/2025 2:23 PM EDT Pulse 84 02/15/2025 2:23 PM EDT Temperature - - Respiratory Rate - - Oxygen Saturation - - Inhaled Oxygen Concentration - - Weight 94.8 kg (209 lb) 02/15/2025 2:23 PM EDT Height 177.8 cm (5' 10 ) 02/15/2025 2:23 PM EDT Body Mass Index 29.99 02/15/2025 2:23 PM EDT Plan of Treatment Upcoming Encounters Date Type Department Care Team (Late st Contact Info) Description 12/01/2025 9:20 AM EST Office Visit [address] [phone] Tasneem Givens MD [address] [facility], [facility] [address] [place] [address] Health Maintenance Due Date Last Done Comments CT Colonography 1976 Colonoscopy 1976 FIT 1976 HIV Screening 1976 Lipid Panel 1976 Sigmoidoscopy 1976 MMR Vaccines (1 of 1 - Standard series) 1977 Diabetes Screening 1994 Hepatitis C Screening 1994 Hepatitis B Vaccines (1 of 3 - 19+ 3-dose series) 1995 DTaP/Tdap/Td Vaccines (2 - Td or Tdap) 02/23/2024 02/22/2014 COVID-19 Vaccine ( season) 2024 08/19/2023, 08/15/2021, 01/22/2021, Additional history exists Colorectal Cancer Screening 10/28/2024 FIT-DNA (Cologuard) 10/28/2024 10/28/2021 Influenza Vaccine (Season Ended) 2025 08/19/2023, 08/15/2021, 08/02/2020 Yearly Adult Physical 12/31/2025 12/30/2024, 024 Zoster Vaccines (1 of 2) 2026 HIB Vaccines Aged Out No longer eligi ble based on patient's age to complete this topic HPV Vaccines Aged Out No longer eligi ble based on patient's age to complete this topic Hepatitis A Vaccines Aged Out No long er eligible based on patient's age to complete this topic IPV Vaccines Aged Out No longer eligi ble based on patient's age to complete this topic Meningococcal Vaccine Aged Out No giovani srinivasan eligible based on patient's age to complete this topic Pneumococcal Vaccine: Pediatrics and At-Risk Adult Patients Aged Out No longer eligible based on patient's age to complete this topic Rotavirus Vaccines Aged Out No longer eligible based on patient's age to complete this topic [place] [address] [place] [address] [facility] Care Teams Agricultural Extension Specialist Relationship Specialty Start Date End Date Chay Lucio MD [address] [place] [address] PCP - General Family Medicine 06/21/24
== END 2025-04-04 09:30 | disposition home or self-care (01) ==
LOC: PST 09:29
PROVIDERS: PCP Family Medicine; Visit Provider Surgery
DX: Z01.818 Encounter for other preprocedural examination (principal); Z12.11 Encounter for screening for malignant neoplasm of colon

== ENCOUNTER 2025-04-12 06:13 | Day surgery (SDC) | payer OTHER, SELFPAY ==
--- NOTE | 2025-04-12 | OP_ITS ---
OPERATION DATE: 04/12/2025 PREOPERATIVE DIAGNOSIS: Colorectal screening. POSTOPERATIVE DIAGNOSIS: 4 mm rectal polyp. PROCEDURE: Colonoscopy to cecum with cold snare polypectomy x1. SURGEON: Nguyễn Herbert M.D. ANESTHESIA: Monitored anesthesia care. ESTIMATED BLOOD LOSS: Less than 1 mL. INDICATIONS AND CONSENT: Patient is a 49-year-old male presents for colorectal screening. Indications, risks, benefits, alternatives of proceeding with colonoscopy were explained extensively to the patient, including the risks of bleeding, colon perforation or anesthetic complications. All of his questions were answered. Informed consent was obtained. PROCEDURE: Patient brought to the operating room, placed in the left lateral decubitus position. Monitored anesthesia care was provided. Rectal exam was performed which revealed no masses or blood. The scope was inserted into the anal canal. Under direct visualization was advanced. It was advanced to the cecum where cecal markings were clearly identified. Upon withdrawal of the scope, mucosal surfaces were carefully examined. There were no mass lesions or inflammatory changes. No significant diverticulosis. Within the rectum, there was noted to be a 4 mm sessile polyp that was removed with cold snare with good hemostasis. The scope was retroflexed in the anal canal. There was no significant hemorrhoidal disease. Scope was then withdrawn. Patient tolerated procedure well, was sent to recovery room in good condition. follow up surveillance colonoscopy likely in 5 years, but will depend on pathology results. CC: Chay Lucio M.D. ALLAN
--- OUTSIDE RECORDS SUMMARY | 2025-04-12 06:16 | XMS_ITS | CCD ---
Author Organization [facility] Care Team Providers Care Account Development Executive Name Role Phone PHYSICIAN, DEFAULT Unavailable Unavailable PHYSICIAN, DEFAULT Unavailable Unavailable Binta Mata Unavailable Nadeen Coburn Unavailable AXEL, DR CHAY Gtz Attending Unavailable AXEL, DR CHAY Gtz Consulting Unavailable AXEL, DR CHAY Gtz Primary Care Unavailable AXEL, DR CHAY Gtz Admitting Unavailable MD Chay Reyna Primary Care Provider [phone] DO Gucci Rashid Emergency Provider DO Gucci Rashid Attending Provider Gucci Rashid Attending Unavailable Chay Reyna Primary Care Unavailable Gucci Rashid Admitting Unavailable Gucci Rashid Attending Unavailable Chay Reyna Primary Care Unavailable Gucci Rashid Admitting Unavailable Chay Reyna MD Primary Care Provider [phone] Chay Reyna MD Unavailable Chay Reyna MD Primary Care Provider MINDA GIVENS Referring Unavailable CHAY REYNA Primary Care UnavailChay Herring MD Primary Care Provider Gucci Rashid DO Emergency Provider Gucci Rashid DO Attending Provider CHAY REYNA Attending Unavailable CHAY REYNA Attending Unavailable Nguyễn LANDIS Attending Unavailable CHAY REYNA Referring Unavailable MINDA GIVENS Attending Unavailable CHAY REYNA Primary Care Unavailjuan ramon e MINDA GIVENS Attending Unavailable MINDA GIVENS Referring Unavailable CHAY REYNA Primary Care Unavailabl e MINDA GIVENS Attending Unavailable MINDA GIVENS Referring Unavailable CHAY REYNA Primary Care Unavailabl e Allergies Allergy Classification Reported Allergen(s) Allergy Type Date of Onset Reaction(s) Facility (1 source) No Known Medication Allergies; Translations: [No Known Medication Allergies] Propensity to adverse reactions (disorder) [facility] Repository Medications Current Medications Medication Drug Class(es) Dates Sig (Normalized) Sig (Original) cholecalciferol 0.05 mg oral capsule (13 sources) Vitamin D Start: 06-03-2024 take 1 capsule by mouth once daily Cholecalciferol (Vitamin D3) 50 mcg (2,000 unit) capsule Active 50 MCG PO Daily June 02, 2024 11:00pm FreeTextSi capsule Orally Once a day; Note: Source Status: Taking; Provider: Esperanza Judd ( ) take 1 tablet by mouth once ron y cholecalciferol (Vitamin D-3) 50 MCG (1999 UT) tablet Take 1 tablet (50 mcg) by mouth once daily. Active take 1 tablet by mouth in the mo rning cholecalciferol (Vitamin D-3) 50 MCG (1999 UT) tablet Take 1 tablet by mouth in the morning. Active [id number] 0.3 ml EPINEPHrine 1 mg/ml auto-injector (13 sources) alpha-Adrenergic Agonist, beta-Adrenergic Agonist, Catecholamine Start: 09-01-2024 Epinephrine (Epip en) 0.3 mg/0.3 mL auto-injector Active 0.3 MG IM every 5 to 15 minutes as needed September 01, 2024 12:00am do not exceed 3 doses per episode Start: 06-10-2024 EPINEPHrine 0. 3 mg/0.3 mL injection syringe INJECT 1 pen INTRAMUSCULARLY into the upper leg DIRECTED once; call 911 after use 06/10/2024 Active Start: 06-09-2024 EPINEPHrine (E piPen 2-Atif) 0.3 MG/0.3ML injection syringe Indications: Allergic reaction, subsequent encounter Inject 0.3 mL (0.3 mg) as directed 1 (one) time for 1 dose Inject into upper leg. Call 911 after use. 0.3 mL 2 06/09/2024 Active End: 06-09-2024 EPINEPHrine (EpiPen 2-Atif) 0 .3 MG/0.3ML injection syringe Inject 1 Syringe as directed 1 (one) time Inject into upper leg. Call 911 after use. 06/09/2024 Discontinued (Reorder) hydroCHLOROthiazide 25 mg oral tablet (16 sources) Thiazide Diuretic Start: 12-01-2023 End: 11-30-2024 take 1 tablet by mouth once daily hydroCHLOROthiazide (HYDRODiuril) 25 mg tablet Take 1 tablet (25 mg) by mouth once daily. 12/01/2023 Active take 1 tablet by livan th every twenty-four hours hydroCHLOROthiazide 25 MG 1 tablet in th e morning Orally Once a day Active hydroCHLOROthiaz khris Active ibuprofen 200 mg oral tablet (1 source) Nonsteroidal Anti-inflammatory Drug take 2 tablets by mouth three times daily at mealtime as needed Ibuprofen 200 MG 2 tablet with food or milk as needed Orally Three times a day Active magnesium oxide 400 mg oral tablet (6 sources) Start: End: take 1 tablet by mouth twice daily magnesium oxide (Mag-Ox) 400 mg tablet Indications: Palpitations , Ventricular ectopic beat Take 1 tablet (400 mg) by mouth 2 times a day. 180 tablet 3 06/21/2024 06/21/2025 Active Multi For Him - (1 source) Multi For Him - as directed Orally Active Multivitamin (Daily Multi-Vitamin) tablet (3 sources) Start: take 1 tablet by mouth once daily Multivitamin (Daily Multi-Vitamin) tablet Active 1 TAB PO Daily June 02, 2024 11:00pm Start: 06-03-2024 take 1 tablet by liavn th once daily Multivitamin (Daily Multi-Vitamin) tablet Active 1 TAB PO Daily June 03, 2024 12:00am multivitamin tablet (5 sources) take 1 tablet by mouth once daily multivitamin tablet Take 1 tablet by mouth once daily. Active oseltamivir 75 mg oral capsule (1 source) Neuraminidase Inhibitor Start: 12-13-19 22 take 1 capsule by mouth every twelve hours Tamiflu 75 MG 1 capsule Orally Twice a day for 5 day(s) Dec, Active potassium chloride 20 meq extended release oral tablet (6 sources) Start: 09-01-20 24 take 1 tablet by mouth twice daily Potassium Chloride 20 mEq tablet extended release Active 20 MEQ PO Twice daily September 01, 2024 12:00am Start: 07-26-2024 End: 07-26-2025 take 1 tablet by mouth twice daily potassium chloride CR (Klor-Con M20) 20 mEq ER tablet Indications: Palpitations , Ventricular ectopic beat Take 1 tablet (20 mEq) by mouth 2 times a day. Do not crush or chew. 180 tablet 3 07/26/2024 07/26/2025 Active Start: 06-21-2024 End: 06-21-2025 take 1 tablet by mouth once daily potassium chloride CR (Klor-Con M20) 20 mEq ER tablet Indications: Palpitations , Ventricular ectopic beat Take 1 tablet (20 mEq) by mouth once daily. Do not crush or chew. 90 tablet 2 06/21/2024 06/21/2025 Active Vitamin D 50 MCG (1999 UT) (1 source) take 1 capsule by mo uth once daily Vitamin D 50 MCG (1999 UT) 1 capsule Orally Once a day Active Completed/Discontinued Medications Medication Drug Class(es) Dates Sig (Normalized) Sig (Original) 24 hr metoprolol succinate 50 mg extended release oral tablet (14 sources) beta-Adrenergic Spencer Start: 06-03-2024 End: 06-09-2024 take 1 tablet by mouth once daily metoprolol succinate XL (Toprol-XL) 50 MG 24 hr tablet Take 50 mg by mouth Daily 06/03/2024 06/09/2024 Discontinued (Reorder) naproxen sodium 550 mg oral tablet (2 sources) Nonsteroidal Anti-inflammatory Drug Start: 07-09-2021 take 1 tablet by mouth every twelve hours at mealtime as needed Naproxen Sodium 550 MG 1 tablet with food or milk as needed Orally every 12 hrs for 10 day(s) Jun, Not-Taking Problems Active Problems Problem Classification Problem Date Documented Date Episodic/Chronic Cardiac dysrhythmias (20 sources) Multiple premature ventricular complexes; Translations: [Ventricular premature depolarization] Onset: 06-03-2024 06-09-2024 Chronic Essential hypertension (8 sources) Benign essential hypertension; Translations: [Essential (primary) hypertension] Onset: 11-25-2023 11-25-2023 Chronic Fever of unknown origin (1 source) Fever, unspecified Episodic Fluid and electrolyte disorders (6 sources) Hypokalemia; Translations: [Hypokalemia] Onset: 08-08-2024 08-08-2024 Episodic Nutritional deficiencies (5 sources) Vitamin D deficiency; Translations: [Vitamin D deficiency, unspecified] Onset: 11-25-2023 11-25-2023 Chronic Other circulatory disease (8 sources) Labile hypertension due to being in a clinical environment; Translations: [Elevated blood-pressure reading, without diagnosis of hypertension] Onset: 06-21-2024 06-21-2024 Episodic Other ear and sense organ disorders (5 sources) Bilateral hearing loss; Translations: [Unspecified hearing loss, bilateral] Onset: 11-25-2023 11-25-2023 Chronic Other ear and sense organ disorders (1 source) Impacted cerumen, left ear Episodic Other nutritional; endocrine; and metabolic disorders (8 sources) Overweight in adulthood with body mass index of 25 or more but less than 30; Translations: [Body mass index (BMI) 28.0-28.9, adult] Onset: 06-21-2024 06-21-2024 Episodic Other nutritional; endocrine; and metabolic disorders (2 sources) Body mass index (BMI) 29.0-29.9, adult; Translations: [Body mass index (BMI) 29.0-29.9, adult] Onset: 08-08-2024 Episodic Other upper respiratory infections (5 sources) Streptococcal sore throat; Translations: [Strep pharyngitis] Episodic Otitis media and related conditions (3 sources) Otitis media; Translations: [Unspecified otitis media] Episodic Residual codes; unclassified (8 sources) Never smoked tobacco; Translations: [Other specified health status] Onset: 06-21-2024 06-21-2024 Episodic Past or Other Problems Problem Classification Problem Date Documented Date Episodic/Chronic Cardiac dysrhythmias (20 sources) Palpitations; Translations: [Palpitations] Onset: 06-03-2024 06-03-2024 Episodic Immunizations and screening for infectious disease (1 source) Contact with and (suspected) exposure to other viral communicable diseases Onset: 12-12-2021 Resolved: 12-12-2021 Episodic Influenza (1 source) Influenza due to other identified influenza virus with other respiratory manifestations Onset: 12-12-2021 Resolved: 12-12-2021 Episodic Other circulatory disease (2 sources) Elevated blood-pressure reading, without diagnosis of hypertension; Translations: [Elevated blood-pressure reading, without diagnosis of hypertension] Onset: 06-21-2024 Episodic Other connective tissue disease (1 source) Achilles tendinitis, left leg; Translations: [Achilles tendinitis of left lower extremity M76.62] Onset: 07-09-2021 Resolved: 07-09-2021 Episodic Other ear and sense organ disorders (5 sources) Tinnitus of left ear; Translations: [Tinnitus, left ear] Onset: 11-25-2023 11-25-2023 Episodic Other injuries and conditions due to external causes (2 sources) Allergic reaction; Translations: [Allergy, unspecified, subsequent encounter] 06-09-2024 Episodic Other nutritional; endocrine; and metabolic disorders (2 sources) Body mass index (BMI) 27.0-27.9, adult; Translations: [Body mass index (BMI) 27.0-27.9, adult] Onset: 08-08-2024 Episodic Other nutritional; endocrine; and metabolic disorders (2 sources) Body mass index (BMI) 28.0-28.9, adult; Translations: [Body mass index (BMI) 28.0-28.9, adult] Onset: 06-21-2024 Episodic Other screening for suspected conditions (not mental disorders or infectious disease) (17 sources) Encounter for screening for malignant neoplasm of prostate; Translations: [Electrocardiogram abnormal] Onset: 12-09-2022 08-03-2024 Episodic Residual codes; unclassified (2 sources) Other specified health status; Translations: [Other specified health status] Onset: 06-21-2024 Episodic Unclassified (1 source) Onset: 02-15-2025 02-15-2025 Results Test Name Value Interpretation Reference Range Facility Ambulatory Visit Summaryon 0 01-17-2025 Ambulatory Visit Summary Ambulatory Visit Summary RAVINDER HARDY :1975 Visit Date:01/17/2025 Ambulatory Visit Instructions Your Diagnosis Screening for malignant neoplasm of colon Your Care Team Attending Physician - SABIHA JON, Nguyễn Carbajal Primary Care Physician - AXEL JON, CHAY Referring Physician - CHAY REYNA MD This Is Your Medications List cholecalciferol (Vitamin D3 2000 intl units oral Tab) hydrochlorothiazide (hydrochlorothiazide 25 mg Tab) magnesium oxide (magnesium oxide 400 mg Tab) metoprolol (metoprolol succinate 50 mg ER Tab) multivitamin potassium chloride (potassium chloride 20 mEq ER Tab) Procedures Performed Vasectomy (04/10/2013). Discharge Vitals Heart Rate (Peripheral) 76 Respiratory Rate 16 Blood Pressure 148/100 Height 180 cm Height 71 in Weight 97.1 kg Weight 214.069 lb BMI 29.97 Medications What How Much When Instructions Unchanged cholecalciferol (Vitamin D3 2000 intl units oral Tab) 1 Capsules By Mouth Every day Unchanged hydrochlorothiazide (hydrochlorothiazide 25 mg Tab) 1 Tablets By Mouth Every day Unchanged magnesium oxide (magnesium oxide 400 mg Tab) 1 Tablets By Mouth 2 times a day Unchanged metoprolol (metoprolol succinate 50 mg ER Tab) 1 Tablets By Mouth Every day Unchanged multivitamin 1 Tablets By Mouth Every day Unchanged potassium chloride (potassium chloride 20 mEq ER Tab) 1 Tablets By Mouth 2 times a day Allergies Bee Stings (Anaphylaxis) No Known Medication Allergies Problems Ongoing - Any problem that you are currently receiving treatment for. Hypertension PVCs (premature ventricular contractions) Screening for malignant neoplasm of colon Patient Survey You may receive a survey via text or e-mail asking about your office visit. Please share your experience with us by completing your survey. We appreciate your feedback and thank you for choosing us for your care. Normal [facility] ALL BASIC METABOLIC PANELon 08-22-2024 Anion gap [Moles/Vol] 13.1 mmol/L [facility] Calcium [Mass/Vol] 10.1 mg/dL 8.5 - 10. 1 mg/dL [facility] Chloride [Moles/Vol] 105 mmol/L 98 - 10 7 mmol/L [facility] CO2 [Moles/Vol] 28.1 mmol/L 21.0 - 32.0 mmol/L [facility] Creatinine [Mass/Vol] 1.08 mg/dL 0.70 - 1.30 mg/dL [facility] GFR/1.73 sq M.predicted CKD-EPI (S/P/Bld) [Vol rate/Area] >60 >=60 mL/min/1.7 3m 2 [facility] Glucose [Mass/Vol] 82 mg/dL 74 - 106 mg/dL [facility] Potassium [Moles/Vol] 4.2 mmol/L 3.5 - 5.1 mmol/L [facility] Sodium [Moles/Vol] 142 mmol/L 136 - 145 mmol/L [facility] TBH EGFR-NON AF MALAYSIAN >60 >=60 mL/min/1.7 3m 2 [facility] Urea nitrogen [Mass/Vol] 14 mg/dL 7.0 - 18.0 mg/dL [facility] Urea nitrogen/Creatinine [Mass ratio] 13 mg/mg [facility] STRESS TEST ONLYon STRESS TEST ONLY [facility] dusky [address] [place] [address], [address] [place] [address] Exercise Stress Test Patient Name: RAVINDER HARDY Ordering Provider: [id number] JEFEARIELLEParam SPICERRENE Study Date: 08/03/2024 Reading Physician: [id number] Dominguez MD, [facility] MRN/PID: [id number] Supervising Physician: Carlene Dominguez MD, [facility] Fellow: Date of /Age: 12 1975 Fellow: years Gender: M Nurse: Beatrice Mcintosh RN Admission Status: Insulation Cupola Operator: ANA PAULA Height: 180.34 cm Technologist: Weight: 90.72 kg Additional Staff: BSA: 2.11 m2 BMI: 27.89 kg/m2 Patient Location: Study Type: STRESS TEST ONLY Diagnosis/ICD: Abnormal electrocardiogram [ECG] [EKG]-R94.31 Indication: Abnormal EKG CPT Codes: Stress Test Interpretation-90139; Stress Test Supervision-[id number] Falls Risk: Low: Patient has low risk [...] normal sinus rhythm. Stress Stage Data: + +---+-- ----+-------+ HR Sys BP Shay BP + +---+-- ----+-------+ Baseline Resting 74 132 82 + +---+-- ----+-------+ Baseline Standing 72 136 84 + +---+-- ----+-------+ Stage I 111 138 86 + +---+-- ----+-------+ Stage II 137 142 82 + +---+-- ----+-------+ Stage III 187 162 80 + +---+-- ----+-------+ Recovery ECG: Recovery ECG showed sinus tachycardia. The heart rate recovery was abnormal. + +---+------+ -------+ HR Sys BP Shay BP + +---+------+ -------+ Recovery I 187 166 82 + +---+------+ -------+ Recovery II 179 164 84 + +---+------+ -------+ Recovery III 131 148 84 + +---+------+ -------+ Recovery IV 123 128 86 + +---+------+ -------+ Recovery V 110 + +---+------+ -------+ Summary: 1. 1_no exercise-induced ischemic ST segment [...] deconditioning. 2. Adequate level of stress achieved. [id number] Bk Dominguez MD, [facility] Electronically signed on 08/04/2024 at 2:50:14 PM Final [facility] TRANSTHORACIC ECHO (TTE) COM PLETEon 08-03-2024 TRANSTHORACIC ECHO (TTE) COMPLETE [address], [place] [address] TRANSTHORACIC ECHOCARDIOGRAM REPORT Patient Name: RAVINDER HARDY Reading Physician: [id number] Minda Givens MD Study Date: 08/03/2024 Ordering Provider: [id number] MINDA GIVENS MRN/PID: [id number] Fellow: Nurse: Date of /Age: 12 1975 / 48 years Insulation Cupola Operator: AKILAH Gender: M Additional Staff: Height: 180.34 cm Admit Date: Weight: 90.72 kg Admission Status: BSA / BMI: 2.11 m2 / 27.89 kg/m2 Department Location: [facility] Blood Pressure: 146 /80 mmHg Study Type: TRANSTHORACIC ECHO (TTE) COMPLETE Diagnosis/ICD: Palpitations-R00.2; Ventricular premature depolarization-I49.3; Abnormal electrocardiogram [ECG] [EKG]-R94.31 Indication: HTN CPT Codes: Echo Complete w Full Doppler-20843 Study Detail: The following Echo studies were performed: 2D, M-Mode, Doppler and color flow. PHYSICIAN INTERPRETATION: Left Ventricle: The left ventricular systolic function is normal, with a visually estimated ejection fraction of 65%. There are no regional wall motion abnormalities. [...] CONCLUSIONS: 1. Normal Echocardiogram. 2. The left ventricular systolic function is normal, with a visually estimated ejection fraction of 65%. 3. There is normal right ventricular global systolic [...] 0.6 m/s (0.6-0.9m/s) PV Max P.2 mmHg [id number] Minda Givens MD Electronically signed on 08/03/2024 at 5:31:51 PM Final (Updated) Normal [facility] Heart Transthoracicon Aortic Valve Area by Continuity of Peak Velocity 2.79 cm2 [facility] Work Phone: Aortic Valve Area by Continuity of VTI 3.03 cm2 [facility] Work Phone: AV mn grad 5 mmHg [facility] Work Phone: AV pk grad 9.1 mmHg [facility] Work Phone: AV pk edwin 1.51 m/s [facility] Work Phone: LV A4C EF 70.1 [facility] Work Phone: LV Biplane EF 70 % [facility] Work Phone: LV EF 65 % [facility] Work Phone: LVIDd 4.93 cm [facility] Work Phone: LVOT diam 2.4 cm [facility] Work Phone: MV avg E/e' ratio 5.4 [facility] Work Phone: MV E/A ratio 1.33 [facility] Work Phone: [address], [place] [address] TRANSTHORACIC ECHOCARDIOGRAM REPORT Patient Name: RAVINDER HARDY Reading Physician: [id number] Givens MD Study Date: 08/03/2024 Ordering Provider: Blanca GIVENS MRN/PID: [id number] Fellow: Nurse: Date of /Age: 12 1975 / 48 years Insulation Cupola Operator: AKILAH Gender: M Additional Staff: Height: 180.34 cm Admit Date: Weight: 90.72 kg Admission Status: BSA / BMI: 2.11 m2 / 27.89 kg/m2 Department Location: [facility] Blood Pressure: 146 /80 mmHg Study Type: TRANSTHORACIC ECHO (TTE) COMPLETE Diagnosis/ICD: Palpitations-R00.2; Ventricular premature depolarization-I49.3; Abnormal electrocardiogram [ECG] [EKG]-R94.31 Indication: HTN CPT Codes: Echo Complete w Full Doppler-63583 Study Detail: The following Echo studies were [...] 0.6 m/s (0.6-0.9m/s) PV Max P.2 mmHg [id number] Minda Givens MD Electronically signed on 08/03/2024 at 5:31:51 PM Final Minda Newby MD - 08/03/[address], [address] [place] [address] TRANSTHORACIC ECHOCARDIOGRAM REPORT Patient Name: RAVINDER POOLSHIRLEY [place] Physician: [id number] Minda Givens MD Study Date: 08/03/2024 Ordering Provider: [id number] MINDA LOW MRN/PID: [id number] Fellow: Nurse: Date of /Age: 12 1975 / 48 years Insulation Cupola Operator: AKILAH Gender: M Additional Staff: Height: 180.34 cm Admit Date: Weight: 90.72 kg Admission Status: BSA / BMI: 2.11 m2 / 27.89 kg/m2 Department Location: [facility] Blood Pressure: 146 /80 mmHg Study Type: TRANSTHORACIC ECHO (TTE) COMPLETE Diagnosis/ICD: Palpitations-R00.2; Ventricular premature depolarization-I49.3; Abnormal electrocardiogram [ECG] [EKG]-R94.31 Indication: HTN CPT Codes: Echo Complete w Full Doppler-14884 Study Detail: The following Echo studies were [...] 0.6 m/s (0.6-0.9m/s) PV Max P.2 mmHg [id number] Minda Givens MD Electronically signed on 08/03/2024 at 5:31:51 PM Final [facility] Work Phone: [facility] Work Phone: ALL BASIC METABOLIC PANELon 07-21-2024 Anion gap [Moles/Vol] 10.8 mmol/L [facility] Calcium [Mass/Vol] 9.6 mg/dL 8.5 - 10. 1 mg/dL [facility] Chloride [Moles/Vol] 102 mmol/L 98 - 10 7 mmol/L [facility] CO2 [Moles/Vol] 31.6 mmol/L 21.0 - 32.0 mmol/L [facility] Creatinine [Mass/Vol] 1.16 mg/dL 0.70 - 1.30 mg/dL [facility] GFR/1.73 sq M.predicted CKD-EPI (S/P/Bld) [Vol rate/Area] >60 >=60 mL/min/1.7 3m 2 [facility] Glucose [Mass/Vol] 92 mg/dL 74 - 106 mg/dL [facility] Interpretation and review of laboratory results Abnormal [facility] Potassium [Moles/Vol] 3.4 mmol/L Low 3.5 - 5.1 mmol/L [facility] Sodium [Moles/Vol] 141 mmol/L 136 - 145 mmol/L [facility] TBH EGFR-NON AF MALAYSIAN >60 >=60 mL/min/1.7 3m 2 [facility] Urea nitrogen [Mass/Vol] 14.0 mg/dL 7.0 - 18.0 mg/dL [facility] Urea nitrogen/Creatinine [Mass ratio] 12.1 mg/mg [facility] ECG 12 Leadon 06-21-2024 Sinus tachycardia wi th nonspecific ST-T changes [facility] Work Phone: Activated partial thrombopla stin time (aPTT) in platelet poor plasma by coagulation aOrdered By: Gucci Rashid on 06-03-2024 aPTT Coag (PPP) [Time] 30.6 s 25.1-36.5 [facility] Comment on above: A hematocrit value g reater than 55% may lead to inaccurate results in coagulation testing. Patients having hematocrit values >55% require a special collection tube for coagulation studies. Please contact the laboratory at [phone] for redraw instructions. Alanine aminotransferase [En zymatic activity/volume] in Serum or PlasmaOrdered By: Gucci Rashid on 06-03-2024 ALT [Catalytic activity/Vol] 54 U/L [address] [facility] Comment on above: Performed By: #### M G, PT, HS TROP, PTT, CMP, TSH3, CK, CBC, T4F #### [facility] [address] ALT [Catalytic activity/Vol] Alanine aminotransferase [Enzymatic activity/volume] in Serum or Plasma [address] Albumin [Mass/volume] in Ser um or Plasma by Bromocresol green (BCG) dye binding methoOrdered By: Gucci Rashid on 06-03-2024 Albumin BCG dye [Mass/Vol] 4.4 g/dL 3.5-5.7 [facility] Albumin BCG dye [Mass/Vol] Albumin [Mass/volume] in Serum or Plasma by Bromocresol green (BCG) dye binding metho 3.5-5.7 [facility] Alkaline phosphatase [Enzyma tic activity/volume] in Serum or PlasmaOrdered By: Gucci Rashid on 06-03-2024 ALP [Catalytic activity/Vol] 74 U/L Normal 34-104 [facility] Comment on above: Performed By: #### M G, PT, HS TROP, PTT, CMP, TSH3, CK, CBC, T4F #### [facility] [address] [place] [address] [facility] ALP [Catalytic activity/Vol] Alkaline phosphatase [Enzymatic activity/volume] in Serum or Plasma 34-104 [facility] Appearance of UrineOrdered B y: Gucci Rashid on 06-03-2024 Appearance (U) Urine appearance Clear [facility] Aspartate aminotransferase [ Enzymatic activity/volume] in Serum or PlasmaOrdered By: Gucci Ocampozi on 06-03-2024 AST [Catalytic activity/Vol] 32 U/L Normal [facility] Comment on above: Performed By: #### M G, PT, HS TROP, PTT, CMP, TSH3, CK, CBC, T4F #### [facility] [address] [place] [address] AST [Catalytic activity/Vol] Aspartate aminotransferase [Enzymatic activity/volume] in Serum or Plasma [facility] Automated basophil %Ordered By: Gucci Rashid on 06-03-2024 Basophils/100 WBC (Bld) 0.5 % Normal . [facility] Comment on above: Performed By: #### M G, PT, HS TROP, PTT, CMP, TSH3, CK, CBC, T4F #### [facility] [address] [place] [address] Automated basophil countOrde red By: Gucci Rashid on 06-03-2024 Basophils (Bld) [#/Vol] 0.0 10*3/uL Normal 0.0-0.2 [facility] Comment on above: Result Comment: PERF ORMED BY: [place] [address] PATHOLOGIST OLERICULTURE TEACHER NEELA BRAGG M.D. Performed By: #### M G, PT, HS TROP, PTT, CMP, TSH3, CK, CBC, T4F #### [address] Automated blood monocyte cou ntOrdered By: Gucci Rashid on 06-03-2024 Monocytes (Bld) [#/Vol] 0.7 10*3/uL Normal 0.0-0.8 [facility] Comment on above: Performed By: #### M G, PT, HS TROP, PTT, CMP, TSH3, CK, CBC, T4F #### [address] Automated eosinophil %Ordere d By: Gucci Rashid on 06-03-2024 Eosinophils/100 WBC (Bld) 0.8 % Normal . [facility] Comment on above: Performed By: #### M G, PT, HS TROP, PTT, CMP, TSH3, CK, CBC, T4F #### [address] Automated eosinophil countOr dered By: Gucci Rashid on 06-03-2024 Eosinophils (Bld) [#/Vol] 0.1 10*3/uL Normal 0.0-0.45 [facility] Comment on above: Performed By: #### M G, PT, HS TROP, PTT, CMP, TSH3, CK, CBC, T4F #### [address] Automated monocyte %Ordered By: Gucci Rashid on 06-03-2024 Monocytes/100 WBC (Bld) 10.0 % Normal . [facility] Comment on above: Performed By: #### M G, PT, HS TROP, PTT, CMP, TSH3, CK, CBC, T4F #### [address] Automated neutrophil %Ordere d By: Gucci Rashid on 06-03-2024 Neutrophils/100 WBC (Bld) 67.1 % Normal . [facility] Comment on above: Performed By: #### M G, PT, HS TROP, PTT, CMP, TSH3, CK, CBC, T4F #### [address] BNP ser/plasOrdered By: Baron Rashid on 06-03-2024 Natriuretic peptide B (Bld) [Mass/Vol] 11.0 pg/mL Normal 5-100 [facility] Comment on above: Result Comment: PERF ORMED BY: [place] [address] PATHOLOGIST OLERICULTURE TEACHER NEELA BRAGG M.D. Performed By: #### B SCIENTIFIC INFORMATICS PROJECT LEADER #### [address] Basophils Auto (Bld) [#/Vol] Ordered By: Gucci Rashid on 06-03-2024 Basophils (Bld) [#/Vol] Automated basophil count 0.0-0.2 [facility] Basophils/100 WBC Auto (Bld) Ordered By: Gucci Rashid on 06-03-2024 Basophils/100 WBC (Bld) Automated basophil % . [facility] Bilirubin Test strip Ql (U)O rdered By: Gucci Rashid on 06-03-2024 Bilirubin Ql (U) Negative Negative [facility] Bilirubin Ql (U) Bilirubin.total [Presence] in Urine by Test strip Negative [facility] Bilirubin.total [Mass/volume ] in Serum or PlasmaOrdered By: Gucci Rashid on 06-03-2024 Bilirubin [Mass/Vol] 0.6 mg/dL Normal 0.3-1.0 [facility] Comment on above: Performed By: #### M G, PT, HS TROP, PTT, CMP, TSH3, CK, CBC, T4F #### [facility] [address] Bilirubin [Mass/Vol] Bilirubin.total [Mass/volume] in Serum or Plasma 0.3-1.0 [facility] Calcium [Mass/volume] in Ser um or PlasmaOrdered By: Gucci Rashid on 06-03-2024 Calcium [Mass/Vol] 9.6 mg/dL Normal 8.6-10.3 [facility] Comment on above: Performed By: #### M G, PT, HS TROP, PTT, CMP, TSH3, CK, CBC, T4F #### [facility] [address] Calcium [Mass/Vol] Calcium [Mass/volume ] in Serum or Plasma 8.6-10.3 [facility] Carbon dioxide, total [Moles /volume] in Serum or PlasmaOrdered By: Gucci Rashid on 06-03-2024 CO2 [Moles/Vol] 30.4 mmol/L Normal 21.0-31.0 [facility] Comment on above: Performed By: #### M G, PT, HS TROP, PTT, CMP, TSH3, CK, CBC, T4F #### [address] CO2 [Moles/Vol] Carbon dioxide, tota l [Moles/volume] in Serum or Plasma 21.0-31.0 [facility] Chloride [Moles/volume] in S odessa or PlasmaOrdered By: Gucci Rashid on 06-03-2024 Chloride [Moles/Vol] 101 mmol/L Normal 98-107 [facility] Comment on above: Performed By: #### M G, PT, HS TROP, PTT, CMP, TSH3, CK, CBC, T4F #### [address] Chloride [Moles/Vol] Chloride [Moles/vol ume] in Serum or Plasma 98-107 [facility] Color Auto (U)Ordered By: Fabrizio Rashid on 06-03-2024 Color (U) Color of Urine by Auto Yellow Fi [facility] Color of Urine by AutoOrdere d By: Gucci Rashid on 06-03-2024 Color (U) Light-yellow Normal Yellow [facility] Comment on above: Order Comment: Name Collection Type:: Voided Performed By: #### U A #### [address] Complete Blood Count Auto Di ffon 06-03-2024 Mean Corpuscular HGB Conc 34.6 g/dL Normal 32.5-35.6 [facility] Comment on above: Performed By: #### M G, PT, HS TROP, PTT, CMP, TSH3, CK, CBC, T4F #### [place] [address] [place] Monocytes/100 WBC (Bld) 16.10 % Normal 0.00-20.00 [facility] Comment on above: Performed By: #### M G, PT, HS TROP, PTT, CMP, TSH3, CK, CBC, T4F #### [address] NRBC% 0.1 /100{WBC} Normal 0-0.5 [facility] Comment on above: Performed By: #### M G, PT, HS TROP, PTT, CMP, TSH3, CK, CBC, T4F #### [facility] [address] Comprehensive Metabolic Pane giovani 06-03-2024 Albumin [Mass/Vol] 4.4 g/dL Normal 3.5-5.7 [facility] Comment on above: Performed By: #### M G, PT, HS TROP, PTT, CMP, TSH3, CK, CBC, T4F #### [facility] [address] Creatinine Clr Calc Pharmacy 88.42 Normal [facility] Comment on above: Performed By: #### M G, PT, HS TROP, PTT, CMP, TSH3, CK, CBC, T4F #### [place] [address] [place] GFR/1.73 sq M.predicted MDRD (S/P/Bld) [Vol rate/Area] mL/min/{1.73_m2} Normal [facility] Comment on above: Performed By: #### M G, PT, HS TROP, PTT, CMP, TSH3, CK, CBC, T4F #### [address] Creatine kinase [Enzymatic a ctivity/volume] in Serum or PlasmaOrdered By: Gucci Rashid on 06-03-2024 CK [Catalytic activity/Vol] 116 U/L Normal [facility] Comment on above: Performed By: #### M G, PT, HS TROP, PTT, CMP, TSH3, CK, CBC, T4F #### [facility] [address] [place] [id number] [facility] CK [Catalytic activity/Vol] Creatine kinase [Enzymatic activity/volume] in Serum or Plasma [facility] Creatinine [Mass/volume] in Serum or PlasmaOrdered By: Gucci Rashid on 06-03-2024 Creatinine [Mass/Vol] 1.10 mg/dL Normal 0.70-1.30 [facility] Comment on above: Performed By: #### M G, PT, HS TROP, PTT, CMP, TSH3, CK, CBC, T4F #### [facility] [address] [place] [address] [place] Creatinine [Mass/Vol] Creatinine [Mass/v olume] in Serum or Plasma 0.70-1.30 [facility] ECG 12 lead ECGon 06-03-2024 ECG 12 lead ECG [facility] [address] [place] [address] [place] [address] Electrocardiograph Report Signed Patient: Ravinder Hardy MR#: [id number] : 1975 Acct:[id number] Age/Sex: 48 / M ADM Date: 06/03/24 Loc: ER Room: Type: [facility] ER Attending Dr: Ordering Provider: Gucci Rashid [...] ECGs available Confirmed by Gucci Rashid DO ([id number]) on 06/03/2024 6:41:42 PM Referred By: Electronically Signed By: Gucci Rashid DO Transcribed By: MUS Signed By Gucci Rashid DO 4 1841 Normal [facility] Eosinophils Auto (Bld) [#/Vo l]Ordered By: Gucci Rashid on 06-03-2024 Eosinophils (Bld) [#/Vol] Automated eosinophil count 0.0-0.45 [facility] Eosinophils/100 WBC Auto (Bl d)Ordered By: Gucci Rashid on 06-03-2024 Eosinophils/100 WBC (Bld) Automated eosinophil % . [facility] Erythrocyte distribution wid th Auto (RBC) [Ratio]Ordered By: Gucci Rashid on 06-03-2024 Erythrocyte distribution width (RBC) [Ratio] Erythrocyte distribution width [Ratio] by Automated count 12.0-14.8 [facility] Erythrocyte distribution wid th [Ratio] by Automated countOrdered By: Gucci Rashid on 06-03-2024 Erythrocyte distribution width (RBC) [Ratio] 12.5 % Normal 12.0-14.8 [facility] Comment on above: Performed By: #### M G, PT, HS TROP, PTT, CMP, TSH3, CK, CBC, T4F #### [facility] [address] Erythrocytes [#/volume] in B lood by Automated countOrdered By: Gucci Rashid on 06-03-2024 RBC (Bld) [#/Vol] 5.44 10*6/uL Normal 3.90-5.60 [facility] Comment on above: Performed By: #### M G, PT, HS TROP, PTT, CMP, TSH3, CK, CBC, T4F #### [facility] [address] Globulin Calc (S) [Mass/Vol] Ordered By: Gucci Rashid on 06-03-2024 Globulin (S) [Mass/Vol] Serum globulin measurement by calculation (mass/volume) [facility] Glucose [Mass/volume] in Ser um or PlasmaOrdered By: Gucci Rashid on 06-03-2024 Glucose [Mass/Vol] 101 mg/dL High 70-100 [facility] Comment on above: ADA recommended refe rence rangeRandom Glucose Reference Range is dependent on time and content of last meal. Glucose of more than 200 mg/dL in a nonstressed, ambulatory subject supports the diagnosis of Diabetes Mellitus. Result Comment: [place] Glucose Reference Range is dependent on time and content of last meal. Glucose of more than 200 mg/dL in a nonstressed, ambulatory subject supports the diagnosis of Diabetes Mellitus. ADA recommended reference range Performed By: #### M G, PT, HS TROP, PTT, CMP, TSH3, CK, CBC, T4F #### [facility] [address] Glucose [Mass/Vol] Glucose [Mass/volume ] in Serum or Plasma High 70-100 [facility] Comment on above: ADA recommended refe rence rangeRandom Glucose Reference Range is dependent on time and content of last meal. Glucose of more than 200 mg/dL in a nonstressed, ambulatory subject supports the diagnosis of Diabetes Mellitus. Glucose [Mass/volume] in Uri ne by Test stripOrdered By: Gucci Rashid on 06-03-2024 Glucose Test strip (U) [Mass/Vol] Normal mg/dL Normal [facility] Glucose Test strip (U) [Mass/Vol] Glucose [Mass/volume] in Urine by Test strip Normal [facility] Hematocrit Auto (Bld) [Volum e fraction]Ordered By: Gucci Rashid on 06-03-2024 Hematocrit (Bld) [Volume fraction] Hematocrit [Volume Fraction] of Blood by Automated count 38.8-50.0 [facility] Hematocrit [Volume Fraction] of Blood by Automated countOrdered By: Gucci Rashid on 06-03-2024 Hematocrit (Bld) [Volume fraction] 47.0 % Normal 38.8-50.0 [facility] Comment on above: Performed By: #### M G, PT, HS TROP, PTT, CMP, TSH3, CK, CBC, T4F #### [facility] [address] Hemoglobin Test strip Ql (U) Ordered By: Gucci Rashid on 06-03-2024 Hemoglobin Ql (U) Negative Negative [facility] Hemoglobin Ql (U) Hemoglobin [Presence ] in Urine by Test strip Negative [facility] Hemoglobin [Mass/volume] in BloodOrdered By: Gucci Rashid on 06-03-2024 Hemoglobin (Bld) [Mass/Vol] 16.3 g/dL Normal 13.0-17.0 [facility] Comment on above: Performed By: #### M G, PT, HS TROP, PTT, CMP, TSH3, CK, CBC, T4F #### [facility] [address] Hemoglobin (Bld) [Mass/Vol] Hemoglobin [Mass/volume] in Blood 13.0-17.0 [facility] INR in Platelet poor plasma by Coagulation assayOrdered By: Gucci Rashid on 06-03-2024 INR Coag (PPP) [Relative time] 1.0 {INR} Normal [facility] Comment on above: INR Therapeutic Rang e [...] PTT, CMP, TSH3, CK, CBC, T4F #### [facility] [address] INR Coag (PPP) [Relative time] INR in Platelet poor plasma by Coagulation assay [facility] Comment on above: INR Therapeutic Rang e A) Pre- and Peroperative OAT started two weeks before surgery. NOT HIP SURGERY: 1.5 - 2.5 HIP SURGERY: 2 - 3B) Primary and secondary prevention of venous THROMBOSIS: 2 - 3C) Active venous thrombosis, pulmonary embolismand prevention of recurrent venous thrombosis: 2 - 3D) Prevention of arterial thromboembolismincluding patients with mechanical heart valves: 3 - 4.5 Ketones Test strip Ql (U)Ord ered By: Gucci Rashid on 06-03-2024 Ketones Ql (U) Ketones [Presence] i n Urine by Test strip Negative [facility] Ketones [Presence] in Urine by Test stripOrdered By: Gucci Rashid on 06-03-2024 Ketones Ql (U) Negative Normal Negative [facility] Comment on above: Order Comment: Name Collection Type:: Voided Performed By: #### U A #### [facility] [address] [place] [address] [place] Leukocyte esterase [Presence ] in Urine by Test stripOrdered By: Gucci Rashid on 06-03-2024 Leukocyte esterase Test strip Ql (U) Negative Normal Negative [facility] Comment on above: Order Comment: Name Collection Type:: Voided Performed By: #### U A #### [facility] [address] Leukocyte esterase Test strip Ql (U) Leukocyte esterase [Presence] in Urine by Test strip Negative [facility] Leukocytes [#/volume] correc christiano for nucleated erythrocytes in Blood by Automated counOrdered By: Gucci Rashid on 06-03-2024 WBC corrected for nucl RBC Auto (Bld) [#/Vol] 7.3 10*3/uL 4.1-10.5 [facility] WBC corrected for nucl RBC Auto (Bld) [#/Vol] Leukocytes [#/volume] corrected for nucleated erythrocytes in Blood by Automated coun 4.1-10.5 [facility] Leukocytes [#/volume] in Blo od by Automated countOrdered By: Gucci Rashid on 06-03-2024 WBC (Bld) [#/Vol] 7.3 10*3/uL Normal 4.1-10.5 [facility] Comment on above: Performed By: #### M G, PT, HS TROP, PTT, CMP, TSH3, CK, CBC, T4F #### [facility] [address] [place] [address] [place] Lymphocytes Auto (Bld) [#/Vo l]Ordered By: Gucci Rashid on 06-03-2024 Lymphocytes (Bld) [#/Vol] Lymphocytes [#/volume] in Blood by Automated count 1.00-4.8 [facility] Lymphocytes [#/volume] in Bl ood by Automated countOrdered By: Gucci Rashid on 06-03-2024 Lymphocytes (Bld) [#/Vol] 1.6 10*3/uL Normal 1.00-4.8 [facility] Comment on above: Performed By: #### M G, PT, HS TROP, PTT, CMP, TSH3, CK, CBC, T4F #### [facility] [address] Lymphocytes/100 WBC Auto (Bl d)Ordered By: Gucci Rsahid on 06-03-2024 Lymphocytes/100 WBC (Bld) Lymphocytes/100 leukocytes in Blood by Automated count . [facility] Lymphocytes/100 leukocytes i n Blood by Automated countOrdered By: Gucci Rashid on 06-03-2024 Lymphocytes/100 WBC (Bld) 21.6 % Normal . [facility] Comment on above: Performed By: #### M G, PT, HS TROP, PTT, CMP, TSH3, CK, CBC, T4F #### [facility] [address] MCH Auto (RBC) [Entitic mass ]Ordered By: Gucci Rashid on 06-03-2024 MCH (RBC) [Entitic mass] MCH [Entitic mass] by Automated count 27.5-35.2 [facility] MCH [Entitic mass] by Automa christiano countOrdered By: Gucci Rashid on 06-03-2024 MCH (RBC) [Entitic mass] 29.9 pg Normal 27.5-35.2 [facility] Comment on above: Performed By: #### M G, PT, HS TROP, PTT, CMP, TSH3, CK, CBC, T4F #### [facility] [address] MCHC Auto (RBC) [Mass/Vol]Or dered By: Gucci Rashid on 06-03-2024 MCHC (RBC) [Mass/Vol] 34.6 g/dL 32.5-35.6 [facility] MCHC (RBC) [Mass/Vol] MCHC [Mass/volume] by Automated count 32.5-35.6 [facility] MCV Auto (RBC) [Entitic vol] Ordered By: Gucci Rashid on 06-03-2024 MCV (RBC) [Entitic vol] MCV [Entitic volume] by Automated count 83.5-101 [facility] MCV [Entitic volume] by Auto mated countOrdered By: Gucci Rashid on 06-03-2024 MCV (RBC) [Entitic vol] 86.4 fL Normal 83.5-101 [facility] Comment on above: Performed By: #### M G, PT, HS TROP, PTT, CMP, TSH3, CK, CBC, T4F #### [facility] [address] [place] [id number] [facility] Magnesium [Mass/volume] in S odessa or PlasmaOrdered By: Gucci Rashid on 06-03-2024 Magnesium [Mass/Vol] 1.9 mg/dL Normal 1.9-2.7 [facility] Comment on above: Performed By: #### U A #### [facility] [address] [place] [id number] [facility] Magnesium [Mass/Vol] Magnesium [Mass/vol ume] in Serum or Plasma 1.9-2.7 [facility] Monocyte distribution width [Entitic volume] in Blood by AutomatedOrdered By: Gucci Rashid on 06-03-2024 Monocyte distribution width Auto (Bld) [Entitic vol] 16.10 % 0.00-20.00 [facility] Monocyte distribution width Auto (Bld) [Entitic vol] Monocyte distribution width [Entitic volume] in Blood by Automated 0.00-20.00 [facility] Monocytes Auto (Bld) [#/Vol] Ordered By: Gucci Rashid on 06-03-2024 Monocytes (Bld) [#/Vol] Automated blood monocyte count 0.0-0.8 [facility] Monocytes/100 WBC Auto (Bld) Ordered By: Gucci Rashid on 06-03-2024 Monocytes/100 WBC (Bld) Automated monocyte % . [facility] Natriuretic peptide B [Mass/ Vol]Ordered By: Gucci Rashid on 06-03-2024 Natriuretic peptide B (Bld) [Mass/Vol] BNP ser/plas 5-100 [facility] Neutrophils Auto (Bld) [#/Vo l]Ordered By: Gucci Rashid on 06-03-2024 Neutrophils (Bld) [#/Vol] Neutrophils [#/volume] in Blood by Automated count 1.8-7.7 [facility] Neutrophils [#/volume] in Bl ood by Automated countOrdered By: Gucci Rashid on 06-03-2024 Neutrophils (Bld) [#/Vol] 4.9 10*3/uL Normal 1.8-7.7 [facility] Comment on above: Performed By: #### M G, PT, HS TROP, PTT, CMP, TSH3, CK, CBC, T4F #### [facility] [address] [place] [address] [place] Neutrophils/100 WBC Auto (Bl d)Ordered By: Gucci Rashid on 06-03-2024 Neutrophils/100 WBC (Bld) Automated neutrophil % . [facility] Nitrite Test strip Ql (U)Ord ered By: Gucci Rashid on 06-03-2024 Nitrite Ql (U) Negative Negative [facility] Nitrite Ql (U) Nitrite [Presence] i n Urine by Test strip Negative [facility] No Panel InformationOrdered By: Gucci Rashid on 06-03-2024 Estimated GFR (CKD-EPI) > 60.0 mL/Min [facility] Creatinine Clearance (Chem 88.42 [facility] Nucleated erythrocytes [Pres ence] in Blood by Automated countOrdered By: Gucci Rashid on 06-03-2024 Nucleated RBC Auto Ql (Bld) 0.1 /100{WBC} 0-0.5 [facility] Nucleated RBC Auto Ql (Bld) Nucleated erythrocytes [Presence] in Blood by Automated count 0-0.5 [facility] Partial Thromboplastin Timeo n 06-03-2024 aPTT Coag (Bld) [Time] 30.6 s Normal 25.1-36.5 [facility] Comment on above: Result Comment: A he matocrit value greater than 55% may lead to inaccurate results in coagulation testing. Patients having hematocrit values >55% require a special collection tube for coagulation studies. Please contact the laboratory at [phone] for redraw instructions. PERFORMED BY: [address] [place] [address] PATHOLOGIST OLERICULTURE TEACHER NEELA BRAGG M.D. Performed By: #### M G, PT, HS TROP, PTT, CMP, TSH3, CK, CBC, T4F #### [facility] [address] [place] [id number] [facility] Platelet mean volume Auto (B ld) [Entitic vol]Ordered By: Gucci Rashid on 06-03-2024 Platelet mean volume (Bld) [Entitic vol] Platelet mean volume [Entitic volume] in Blood by Automated count 6.6-10.1 [facility] Platelet mean volume [Entiti c volume] in Blood by Automated countOrdered By: Gucci Rashid on 06-03-2024 Platelet mean volume (Bld) [Entitic vol] 8.8 fL Normal 6.6-10.1 [facility] Comment on above: Performed By: #### M G, PT, HS TROP, PTT, CMP, TSH3, CK, CBC, T4F #### [facility] [address] [place] [address] [place] Platelets Auto (Bld) [#/Vol] Ordered By: Gucci Rashid on 06-03-2024 Platelets (Bld) [#/Vol] Platelets [#/volume] in Blood by Automated count 150-450 [facility] Platelets [#/volume] in Bloo d by Automated countOrdered By: Gucci Rashid on 06-03-2024 Platelets (Bld) [#/Vol] 243 10*3/uL Normal 150-450 [facility] Comment on above: Performed By: #### M G, PT, HS TROP, PTT, CMP, TSH3, CK, CBC, T4F #### [facility] [address] [place] [address] [place] Potassium [Moles/volume] in Serum or PlasmaOrdered By: Gucci Rashid on 06-03-2024 Potassium [Moles/Vol] 3.3 mmol/L Low 3.5-5.1 [facility] Comment on above: Performed By: #### M G, PT, HS TROP, PTT, CMP, TSH3, CK, CBC, T4F #### [facility] [address] Potassium [Moles/Vol] Potassium [Moles/v olume] in Serum or Plasma Low 3.5-5.1 [facility] Protein Test strip (U) [Mass /Vol]Ordered By: Gucci Rashid on 06-03-2024 Protein (U) [Mass/Vol] Negative Negative [facility] Protein (U) [Mass/Vol] Protein [Mass/vol ume] in Urine by Test strip Negative [facility] Protein [Mass/volume] in Ser um or PlasmaOrdered By: Gucci Rashid on 06-03-2024 Protein [Mass/Vol] 7.8 g/dL Normal 6.4-8.9 [facility] Comment on above: Performed By: #### M G, PT, HS TROP, PTT, CMP, TSH3, CK, CBC, T4F #### [facility] [address] [place] [address] [facility] Protein [Mass/Vol] Protein [Mass/volume ] in Serum or Plasma 6.4-8.9 [facility] Prothrombin time (PT)Ordered By: Gucci Rashid on 06-03-2024 PT Coag (PPP) [Time] 11.9 s Normal 9.0-12.9 [facility] Comment on above: A hematocrit value g reater than 55% may lead to inaccurate results in coagulation testing. Patients having hematocrit values >55% require a special collection tube for coagulation studies. Please contact the laboratory at [phone] for redraw instructions. Result Comment: A he matocrit value greater than 55% may lead to inaccurate results in coagulation testing. Patients having hematocrit values >55% require a special collection tube for coagulation studies. Please contact the laboratory at [phone] for redraw instructions. Performed By: #### M G, PT, HS TROP, PTT, CMP, TSH3, CK, CBC, T4F #### [facility] [address] [place] [address] [facility] PT Coag (PPP) [Time] Prothrombin time (PT) 9.0- 12.9 [facility] Comment on above: A hematocrit value g reater than 55% may lead to inaccurate results in coagulation testing. Patients having hematocrit values >55% require a special collection tube for coagulation studies. Please contact the laboratory at [phone] for redraw instructions. RBC Auto (Bld) [#/Vol]Ordere d By: Gucci Rashid on 06-03-2024 RBC (Bld) [#/Vol] Erythrocytes [#/volu me] in Blood by Automated count 3.90-5.60 [facility] Serum globulin measurement b y calculation (mass/volume)Ordered By: Gucci Rashid on 06-03-2024 Globulin (S) [Mass/Vol] 3.4 g/dL Normal [facility] Comment on above: Performed By: #### M G, PT, HS TROP, PTT, CMP, TSH3, CK, CBC, T4F #### [facility] [address] Serum or plasma albumin/glob ulin mass ratioOrdered By: Gucci Rashid on 06-03-2024 Albumin/Globulin [Mass ratio] 1.3 {ratio} [facility] Comment on above: Performed By: #### M G, PT, HS TROP, PTT, CMP, TSH3, CK, CBC, T4F #### [facility] [address] Albumin/Globulin [Mass ratio] Serum or plasma albumin/globulin mass ratio [facility] Serum or plasma anion gap de terminationOrdered By: Gucci Rashid on 06-03-2024 Anion gap [Moles/Vol] 10.9 mmol/L Normal 6.0-15.0 [facility] Comment on above: Performed By: #### M G, PT, HS TROP, PTT, CMP, TSH3, CK, CBC, T4F #### [facility] [address] Anion gap [Moles/Vol] Serum or plasma an ion gap determination 6.0-15.0 [facility] Sodium [Moles/volume] in Ser um or PlasmaOrdered By: Gucci Rashid on 06-03-2024 Sodium [Moles/Vol] 139 mmol/L Normal 136-145 [facility] Comment on above: Performed By: #### M G, PT, HS TROP, PTT, CMP, TSH3, CK, CBC, T4F #### [facility] [address] Street Sodium [Moles/Vol] Sodium [Moles/volume ] in Serum or Plasma 136-145 [facility] Specific gravity Test strip (U) [Rel density]Ordered By: Gucci Rashid on 06-03-2024 Specific gravity (U) [Rel density] 1.020 1.001-1.03 0 [facility] Specific gravity (U) [Rel density] Specific gravity of Urine by Test strip 1.001-1.03 0 [facility] Thyrotropin [Units/volume] i n Serum or PlasmaOrdered By: Gucci Rashid on 06-03-2024 TSH Qn 0.93 m[IU]/L Normal 0.45-5.33 [facility] Comment on above: Result Comment: PERF ORMED BY: [place] [address] PATHOLOGIST OLERICULTURE TEACHER NEELA BRAGG M.D. Performed By: #### U A #### [address] TSH Qn Thyrotropin [Units/volume] in Serum or Plasma 0.45-5.33 [facility] Thyroxine (T4) free [Mass/vo lume] in Serum or PlasmaOrdered By: Gucci Rashid on 06-03-2024 Free T4 [Mass/Vol] 0.77 ng/dL Normal 0.61-1.12 [facility] Comment on above: Performed By: #### U A #### [facility] [address] [place] [address] Free T4 [Mass/Vol] Thyroxine (T4) free [Mass/volume] in Serum or Plasma 0.61-1.12 [facility] Troponin I High Sensitivityo n 06-03-2024 Troponin I High Sensitivity 4.9 pg/mL Normal 0.0-20.0 [facility] Comment on above: Result Comment: PERF ORMED BY: [place] [address] PATHOLOGIST OLERICULTURE TEACHER NEELA BRAGG M.D. Performed By: #### M G, PT, HS TROP, PTT, CMP, TSH3, CK, CBC, T4F #### [facility] [address] [place] [address] Troponin I.cardiac [Mass/vol ume] in Serum or Plasma by Detection limit <= 0.01 ng/Ordered By: Gucci Rashid on 06-03-2024 Troponin I.cardiac DL <= 0.01 ng/mL [Mass/Vol] 4.9 pg/mL 0.0-20.0 [facility] Troponin I.cardiac DL <= 0.01 ng/mL [Mass/Vol] Troponin I.cardiac [Mass/volume] in Serum or Plasma by Detection limit <= 0.01 ng/ 0.0-20.0 [facility] Urea nitrogen [Mass/volume] in Serum or PlasmaOrdered By: Gucci Rashid on 06-03-2024 Urea nitrogen [Mass/Vol] 14 mg/dL Normal 05-05 [facility] Comment on above: Performed By: #### M G, PT, HS TROP, PTT, CMP, TSH3, CK, CBC, T4F #### [facility] [address] [place] [address] Urea nitrogen [Mass/Vol] Urea nitrogen [Mass/volume] in Serum or Plasma 05-05 [facility] Urinalysison 06-03-2024 Bilirubin,Urine Negative Normal Negative [facility] Comment on above: Order Comment: Name Collection Type:: Voided Performed By: #### U A #### [address] Glucose Ql (U) Normal Normal Normal [facility] Comment on above: Order Comment: Name Collection Type:: Voided Performed By: #### U A #### [address] Nitrite,Urine Negative Normal Negative [facility] Comment on above: Order Comment: Name Collection Type:: Voided Performed By: #### U A #### [place] [address] [place] Occult Blood,Urine Negative Normal Negative [facility] Comment on above: Order Comment: Name Collection Type:: Voided Result Comment: PERF ORMED BY: [place] [address] PATHOLOGIST OLERICULTURE TEACHER NEELA BRAGG M.D. Performed By: #### U A #### [address] Protein,Urine Negative Normal Negative [facility] Comment on above: Order Comment: Name Collection Type:: Voided Performed By: #### U A #### [facility] [address] Specificy [place],Urine 1.020 Normal 1.001-1.03 0 [facility] Comment on above: Order Comment: Name Collection Type:: Voided Performed By: #### U A #### [facility] [address] [place] [address] Urobilinogen,Urine Normal Normal Normal [facility] Comment on above: Order Comment: Name Collection Type:: Voided Performed By: #### U A #### [address] Urine appearanceOrdered By: Gucci Rashid on 06-03-2024 Appearance (U) Clear Normal Clear [facility] Comment on above: Order Comment: Name Collection Type:: Voided Performed By: #### U A #### [address] Urobilinogen Test strip (U) [Mass/Vol]Ordered By: Gucci Rashid on 06-03-2024 Urobilinogen (U) [Mass/Vol] Normal mg/dL Normal [facility] Urobilinogen (U) [Mass/Vol] Urobilinogen [Mass/volume] in Urine by Test strip Normal [facility] WBC Auto (Bld) [#/Vol]Ordere d By: Gucci Rashid on 06-03-2024 WBC (Bld) [#/Vol] Leukocytes [#/volume ] in Blood by Automated count 4.1-10.5 [facility] XR chest 2V*on 06-03-2024 XR chest 2V* [facility] [place] [address] XRay Report Signed Patient: Ravinder Hardy MR#: [id number] : 1975 Acct:[id number] Age/Sex: 48 / M ADM Date: 06/03/24 [...] Nazario Jr., D.ODevorah06/03/2024 3:29 PM Dictation Location: [place] [address] Transcribed By: [facility] 06/03/24 1529 Dictated By: Anil Nazario Jr, DO 06/03/24 1527 Signed By: 06/03/24 1529 Normal [facility] aPTT in Platelet poor plasma by Coagulation assayOrdered By: Gucci Rashid on 06-03-2024 aPTT Coag (PPP) [Time] Activated partial thromboplastin time (aPTT) in platelet poor plasma by coagulation a 25.1-36.5 [facility] Comment on above: A hematocrit value g reater than 55% may lead to inaccurate results in coagulation testing. Patients having hematocrit values >55% require a special collection tube for coagulation studies. Please contact the laboratory at [phone] for redraw instructions. pH Test strip (U)Ordered By: Gucci Rashid on 06-03-2024 pH (U) pH of Urine by Test strip 5.0-9.0 [facility] pH of Urine by Test stripOrd ered By: Gucci Rashid on 06-03-2024 pH (U) 6.5 [pH] Normal 5.0-9.0 [facility] Comment on above: Order Comment: Name Collection Type:: Voided Performed By: #### U A #### [address] COVID/FLU/RSV RT-PCRon 07-25 SARS-CoV-2 (COVID-19) RNA GEORGE+probe Ql (Unsp spec) Negative [facility] [employer] Other COVID/FLU/RSV RT-PCR Negative [facility] [employer] Other Quick Strepon 07-25-2023 S. pyogenes Org specific cx Ql (Throat) Negative [facility] [employer] Other Quick Strep [facility] [employer] Other CBC AUTO DIFFon 11-26-2022 BASO # 0.0 103/ul Normal 0.0-0.1 [facility] Comment on above: Performed By: #### C BC #### [facility] [address] [address] [address] Buzz Hedrick Basophils/100 WBC (Bld) 0.5 % Normal 0.2-2.0 [facility] Comment on above: Performed By: #### C BC #### [facility] [address] [place] [address] [address] Buzz Hedrick EO # 0.1 103/ul Normal 0.0-0.7 [facility] Comment on above: Performed By: #### C BC #### [facility] [address] [place] [address] [address] Buzz Hedrick Eosinophils/100 WBC (Bld) 1.4 % Normal 0.9-7.0 [facility] Comment on above: Performed By: #### C BC #### [facility] [address] [place] [address] [address] Buzz Hedrick Erythrocyte distribution width (RBC) [Ratio] 12.0 % Normal 11.0-15.0 [facility] Comment on above: Performed By: #### C BC #### [facility] [address] [place] [address] [address] Buzz Hedrick Hematocrit (Bld) [Volume fraction] 47.7 % Normal 42.0-54.0 [facility] Comment on above: Performed By: #### C BC #### [facility] [address] [place] [address] [address] Buzz Hedrick Hemoglobin (Bld) [Mass/Vol] 16.3 g/dL Normal 14.0-18.0 [facility] Comment on above: Performed By: #### C BC #### [facility] [address] [place] [address] [address] Buzz Hedrick IG # 0.01 10e3/ul Normal 0.00-0.03 [facility] Comment on above: Performed By: #### C BC #### [facility] [address] [place] [address] Dr. Buzz Hedrick IG % 0.1 % Normal 0.0-0.5 [facility] Comment on above: Performed By: #### C BC #### [facility] [address] [place] [address] Dr. Buzz Hedrick LYMPH # 1.9 103/ul Normal 1.2-3.8 [facility] Comment on above: Performed By: #### C BC #### [facility] [address] [place] [address] Dr. Buzz Hedrick Lymphocytes/100 WBC (Bld) 24.7 % Normal 20.5-60.0 [facility] Comment on above: Performed By: #### C BC #### [facility] [address] [place] [address] Dr. Buzz Hedrick MANUAL DIFF REQ NO Normal [facility] Comment on above: Performed By: #### C BC #### [facility] [address] [place] [address] Dr. Buzz Hedrick MCH (RBC) [Entitic mass] 29.0 pg Normal 25.9-34.0 [facility] Comment on above: Performed By: #### C BC #### [facility] [address] [place] [address] Dr. Buzz Hedrick MCHC (RBC) [Mass/Vol] 34.2 g/dL Normal 29.9-35.2 [facility] Comment on above: Performed By: #### C BC #### [facility] [address] [place] [address] Dr. Buzz Hedrick MCV (RBC) [Entitic vol] 84.9 fL Normal 80.0-94.0 [facility] Comment on above: Performed By: #### C BC #### [facility] [address] [place] [address] Dr. Buzz Hedrick MONO # 0.7 103/ul Normal 0.3-0.8 [facility] Comment on above: Performed By: #### C BC #### [facility] [address] [place] [address] [address] Buzz Hedrick Monocytes/100 WBC (Bld) 8.6 % Normal 1.7-12.0 [facility] Comment on above: Performed By: #### C BC #### [facility] [address] [place] [address] [address] Buzz Hedrick NEUT # 5.0 103/ul Normal 1.4-6.5 [facility] Comment on above: Performed By: #### C BC #### [facility] [address] [place] [address] Dr. Buzz Hedrick Neutrophils/100 WBC (Bld) 64.7 % Normal 43.0-75.0 [facility] Comment on above: Performed By: #### C BC #### [facility] [address] [place] [address] Dr. Buzz Hedrick Platelet mean volume (Bld) [Entitic vol] 9.5 fL Normal 9.5-13.5 [facility] Comment on above: Performed By: #### C BC #### [facility] [address] [place] [address] Dr. Buzz Hedrick PLT 242 103/ul Normal 150-450 [facility] Comment on above: Performed By: #### C BC #### [facility] [address] [place] [address] Dr. Buzz Hedrick RBC 5.62 106/ul Normal 4.70-6.10 [facility] Comment on above: Performed By: #### C BC #### [facility] [address] [place] [address] Dr. Buzz Hedrick WBC 7.7 103/ul Normal 4.0-11.0 [facility] Comment on above: Performed By: #### C BC #### [facility] [address] [place] [address] Dr. Buzz Hedrick GLYCOHEMOGLOBIN A1Con 2022 ADA RECOMMENDATION SEE BELOW Normal [facility] Comment on above: Result Comment: ADA RECOMMENDED LIMIT 4.0 - 6.0 ADA THERAPEUTIC TARGET < 7.0 ACTION SUGGESTED > 7.0 Performed By: #### A 1C #### [facility] [address] [place] [address] [address] Buzz Hedrick Glucose [Mass/Vol] 105 mg/dL Normal [facility] Comment on above: Performed By: #### A 1C #### [facility] [address] [place] [address] [address] Buzz Hedrick HbA1c (Bld) [Mass fraction] 5.3 % Normal 4.5-6.2 [facility] Comment on above: Performed By: #### A 1C #### [facility] [address] [place] [address] Dr. Buzz Hedrick LIPID PROFILEon 11-26-2022 CHOL-HDL RATIO NORM SEE BELOW Normal [facility] Comment on above: Result Comment: 3.3 - 4.4 LOW RISK 4.4 - 7.1 AVERAGE RISK 7.1 - 11.0 MODERATE RISK >11.0 HIGH RISK Performed By: #### B MP, TSH, LIPID, LIVER #### [facility] [address] [place] [address] Dr. Buzz Hedrick Cholesterol [Mass/Vol] 169 mg/dL Normal <=200 [facility] Comment on above: Performed By: #### B MP, TSH, LIPID, LIVER #### [facility] [address] [place] [address] Dr. Buzz Hedrick Cholesterol in HDL [Mass/Vol] 53 mg/dL Normal 40-60 [facility] Comment on above: Performed By: #### B MP, TSH, LIPID, LIVER #### [facility] [address] [place] [address] Dr. Buzz Hedrick Cholesterol in LDL [Mass/Vol] 101.8 mg/dL Normal [facility] Comment on above: Performed By: #### B MP, TSH, LIPID, LIVER #### [facility] [address] [place] [address] Dr. Buzz Hedrick Cholesterol.total/Chol esterol in HDL [Mass ratio] 3.2 {ratio} Normal [facility] Comment on above: Performed By: #### B MP, TSH, LIPID, LIVER #### [facility] [address] [address] [address] Buzz Hedrick HDL NORMAL > or = 60 mg/dl - LO W CARDIOVASCULAR RISK <40 mg/dl - HIGH CARDIOVASCULAR RISK Normal [facility] Comment on above: Performed By: #### B MP, TSH, LIPID, LIVER #### [facility] [address] [place] [address] [address] Buzz Hedrick LDL CALC NORMAL SEE BELOW Normal [facility] Comment on above: Result Comment: <100 mg/dl OPTIMAL 100 - 129 mg/dl NEAR OR ABOVE OPTIMAL 130 - 159 mg/dl BORDERLINE HIGH 160 - 189 mg/dl HIGH >190 mg/dl VERY HIGH Performed By: #### B MP, TSH, LIPID, LIVER #### [facility] [address] [address] [address] Buzz Hedrick Triglyceride [Mass/Vol] 71 mg/dL Normal <=150 [facility] Comment on above: Performed By: #### B MP, TSH, LIPID, LIVER #### [facility] [address] [place] [address] Dr. Buzz Hedrick VLDL CALC 14.2 mg/dL Normal [facility] Comment on above: Performed By: #### B MP, TSH, LIPID, LIVER #### [facility] [address] [place] [address] [address] Buzz Hedrick LIVER PROFILEon 11-26-2022 Albumin [Mass/Vol] 4.0 g/dL Normal 3.4-5.0 [facility] Comment on above: Performed By: #### B MP, TSH, LIPID, LIVER #### [facility] [address] [place] [address] Dr. Buzz Hedrick Albumin/Globulin [Mass ratio] 1.1 {ratio} Normal [facility] Comment on above: Performed By: #### B MP, TSH, LIPID, LIVER #### [facility] [address] [place] [address] Dr. Buzz Hedrick ALP [Catalytic activity/Vol] 91 U/L Normal 46-116 [facility] Comment on above: Performed By: #### B MP, TSH, LIPID, LIVER #### [facility] [address] [address] [address] Buzz Hedrick ALT [Catalytic activity/Vol] 67 U/L Critically high 16-63 [facility] Comment on above: Performed By: #### B MP, TSH, LIPID, LIVER #### [facility] [address] [address] [address] Buzz Hedrick AST [Catalytic activity/Vol] 31 U/L Normal 15-37 [facility] Comment on above: Performed By: #### B MP, TSH, LIPID, LIVER #### [facility] [address] [place] [address] Dr. Buzz Hedrick BILI, CONJUGATED 0.1 mg/dL Normal 0.0-0.2 [facility] Comment on above: Performed By: #### B MP, TSH, LIPID, LIVER #### [facility] [address] [place] [address] Dr. Buzz Hedrick Bilirubin [Mass/Vol] 0.5 mg/dL Normal 0.2-1.0 [facility] Comment on above: Performed By: #### B MP, TSH, LIPID, LIVER #### [facility] [address] [place] [address] Dr. Buzz Hedrick Globulin (S) [Mass/Vol] 3.8 g/dL Normal [facility] Comment on above: Performed By: #### B MP, TSH, LIPID, LIVER #### [facility] [address] [place] [address] Dr. Buzz Hedrick Protein [Mass/Vol] 7.8 g/dL Normal 6.4-8.2 [facility] Comment on above: Performed By: #### B MP, TSH, LIPID, LIVER #### [facility] [address] [place] [address] Dr. Buzz Hedrick PROF CHEM 8 (BAS METB)on Anion gap [Moles/Vol] 11.1 mmol/L Normal [facility] Comment on above: Performed By: #### B MP, TSH, LIPID, LIVER #### [facility] [address] [place] [address] Dr. Buzz Hedrick Calcium [Mass/Vol] 9.3 mg/dL Normal 8.5-10.1 [facility] Comment on above: Performed By: #### B MP, TSH, LIPID, LIVER #### [facility] [address] [address] [address] Buzz Hedrick Chloride [Moles/Vol] 102 mmol/L Normal 98-107 [facility] Comment on above: Performed By: #### B MP, TSH, LIPID, LIVER #### [facility] [address] [place] [address] Dr. Buzz Hedrick CO2 [Moles/Vol] 30.5 mmol/L Normal 21.0-32.0 [facility] Comment on above: Performed By: #### B MP, TSH, LIPID, LIVER #### [facility] [address] [place] [address] Dr. Buzz Hedrick Creatinine [Mass/Vol] 0.93 mg/dL Normal 0.70-1.30 [facility] Comment on above: Performed By: #### B MP, TSH, LIPID, LIVER #### [facility] [address] [place] [address] Dr. Buzz Hedrick EGFR-AF MALAYSIAN >60 Normal >=60 [facility] Comment on above: Performed By: #### B MP, TSH, LIPID, LIVER #### [facility] [address] [place] [address] Dr. Buzz Hedrick EGFR-NON AF MALAYSIAN >60 Normal >=60 [facility] Comment on above: Performed By: #### B MP, TSH, LIPID, LIVER #### [facility] [address] [place] [address] Dr. Buzz Hedrick Glucose [Mass/Vol] 86 mg/dL Normal 74-106 [facility] Comment on above: Performed By: #### B MP, TSH, LIPID, LIVER #### [facility] [address] [place] [address] Dr. Buzz Hedrick Potassium [Moles/Vol] 3.6 mmol/L Normal 3.5-5.1 [facility] Comment on above: Performed By: #### B MP, TSH, LIPID, LIVER #### [facility] [address] [place], [place] [address] Dr. Buzz Hedrick Sodium [Moles/Vol] 140 mmol/L Normal 136-145 [facility] Comment on above: Performed By: #### B MP, TSH, LIPID, LIVER #### [facility] [address] [address] [address] Buzz Hedrick Urea nitrogen [Mass/Vol] 11.0 mg/dL Normal 7.0-18.0 [facility] Comment on above: Performed By: #### B MP, TSH, LIPID, LIVER #### [facility] [address] [address] [address] Buzz Hedrick Urea nitrogen/Creatinine [Mass ratio] 11.8 mg/mg Normal [facility] Comment on above: Performed By: #### B MP, TSH, LIPID, LIVER #### [facility] [address] [place] [address] Dr. Buzz Hedrick TSHon 11-26-2022 TSH 0.747 uIU/mL Normal 0.358-3.74 0 [facility] Comment on above: Performed By: #### B MP, TSH, LIPID, LIVER #### [facility] [address] [place] [address] Dr. Buzz Hedrick COVID Quick Testingon 2021 Result Negative [facility] [employer] Other Quick Fluon 12-12-2021 FLUAV Ab CF (S) [Titer] Positive [facility] [employer] Other FLUBV Ab CF (S) [Titer] Negative [facility] [employer] Other Vital Signs Date Time Vital Sign Value Performing Clinician Facility 02-15-2025 14: Body height 177.8 cm Minda Givens MD Work Phone: [facility] 02-15-2025 14:040 Body mass index (BMI) [Ratio] 29.99 kg/m2 Minda Givens MD Work Phone: [facility] 02-15-2025 14:23-0400 Body weight 94.8 kg Minda Givens MD Work Phone: [facility] 02-15-2025 14:23-0400 Diastolic blood pressure 90 mm[Hg] Minda Givens MD Work Phone: [facility] 02-15-2025 14:23-0400 Heart rate 84 /min Minda Givens MD Work Phone: [facility] 02-15-2025 14:23-0400 Systolic blood pressure 144 mm[Hg] Minda Givens MD Work Phone: [facility] 09-01-2024 13:21-0500 Body height 180.34 cm Chay Reyna MD Work Phone: [facility] 09-01-2024 13:21-0500 Body mass index (BMI) [Ratio] 27.7 kg/m2 Chay Reyna MD Work Phone: [facility] 09-01-2024 13:21-0500 Body temperature 98.7 [degF] Chay Reyna MD Work Phone: [facility] 09-01-2024 13:21-0500 Body weight 90.26 kg Chay Reyna MD Work Phone: [facility] 09-01-2024 13:21-0500 Diastolic blood pressure 81 mm[Hg] Chay Reyna MD Work Phone: [facility] 09-01-2024 13:21-0500 Heart rate 95 /min Chay Reyna MD Work Phone: [facility] 09-01-2024 13:21-0500 Respiratory rate 14 /min Chay Reyna MD Work Phone: [facility] 09-01-2024 13:21-0500 SaO2% (BldA) [Mass fraction] 98 % Chay Reyna MD Work Phone: [facility] 09-01-2024 13:21-0500 Systolic blood pressure 130 mm[Hg] Chay Reyna MD Work Phone: [facility] 08-08-2024 09:42-0400 Body height 180.3 cm Minda Givens MD Work Phone: [facility] 08-08-2024 09:42-0400 Body mass index (BMI) [Ratio] 27.95 kg/m2 Minda Givens MD Work Phone: [facility] 08-08-2024 09:42-0400 Body weight 90.9 kg Minda Givens MD Work Phone: [facility] 08-08-2024 09:42-0400 Diastolic blood pressure 88 mm[Hg] Minda Givens MD Work Phone: [facility] 08-08-2024 09:42-0400 Heart rate 76 /min Minda Givens MD Work Phone: [facility] 08-08-2024 09:42-0400 Systolic blood pressure 128 mm[Hg] Minda Givens MD Work Phone: [facility] 08-03-2024 10:25-0400 Diastolic blood pressure 82 mm[Hg] Paige 1 [facility] 08-03-2024 10:25-0400 Heart rate 74 /min Paige 1 [facility] 08-03-2024 10:25-0400 Systolic blood pressure 132 mm[Hg] Paige 1 [facility] 08-03-2024 09:42-0400 Body height 180.3 cm [place] 2 [facility] 08-03-2024 09:42-0400 Body mass index (BMI) [Ratio] 27.89 kg/m2 [place] 2 [facility] 08-03-2024 09:42-0400 Body weight 90.72 kg [place] 2 [facility] 08-03-2024 09:42-0400 Diastolic blood pressure 80 mm[Hg] [address] 08-03-2024 09:42-0400 Systolic blood pressure 146 mm[Hg] [address] 06-21-2024 15:19-0400 Diastolic blood pressure 84 mm[Hg] Minda Givens MD Work Phone: [facility] 06-21-2024 15:19-0400 Systolic blood pressure 138 mm[Hg] Minda Givens MD Work Phone: [facility] 06-21-2024 15:13-0400 Heart rate 85 /min Minda Givens MD Work Phone: [facility] 06-21-2024 14:27-0400 Body height 180.3 cm Minda Givens MD Work Phone: [facility] 06-21-2024 14:27-0400 Body mass index (BMI) [Ratio] 28.01 kg/m2 Minda Givens MD Work Phone: [facility] 06-21-2024 14:27-0400 Body weight 91.08 kg Minda Givens MD Work Phone: [facility] 06-09-2024 15:25-0400 Body height 180.3 cm Chay Reyna MD Work Phone: [facility] 06-09-2024 15:25-0400 Body mass index (BMI) [Ratio] 27.62 kg/m2 Chay Reyna MD Work Phone: [facility] 06-09-2024 15:25-0400 Body temperature 97.81 [degF] Chay Reyna MD Work Phone: [facility] 06-09-2024 15:25-0400 Body weight 89.81 kg Chay Reyna MD Work Phone: [facility] 06-09-2024 15:25-0400 Diastolic blood pressure 82 mm[Hg] Chay Reyna MD Work Phone: [facility] 06-09-2024 15:25-0400 Heart rate 93 /min Chay Reyna MD Work Phone: [facility] 06-09-2024 15:25-0400 Respiratory rate 20 /min Chay Reyna MD Work Phone: [facility] 06-09-2024 15:25-0400 SaO2% (BldA) [Mass fraction] 97 % Chay Reyna MD Work Phone: [facility] 06-09-2024 15:25-0400 Systolic blood pressure 150 mm[Hg] Chay Reyna MD Work Phone: [facility] 06-03-2024 18:00-0400 Diastolic blood pressure 88 mm[Hg] MD Chay Reyna Work Phone: [facility] 06-03-2024 18:00-0400 Heart rate 86 /min MD Chay Reyna Work Phone: [facility] 06-03-2024 18:00-0400 Respiratory rate 20 /min MD Chay Reyna Work Phone: [facility] 06-03-2024 18:00-0400 SaO2% (BldA) [Mass fraction] 100 % MD Chay Reyna Work Phone: [facility] 06-03-2024 18:00-0400 Systolic blood pressure 153 mm[Hg] MD Chay Reyna Work Phone: [facility] 06-03-2024 14:48-0400 Body height 180.34 cm MD Chay Reyna Work Phone: [facility] 06-03-2024 14:48-0400 Body temperature 98.5 [degF] MD Chay Reyna Work Phone: [facility] 06-03-2024 14:48-0400 Body weight 89.81 kg MD Chay Reyna Work Phone: [facility] 07-25-2023 12:55-0400 Body height 180.34 cm Binta Mata Other [facility] Other 07-25-2023 12:55-0400 Body mass index (BMI) [Ratio] 28.87 kg/m2 Binta Esperanza Other [facility] Other 07-25-2023 12:55-0400 Body temperature 102.1 [degF] Binta Mata Other [facility] Other 07-25-2023 12:55-0400 Body weight 93.9 kg Binta Mata Other [facility] Other 07-25-2023 12:55-0400 Diastolic blood pressure 85 mm[Hg] Binta Mata Other [facility] Other 07-25-2023 12:55-0400 Respiratory rate 18 /min Binta Mata Other [facility] Other 07-25-2023 12:55-0400 SaO2% (BldA) [Mass fraction] 96 % Binta Mata Other [facility] Other 07-25-2023 12:55-0400 Systolic blood pressure 136 mm[Hg] Binta Jordanmond Other [facility] Other 12-12-2021 18:55-0500 Body height 180.34 cm Nadeen Coburn Other [facility] Other 12-12-2021 18:55-0500 Body mass index (BMI) [Ratio] 27.89 kg/m2 Nadeen Coburn Other [facility] Other 12-12-2021 18:55-0500 Body temperature 96.7 [degF] Nadeen Coburn Other [facility] Other 12-12-2021 18:55-0500 Body weight 90.72 kg Nadeen Coburn Other [facility] Other 12-12-2021 18:55-0500 Respiratory rate 18 /min Nadeen Coburn Other [facility] Other 12-12-2021 18:55-0500 SaO2% (BldA) [Mass fraction] 98 % Nadeen Coburn Other [facility] Other 07-09-2021 16:35-0400 Body height 180.34 cm Binta Mata Other [facility] Other 07-09-2021 16:35-0400 Body mass index (BMI) [Ratio] 27.89 kg/m2 Binta Jordanmond Other [facility] Other 07-09-2021 16:35-0400 Body temperature 97.3 [degF] Binta Jordanmond Other [facility] Other 07-09-2021 16:35-0400 Body weight 90.72 kg Binta Jordanmond Other [facility] Other 07-09-2021 16:35-0400 Diastolic blood pressure 82 mm[Hg] Binta Jordanmond Other [facility] Other 09-28-2021 16:35-0400 Respiratory rate 18 /min Binta Mata Other [facility] Other 07-09-2021 16:35-0400 SaO2% (BldA) [Mass fraction] 98 % Binta Mata Other [facility] Other 07-09-2021 16:35-0400 Systolic blood pressure 147 mm[Hg] Binta Mata Other [facility] Other Encounters Encounter Date Encounter Type Care Provider Facility Start: 02-15-2025 End: 02-15-2025 Office outpatient visit 15 minutes Minda Givens MD Work Phone: [facility] Comment on above: Ventricular ectopic beat (Primary Dx); White coat syndrome without diagnosis of hypertension; Palpitations; Abnormal EKG; Hypokalemia; BMI 29.0-29.9,adult; Never smoked tobacco Start: 02-15-2025 End: 02-15-2025 ambulatory [facility] Start: 01-17-2025 End: 01-17-2025 [facility] Start: 01-02-2025 ambulatory [facility]AND[facility] Start: 12-30-2024 End: 12-30-2024 ambulatory CHAY REYNA Not Available Start: 09-01-2024 End: 09-01-2024 ambulatory Chay Reyna MD Work Phone: [facility] Work Phone: Start: 09-01-2024 End: 09-01-2024 Patient encounter procedure Chay Reyna MD Work Phone: [facility] Work Phone: Start: 08-22-2024 End: 08-22-2024 Clinisync Result Encounter Generic External Data Provider [facility] External Department Unsolicited Start: 08-22-2024 End: 08-22-2024 Clinisync Result Encounter Generic External Data Provider [facility] External Department Unsolicited Start: 08-08-2024 End: 08-08-2024 Office outpatient visit 25 minutes Minda Givens MD Work Phone: [facility] Comment on above: Palpitations (Primar y Dx); Ventricular ectopic beat; BMI 27.0-27.9,adult; White coat syndrome without diagnosis of hypertension; Abnormal EKG; Never smoked tobacco; Hypokalemia Start: 08-08-2024 End: 08-08-2024 ambulatory [facility] Start: 08-03-2024 End: 08-03-2024 Subsequent hospital visit by physician Paige Nam Echo/Vasc Room 2 [facility] Comment on above: Palpitations; Ventricular ectopic beat; Abnormal EKG Abnormal EKG Start: 08-03-2024 End: 08-03-2024 ambulatory [facility] Start: 07-21-2024 End: 07-21-2024 Clinisync Result Encounter Generic External Data Provider [facility] External Department Unsolicited Start: 07-21-2024 End: 07-21-2024 Clinisync Result Encounter Generic External Data Provider [facility] External Department Unsolicited Start: 06-21-2024 End: 06-21-2024 Office outpatient new 45 minutes Minda Givens MD Work Phone: [facility] Comment on above: Palpitations (Primar y Dx); Ventricular ectopic beat; Abnormal EKG; White coat syndrome without diagnosis of hypertension; BMI 28.0-28.9,adult; Never smoked tobacco Start: 06-21-2024 End: 06-21-2024 ambulatory [facility] Start: 06-10-2024 Non-patient / Non-visit Chay gutierrez MD Work Phone: [facility] Work Phone: Start: 06-09-2024 End: 06-09-2024 Office outpatient visit 15 minutes Chay Reyna MD Work Phone: [facility] Comment on above: Palpitation (Primary Dx); Premature ventricular contraction; Essential hypertension, benign (CMS/HCC); Allergic reaction, subsequent encounter Start: 06-09-2024 End: 06-09-2024 ambulatory CHAY REYNA Not Available Start: 06-09-2024 End: 06-09-2024 Bamboo flowsheet Chay Reyna MD Work Phone: [facility] Start: 06-09-2024 End: 06-09-2024 Bamboo flowsheet Chay Reyna MD Work Phone: [facility] Start: 06-07-2024 End: 06-07-2024 Patient encounter procedure MD Chay Reyna Work Phone: [facility] Work Phone: Start: 06-07-2024 End: 06-07-2024 ambulatory MD Chay Reyna Work Phone: [facility] Work Phone: Start: 06-03-2024 End: 06-03-2024 Emergency department patient visit MD Chay Reyna Work Phone: [facility] Work Phone: Start: 12-22-2023 Patient encounter procedure Chay Reyna MD Work Phone: [facility] Start: 07-25-2023 End: 07-25-2023 ambulatory Binta Mata Other [facility] Other Start: 07-25-2023 Office outpatient vi sit 15 minutes Binta Mata [facility] Start: 12-09-2022 Encounter for genera l adult medical examination without abnormal findings DR CHAY REYNA [facility] Start: 11-26-2022 End: 11-27-[address] CHAY REYNA Facility:[facility] Start: 11-26-2022 End: 11-27-2022 Encounter for general adult medical examination without abnormal findings DR CHAY REYNA Facility:[facility] Start: 12-12-2021 End: 12-12-2021 ambulatory Nadeen Coburn Other [facility] Other Start: 12-12-2021 Office outpatient vi sit 15 minutes Nadeen Coburn [facility] Start: 07-09-2021 Office outpatient ne w 10 minutes Binta Mata [facility] Start: 02-09-2018 End: 02-10-2018 Ambulatory DEFAULT PHYSICIAN Facility:[facility] Procedures Date Procedure Procedure Detail Performing Clinician Start: 08-22-2024 ALL BASIC METABOLIC PANEL Generic External Data Provider Start: 08-03-2024 Echo tthrc r-t 2d w/wom-mode compl spec&colr d Minda Givens MD Work Phone: Start: 07-21-2024 ALL BASIC METABOLIC PANEL Generic External Data Provider Start: 06-21-2024 Ecg routine ecg w/le ast 12 lds w/i&r Minda Givens MD Work Phone: Start: 06-03-2024 Plain chest X-ray MD Lucero Reyna Work Phone: Start: 11-26-[address] CHAY GUTIERREZ Comment on above: Performed By: #### [facility] #### [facility] [address] [place] [address] Dr. Buzz Hedrick Plan of Treatment Date Care Activity Detail Author Start: 2026 Zoster Vaccines (1 o f 2) Zoster Vaccines (1 of 2) [facility] Start: 12-01-2025 End: 12-01-2025 Patient encounter procedure 12/01/2025 9:20 AM EST Office Visit [facility] [address] [facility] [address] [place] [address] Minda Givens MD [address] [facility] [address] [place] [address] [facility] Start: 06-12-2025 Influenza vaccination Influenz a Vaccine (Season Ended) [facility] Start: 02-15-2025 End: 02-15-2025 Patient encounter procedure 02/15/2025 2:30 PM EDT Office Visit [facility] [address] [facility] [address] [place] [address] Minda Givens MD [address] [facility] [address] [place] [address] [facility] Start: 12-12-2024 End: 12-12-2024 Patient encounter procedure 12/12/2024 8:30 AM EST Office Visit [facility] [address] [place] [phone] Chay Reyna MD [address] [place] [phone] [facility] Start: 10-28-2024 Screening for malign ant neoplasm of colon [facility] Start: 09-08-2024 End: 08-08-2025 Basic metabolic 2000 panel - Serum or Plasma Basic Metabolic Panel Lab Routine Ventricular ectopic beat Expected: 09/08/2024 (Approximate), Expires: 08/08/2025 [facility] Service Area Work Phone: Comment on above: Expected: 09/08/2024 (Approximate), Expires: 08/08/2025 Start: 08-08-2024 End: 08-08-2024 Patient encounter procedure 08/08/2024 9:40 AM EDT Office Visit [facility] [address] [facility] [address] [place] [address] Minda Givens MD [address] [facility] [address] [place] [address] [facility] Start: 08-03-2024 End: 08-03-2024 [facility] Start: 07-05-2024 End: 06-21-2025 Basic metabolic 2000 panel - Serum or Plasma Basic Metabolic Panel Lab Routine Palpitations Ventricular ectopic beat Expected: 07/05/2024 (Approximate), Expires: 06/21/2025 [facility] Service Area Work Phone: Comment on above: Expected: 07/05/2024 (Approximate), Expires: 06/21/2025 Start: 06-29-2024 End: 06-29-2024 Patient encounter procedure 06/29/2024 7:00 AM EDT Office Visit [facility] [address] [place] [phone] Chay Reyna MD [address] [place] [phone] [facility] Start: 06-21-2024 End: 06-21-2025 Cardiac stress study Procedure Stress Test Cardiac Services Routine Abnormal EKG Expected: 06/21/2024, Expires: 06/21/2025 [facility] Work Phone: Comment on above: Expected: 06/21/2024 , Expires: 06/21/2025 Start: 06-21-2024 End: 06-21-2026 US Heart Transthoracic Transthoracic Echo Complete Echocardiography Routine Palpitations Ventricular ectopic beat Abnormal EKG Expected: 06/21/2024 (Approximate), Expires: 06/21/2026 [facility] Work Phone: Comment on above: Expected: 06/21/2024 (Approximate), Expires: 06/21/2026 Start: 06-12-2024 COVID-19 Vaccine ( season) COVID-19 Vaccine ( season) [facility] Start: 06-12-2024 Influenza vaccination Influenza Vacc ine (#1) [facility] Start: 06-09-2024 End: 06-09-2024 Patient encounter procedure 06/09/2024 3:15 PM EDT Office Visit [facility] [address] [place] [phone] Chay Reyna MD [address] [place] [phone] Arrived [facility] Comment on above: Arrived Start: 02-23-2024 DTaP/Tdap/Td Vaccine s (2 - Td or Tdap) DTaP/Tdap/Td Vaccines (2 - Td or Tdap) [facility] Start: 1995 Hepatitis B Vaccines (1 of 3 - 19+ 3-dose series) Hepatitis B Vaccines (1 of 3 - 19+ 3-dose series) [facility] Start: 1994 Diabetes mellitus screening Diabetes Screening [facility] Start: 1994 Hepatitis C screening Hepatitis C Sc reening [facility] Start: 1977 MMR Vaccines (1 of 1 - Standard series) MMR Vaccines (1 of 1 - Standard series) [facility] Start: 1976 HIV screening HIV Screening [facility] Start: 1976 Lipid panel Lipid Panel [facility] Start: 1976 Screening for malign ant neoplasm of colon [facility] Start: 1976 Yearly Adult Physical Yearly Adult P hysical [facility] End: 08-03-2024 Cardiac stress study Procedure [facility] Service Area Work Phone: Comment on above: Once for 1 Occurrenc es starting 08/03/2024 until 08/03/2024 Patient Education Palpitations (DC) [facility] Work Phone: Patient referral [facility] Work Phone: Immunizations Immunization Date Immunization Notes Care Provider Fa cility 08-19-2023 Influenza, injectabl e, Madin [place] Canine Kidney, preservative free, quadrivalent Chay Reyna MD Work Phone: [facility] 08-19-2023 influenza virus vacc ine, unspecified formulation Chay Reyna MD Work Phone: [facility] 02-22-2014 tetanus toxoid, redu violet diphtheria toxoid, and acellular pertussis vaccine, adsorbed Chay Reyna MD Work Phone: [facility] Payers Date Payer Category Payer Self-pay 2024 Managed Care (Private) [facility] [id number] 2023 Private [facility] [place] [id number] 2023 Unknown 1976 Unknown [id number]. [id number] 1976 Unknown [id number] [id number]. 2.1246 1976 Unknown [id number] [id number]. 2.1246 1976 Unknown [id number] [id number]. 2.1259 1976 Unknown [id number] [id number]. 2.1259 1976 Unknown [id number] [id number]. 2.727 1976 Unknown [id number] [id number]. 2.1244 1976 Unknown [id number] [id number]. 2.1244 1976 Unknown [id number] [id number]. 2.1244 1959 Unknown [id number] Unknown [id number] [id number]. 2.531 Unknown [id number]. 2.531 Social History Date Type Detail Facility Unknown if ever smoked [facility] Other Start: 06-08-2024 End: 02-15-2025 Sex Assigned At [facility] Start: 06-03-2024 End: 06-21-2024 Tobacco smoking status NHIS Never smoked tobacco (finding) [facility] Start: 1975 Sex Assigned At Male [facility] Start: 12-22-2023 End: 06-21-2024 Tobacco use and exposure Smokeless tobacco non-user [facility] Start: 06-08-2024 End: 02-15-2025 History of Social function [facility] How often do you nee d to have someone help you when you read instructions, pamphlets, or other written material from your doctor or pharmacy [SILS] Never [facility] Do you belong to any clubs or organizations such as religion groups, unions, fraternal or athletic groups, or school groups? Yes [facility] Are you now , , , , never or living with a partner? [facility] How often to you hav e a drink containing alcohol? 2-4 times a month [facility] How many standard dr inks containing alcohol do you have on a typical day? 1 or 2 [facility] How often do you hav e 6 or more drinks on 1 occasion? Never [facility] Do you feel stress - tense, restless, nervous, or anxious, or unable to sleep at night because your mind is troubled all the time - these days [OSQ] To some extent [facility] (I/We) worried wheth er (my/our) food would run out before (I/we) got money to buy more. Never true [facility] In the past 12 month s, was there a time when you were not able to pay the mortgage or rent on time? No [facility] Start: 1975 Sex assigned at Not on file [facility] Start: 06-21-2024 End: 02-15-2025 Alcoholic beverage intake Current drinker of alcohol (finding) [facility] Work Phone: Start: 06-21-2024 Alcohol Comment occasionally [facility] Work Phone: Start: 06-11-2024 End: 02-15-2025 Exposure to SARS-CoV-2 (event) Not sure [facility] Start: 09-01-2024 Sex Male (finding) [facility] Clinical Notes 07-09-2021 to 02-15-2025 Minda Givens MD - 02/15/2025 2:30 PM EDTPatient InstructionsAttachmentsModarian Givens MD - 08/08/2024 9:40 AM EDTPatient InstructionsAttachmentsPatient Instructions Note Date & Type Note Facility 02-15-2025 History of Present illness Narrative Chief Complaint Patient presents with Follow-up 6m follow up ventricular ectopic beat Subjective Ravinder Hardy is a 49 y.o. male HPI Patient is here for follow-up continue management for history of palpitation and PVCs attributed to hypokalemia, hypertension with component of whitecoat hypertension. Since last time I saw him he denies any cardiac complaint of chest pain, palpitation, lightheadedness, dizziness or syncope he feels wonderful. He brought a copy of his blood pressure from home which is all normal. He brought also his machine which was very accurate and consistent with our machine. Assessment 1. Palpitation due to PVCs I suspect component of hypokalemia might be a trigger seem to be improving with magnesium and potassium replacement. This is completely resolved 2. Essential hypertension with component of whitecoat hypertension. His blood pressure at home is well-controlled. His machine is accurate 3. Mild hypokalemia due to diuretics. Corrected and resolved last 1 was 4.2 4. Abnormal EKG showing sinus tachycardia with nonspecific ST-T changes 4. Mildly overweight with BMI of 29 with mild weight gain recently Plan 1. I advised the patient to continue present medical regimen and to repeat his lab work to check his potassium and I told him our goal is potassium of 4 2. I reviewed his recent lab work 3. I advised him to continue to exercise and attempt to lose few pounds and restrict his salt 4. I will see him back in 8 months and follow-up Review of Systems All other systems reviewed and are negative. Vitals: 02/15/25 1423 BP: 144/90 BP Location: Left arm Patient Position: Sitting Pulse: 84 Weight: 94.8 kg (209 lb) Height: 1.778 m (5' 10 ) Objective Physical Exam Constitutional: Appearance: Normal appearance. HENT: Nose: Nose normal. Neck: Vascular: No carotid bruit. Cardiovascular: Rate and Rhythm: Normal rate. Pulses: Normal pulses. Heart sounds: Normal heart sounds. Pulmonary: Effort: Pulmonary effort is normal. Abdominal: General: Bowel sounds are normal. Palpations: Abdomen is soft. Musculoskeletal: General: Normal range of motion. Cervical back: Normal range of motion. Right lower leg: No edema. Left lower leg: No edema. Skin: General: Skin is warm and dry. Neurological: General: No focal deficit present. Mental Status: He is alert. Psychiatric: Mood and Affect: Mood normal. Behavior: Behavior normal. Thought Content: Thought content normal. Judgment: Judgment normal. Allergies Patient has no known allergies. Current Medications Current Outpatient Medications Medication Instructions cholecalciferol (Vitamin D-3) 50 MCG (2000 UT) tablet 1 tablet, Daily RT EPINEPHrine 0.3 mg/0.3 mL injection syringe INJECT 1 pen INTRAMUSCULARLY into the upper leg DIRECTED once; call 911 after use hydroCHLOROthiazide (HYDRODIURIL) 25 mg, Daily RT magnesium oxide (MAG-OX) 400 mg, oral, 2 times daily metoprolol succinate XL (TOPROL-XL) 50 mg, Daily multivitamin tablet 1 tablet, Daily potassium chloride CR (Klor-Con M20) 20 mEq ER tablet 20 mEq, oral, 2 times daily, Do not crush or chew. Assessment/Plan 1. Ventricular ectopic beat Follow Up In Cardiology Follow Up In Cardiology 2. White coat syndrome without diagnosis of hypertension 3. Palpitations 4. Abnormal EKG 5. Hypokalemia 6. BMI 29.0-29.9,adult 7. Never smoked tobacco Scribe Attestation By signing my name below, I, Albina Rhodes LPN, Scribe attest that this documentation has been prepared under the direction and in the presence of Minda Givens MD. Provider Attestation - Scribe documentation All medical record entries made by the Scribe were at my direction and personally dictated by me. I have reviewed the chart and agree that the record accurately reflects my personal performance of the history, physical exam, discussion and plan. documented in this encounter [facility] Work Phone: 02-15-2025 Instructions Albina Washington LPN - 02/15/2025 2:30 PM EDT Please bring all medicines, vitamins, and herbal supplements with you when you come to the office. Prescriptions will not be filled unless you are compliant with your follow up appointments or have a follow up appointment scheduled as per instruction of your physician. Refills should be requested at the time of your visit. BMI was above normal measurement. Current weight: 94.8 kg (209 lb) Weight change since last visit (-) denotes wt loss 8.6 lbs Weight loss needed to achieve BMI 25: 35.1 Lbs Weight loss needed to achieve BMI 30: 0.4 Lbs Provided instructions on dietary changes Provided instructions on exercise. The following attachments cannot be sent through Care Everywhere.DASH Diet (Albanian)documented in this encounter [facility] Work Phone: 01-17-2025 Note General Surgery Offi ce/Clinic Note Chief Complaint consultation for colonoscopy HPI Staff 49 year old male presents on consultation from Dr. Reyna for screening colonoscopy. Denies abdominal or rectal pain. No rectal bleeding or change in bowel habits. Denies nausea, vomiting or unexplained weight loss. No previous colonoscopy. No known family history of colon cancer. History of Present Illness 49 yo male with h/o htn, referred for colorectal screening; denies change in bms or blood in stools, no abd complaints; no abd operations or previous colonoscopy; no asa or NSAID use; no tobacco use; no fmhx of GI malignancy or IBD. Review of Systems PHQ Score Initial Depression Screen Score: 0 SCORE ROS - Provider Constitutional: no fever, no sweats, no weight loss. Eyes: no glasses, no blurred vision, no visual loss. ENMT: no dentures, no hoarseness, no swallowing difficulties, no hearing loss, no ear infection(s), no nose bleeds. Cardiovascular: normal blood pressure, no chest pain, regular heartbeat, no heart murmur. Respiratory: no shortness of breath, no cough, no asthma, no wheezing. Gastrointestinal: no nausea, no vomiting, no diarrhea, no constipation, no blood in stool, no change in bowel habits, no abdominal pain, no hepatitis. Genitourinary: no kidney stones, no urine infection, no dysuria. Musculoskeletal: no pain, no weakness. Skin: no changing moles, no rash, no skin lumps. Neurologic: no seizures, no epilepsy, no headache. Psychiatric: no emotional or psychiatric problem. Heme/Lymph: no bleeding problems, no anemia, no blood clots, no transfusions. Allergy/Immunologic: no swollen lymph nodes/glands, no IV drug abuse. Other: Additional ROS info: Except as noted in the above Review of Systems and in the History of Present Illness, all other systems have been reviewed and are negative or noncontributory. Physical Exam Vitals & Measurements HR: 76(Peripheral) RR: 16 BP: 148/100 HT: 71 in HT: 180 cm WT: 214.069 lb WT: 97.1 kg BMI: 29.97 HEENT: normal conjunctiva, sclera clear, no scleral icterus, EOM intact, PERRLA, oral mucosa moist without lesions. Neck: trachea midline, no mass, symmetric, no thyromegaly or nodules, no adenopathy Respiratory: lungs CTA, respirations non labored. Cardiovascular: regular rate and rhythm, no murmur, no pedal edema or varicosities. Gastrointestinal: soft, non distended, no tenderness, no masses, no palpable hernias, diastasis recti no, no hepatosplenomegaly; normal bs Lymphatic: no cervical adenopathy, no supraclavicular adenopathy. Musculoskeletal: normal gait, digits and nails without infection, nodes, cyanosis, clubbing. Skin: no rashes, no lesions, no ulcers, no subcutaneous nodules, induration. Psychiatric/Neuro: oriented to time, place, person, judgement normal, affect appropriate for age, insight intact, no focal deficits. Tests: , review of old records completed , Discussed surgical options, risks, and possible complications with patient. Assessment/Plan 1. Screening for malignant neoplasm of colon (Z12.11: Encounter for screening for malignant neoplasm of colon) plan colonoscopy under anesthesia informed consent obtained. Follow-up No qualifying data available Problem List/Past Medical History Ongoing BMI 29.0-29.9,adult Hypertension Overweight PVCs (premature ventricular contractions) Screening for malignant neoplasm of colon Historical No qualifying data Procedure/Surgical History Vasectomy (04/10/2013). Medications hydrochlorothiazide 25 mg Tab, 25 mg= 1 tab(s), Oral, Daily magnesium oxide 400 mg Tab, 400 mg= 1 tab(s), Oral, BID metoprolol succinate 50 mg ER Tab, 50 mg= 1 tab(s), Oral, Daily multivitamin, 1 tab(s), Oral, Daily potassium chloride 20 mEq ER Tab, 20 mEq= 1 tab(s), Oral, BID Vitamin D3 2000 intl units oral Tab, 50 mcg= 1 cap(s), Oral, Daily Allergies Bee Stings (Anaphylaxis) No Known Medication Allergies Social History Alcohol Current. Beer, Wine, Liquor. 1-2 times per month., 01/14/2025 Substance Abuse Never., 01/14/2025 Tobacco Never (less than 100 in lifetime) Tobacco Use:. Never Smokeless Tobacco Use:., 01/17/2025 Family History Hypertension: Mother, Father and Brother. Immunizations Vaccine Date Status SARS-CoV-2 (COVID-19) mRNA-1273 vaccine 08/15/2021 Recorded SARS-CoV-2 (COVID-19) mRNA-1273 vaccine 01/22/2021 Recorded SARS-CoV-2 (COVID-19) mRNA-1273 vaccine 12/25/2020 Recorded [facility] Comment on above: Result Comment: Elec tronically Signed By: SABIHA JON, Nguyễn Michael\Date and Time Signed: 01/17/25 14:46 EDT 08-08-2024 History of Present illness Narrative Subjective Ravinder Hardy is a 48 y.o. male Chief Complaint Follow-up HPI Patient is here for follow-up continue management for recent evaluation for palpitation and PVCs which felt to be related to mild hypokalemia associated with diuretic therapy. He underwent stress test and echocardiogram both appear reassuring. Patient was given potassium replacement and repeat potassium remains mildly low. His potassium replacement was doubled. He noticed improvement of his palpitation. Scruff functional class I. He denies lightheadedness, dizziness or syncope. Assessment 1. Palpitation due to PVCs I suspect component of hypokalemia might be a trigger seem to be improving with magnesium and potassium replacement 2. Essential hypertension with component of whitecoat hypertension 3. Mild hypokalemia due to diuretics 4. Abnormal EKG showing sinus tachycardia with nonspecific ST-T changes 4. Mildly overweight with BMI of 27 Plan 1. I advised the patient to continue present medical regimen and to repeat his lab work to check his potassium and I told him our goal is potassium of 4 2. I reviewed his echo and a stress test and reassured him 3. I advised him to continue to exercise and attempt to lose few pounds and restrict his salt intake Review of Systems Cardiovascular: Positive for palpitations. All other systems reviewed and are negative. Vitals: 08/08/24 0942 BP: 128/88 BP Location: Left arm Patient Position: Sitting Pulse: 76 Weight: 90.9 kg (200 lb 6.4 oz) Height: 1.803 m (5' 11 ) Objective Physical Exam Constitutional: Appearance: Normal appearance. HENT: Nose: Nose normal. Neck: Vascular: No carotid bruit. Cardiovascular: Rate and Rhythm: Normal rate. Pulses: Normal pulses. Heart sounds: Normal heart sounds. Pulmonary: Effort: Pulmonary effort is normal. Abdominal: General: Bowel sounds are normal. Palpations: Abdomen is soft. Musculoskeletal: General: Normal range of motion. Cervical back: Normal range of motion. Right lower leg: No edema. Left lower leg: No edema. Skin: General: Skin is warm and dry. Neurological: General: No focal deficit present. Mental Status: He is alert. Psychiatric: Mood and Affect: Mood normal. Behavior: Behavior normal. Thought Content: Thought content normal. Judgment: Judgment normal. Allergies Patient has no known allergies. Current Medications Current Outpatient Medications: cholecalciferol (Vitamin D-3) 50 MCG (2000 UT) tablet, Take 1 tablet (2,000 Units) by mouth once daily., Disp: , Rfl: EPINEPHrine 0.3 mg/0.3 mL injection syringe, INJECT 1 pen INTRAMUSCULARLY into the upper leg DIRECTED once; call 911 after use, Disp: , Rfl: hydroCHLOROthiazide (HYDRODiuril) 25 mg tablet, Take 1 tablet (25 mg) by mouth once daily., Disp: , Rfl: magnesium oxide (Mag-Ox) 400 mg tablet, Take 1 tablet (400 mg) by mouth 2 times a day., Disp: 180 tablet, Rfl: 3 metoprolol succinate XL (Toprol-XL) 50 mg 24 hr tablet, Take 1 tablet (50 mg) by mouth once daily., Disp: , Rfl: multivitamin tablet, Take 1 tablet by mouth once daily., Disp: , Rfl: potassium chloride CR (Klor-Con M20) 20 mEq ER tablet, Take 1 tablet (20 mEq) by mouth 2 times a day. Do not crush or chew., Disp: 180 tablet, Rfl: 3 Assessment/Plan 1. Palpitations 2. Ventricular ectopic beat Follow Up In Cardiology Follow Up In Cardiology Basic Metabolic Panel Basic Metabolic Panel 3. BMI 27.0-27.9,adult 4. White coat syndrome without diagnosis of hypertension 5. Abnormal EKG 6. Never smoked tobacco Scribe Attestation By signing my name below, Manda Gan LPN , Scribe attest that this documentation has been prepared under the direction and in the presence of Minda Givens MD. Provider Attestation - Scribe documentation All medical record entries made by the Scribe were at my direction and personally dictated by me. I have reviewed the chart and agree that the record accurately reflects my personal performance of the history, physical exam, discussion and plan. documented in this encounter [facility] Work Phone: 08-08-2024 Instructions Manda Calderón LPN - 08/08/2024 9:40 AM EDT Please bring all medicines, vitamins, and herbal supplements with you when you come to the office. Prescriptions will not be filled unless you are compliant with your follow up appointments or have a follow up appointment scheduled as per instruction of your physician. Refills should be requested at the time of your visit. BMI was above normal measurement. Current weight: 90.9 kg (200 lb 6.4 oz) Weight change since last visit (-) denotes wt loss 0.4 lbs Weight loss needed to achieve BMI 25: 21.5 Lbs Weight loss needed to achieve BMI 30: -14.2 Lbs Provided instructions on dietary changes Provided instructions on exercise. 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 He report he was diagnosed with PVCs several years ago. He was evaluated and was reassured and discharged home. I was able to retrieve his lab work his potassium was 3.3. He had an outpatient Holter monitor that showed moderate volume PVC more than 8000. The patient scruff palpitation but denies chest pain, lightheadedness, dizziness or syncope. He is physically active. He has been on treatment for hypertension for years. He described type a personality and being a little bit nervous and hot to reactor. He appears to have component of whitecoat hypertension. He has been on low-dose diuretics for years. Metoprolol was added recently. Patient denies any previous history of syncope and there is no family history of sudden cardiac . Assessment 1. Palpitation due to PVCs I suspect component of hypokalemia might be a trigger 2. Essential hypertension with component of whitecoat hypertension 3. Mild hypokalemia due to diuretics 4. Abnormal EKG showing sinus tachycardia with nonspecific ST-T changes 4. Mildly overweight with BMI of 28 Plan 1. I advised the patient start take magnesium oxide 400 mg twice daily and potassium 20 mill equivalent daily and I advised him to increase his potassium rich food and to repeat his lab work in 4 to 6 weeks 2. Will do an echocardiogram and GXT for risk stratification 3. I reassured the patient and advised him to notify him with any change of cardiac status or symptoms Past Medical History: He has no past medical history on file. Surgical History: He has a past surgical history that includes Vasectomy. Family History: Family History Problem Relation Name Age of Onset Hypertension Mother Hypertension Father Hypertension Brother Social History: Social History Tobacco Use Smoking status: Never Smokeless tobacco: Never Substance Use Topics Alcohol use: Yes Comment: occasionally Allergies: Patient has no known allergies. Current Medications: Current Outpatient Medications: cholecalciferol (Vitamin D-3) 50 MCG (2000 UT) tablet, Take 1 tablet (2,000 Units) by mouth once daily., Disp: , Rfl: EPINEPHrine 0.3 mg/0.3 mL injection syringe, INJECT 1 pen INTRAMUSCULARLY into the upper leg DIRECTED once; call 911 after use, Disp: , Rfl: hydroCHLOROthiazide (HYDRODiuril) 25 mg tablet, Take 1 tablet (25 mg) by mouth once daily., Disp: , Rfl: metoprolol succinate XL (Toprol-XL) 50 mg 24 hr tablet, Take 1 tablet (50 mg) by mouth once daily., Disp: , Rfl: multivitamin tablet, Take 1 tablet by mouth once daily., Disp: , Rfl: magnesium oxide (Mag-Ox) 400 mg tablet, Take 1 tablet (400 mg) by mouth 2 times a day., Disp: 180 tablet, Rfl: 3 potassium chloride CR (Klor-Con M20) 20 mEq ER tablet, Take 1 tablet (20 mEq) by mouth once daily. Do not crush or chew., Disp: 90 tablet, Rfl: 2 Vitals: Vitals: 06/21/24 1427 06/21/24 1428 06/21/24 1513 06/21/24 1519 BP: (!) 172/92 (!) 176/102 140/84 138/84 BP Location: Left arm Right arm Right arm Patient Position: Sitting Sitting Pulse: 104 85 Weight: 91.1 kg (200 lb 12.8 oz) Height: 1.803 m (5' 11 ) EKG done in office today Review of Systems Cardiovascular: Positive for palpitations. All other systems reviewed and are negative. Objective Physical Exam Assessment and Plan: 1. Palpitations ECG 12 Lead potassium chloride CR (Klor-Con M20) 20 mEq ER tablet Basic Metabolic Panel magnesium oxide (Mag-Ox) 400 mg tablet Transthoracic Echo Complete Basic Metabolic Panel 2. Ventricular ectopic beat Follow Up In Cardiology ECG 12 Lead potassium chloride CR (Klor-Con M20) 20 mEq ER tablet Basic Metabolic Panel magnesium oxide (Mag-Ox) 400 mg tablet Transthoracic Echo Complete Basic Metabolic Panel 3. Abnormal EKG Transthoracic Echo Complete Stress Test 4. White coat syndrome without diagnosis of hypertension 5. BMI 28.0-28.9,adult 6. Never smoked tobacco Scribe Attestation By signing my name below, IBell LPN, Scribe attest that this documentation has been prepared under the direction and in the presence of Minda Givens MD. Provider Attestation - Scribe documentation All medical record entries made by the Scribe were at my direction and personally dictated by me. I have reviewed the chart and agree that the record accurately reflects my personal performance of the history, physical exam, discussion and plan. documented in this encounter [facility] Work Phone: 06-21-2024 Instructions Bell Donald LPN - 06/21/2024 2:10 PM EDT Please bring all medicines, vitamins, and herbal supplements with you when you come to the office. Prescriptions will not be filled unless you are compliant with your follow up appointments or have a follow up appointment scheduled as per instruction of your physician. Refills should be requested at the time of your visit. BMI was above normal measurement. Current weight: 91.1 kg (200 lb 12.8 oz) Weight change since last visit (-) denotes wt loss 200.8 lbs Weight loss needed to achieve BMI 25: 21.9 Lbs Weight loss needed to achieve BMI 30: -13.8 Lbs Provided instructions on dietary changes Provided instructions on exercise. Potassium Mag ox GXT Echo Follow up results documented in this encounter [facility] Work Phone: 06-09-2024 History of Present illness Narrative Associated Problem(s): Essential hypertension, benign (CMS/HCC) BP controlled and monitor PRN. Discussed DASH diet. Associated Problem(s): Premature ventricular contraction Frequent symptoms and continue metoprolol. Holter results pending. Follow up with cardiology. Associated Problem(s): Palpitation Frequent symptoms and continue metoprolol. Holter results pending. Follow up with cardiology. Images from the original note were not included. Subjective Patient ID: Ravinder Hardy is a 48 y.o. male who presents for Follow-up ([facility] ER F/UP). Hospital follow up from 06/03 for palpitations. Reports symptoms off and on for months but getting worse. Often feels like heart racing and skipping beats. Not lightheaded or dizzy. Wears watch that monitors pulse and often notices fast heart rate. [place] symptoms more intense and lasted longer and to ER. EKG without evidence of ischemia. Labs showed normal TSH and CBC. Noted frequent PVCs on telemetry. Started metoprolol and discharged. Worse Holter and just sent in. Still with palpitations and often feels heart racing but not as intense. Checking BP PRN and typically controlled. BP elevated today. Taking medication daily and tolerating without side effects. Review of Systems Constitutional: Negative for fatigue. Respiratory: Negative for cough, shortness of breath and wheezing. Cardiovascular: Negative for chest pain and palpitations. Gastrointestinal: Negative for abdominal pain, diarrhea, nausea and vomiting. Genitourinary: Negative for dysuria. Objective Physical Exam Constitutional: General: He is not in acute distress. Appearance: Normal appearance. HENT: Head: Normocephalic. Right Ear: Tympanic membrane and ear canal normal. Left Ear: Tympanic membrane and ear canal normal. Eyes: Extraocular Movements: Extraocular movements intact. Pupils: Pupils are equal, round, and reactive to light. Cardiovascular: Rate and Rhythm: Normal rate and regular rhythm. Heart sounds: No murmur heard. No friction rub. No gallop. Pulmonary: Breath sounds: Normal breath sounds. No wheezing, rhonchi or rales. Abdominal: General: Bowel sounds are normal. There is no distension. Palpations: Abdomen is soft. Tenderness: There is no abdominal tenderness. There is no guarding or rebound. Musculoskeletal: Left lower leg: No edema. Neurological: Mental Status: He is alert. Assessment/Plan Problem List Items Addressed This Visit Essential hypertension, benign (CMS/HCC) BP controlled and monitor PRN. Discussed DASH diet. Premature ventricular contraction Frequent symptoms and continue metoprolol. Holter results pending. Follow up with cardiology. Relevant Medications metoprolol succinate XL (Toprol-XL) 50 MG 24 hr tablet Palpitation - Primary Frequent symptoms and continue metoprolol. Holter results pending. Follow up with cardiology. Other Visit Diagnoses Allergic reaction, subsequent encounter Relevant Medications EPINEPHrine (EpiPen 2-Atif) 0.3 MG/0.3ML injection syringe documented in this encounter [facility] 07-25-2023 Evaluation note Encounter Date Diagnosis Assessment Notes Jul, Sore throat (ICD-10 - J02.9) Jul, Viral upper respiratory infection (ICD-10 - J06.9) Viral upper respiratory infection: adult home care material was printed Jul, Left ear impacted cerumen (ICD-10 - H61.22) Cerumen impaction home care material was printed Jul, Fever, unspecified fever cause (ICD-10 - R50.9) [facility] Other 03-03-2022 Evaluation note* Encounter Date Diagnosis Assessment Notes Treatment Notes Treatment Clinical Notes Dec, Contact with and (suspected) exposure [...] Patient care instructions given in writting by [facility] document. [facility] Other 09-28-2021 Evaluation note* Encounter Date Diagnosis Assessment Notes Treatment Notes Treatment Clinical Notes Jun, Achilles tendinitis of left lower extremity (ICD-10 - M76.62) Achilles tendonopathy material was printed. Drink plenty of fluids, get plenty of rest. Take the naproxen as prescribed for pain. Follow-up with an orthopedic physician of your choice if no improvement in 5 to 7 days. [facility] Other Evaluation noteNo assessment information available [facility] Work Phone: Evaluation note* Diagnosis Palpitations Ventricular ectopic beat Other premature beats Abnormal EKG Nonspecific abnormal electrocardiogram (ECG) (EKG) documented in this encounter [facility] Work Phone: Evaluation note* Diagnosis Abnormal EKG Nonspecific abnormal electrocardiogram (ECG) (EKG) documented in this encounter [facility] Work Phone: Evaluation note* Diagnosis Palpitations- Primary Ventricular ectopic beat Other premature beats BMI 27.0-27.9,adult White coat syndrome without diagnosis of hypertension Abnormal EKG Nonspecific abnormal electrocardiogram (ECG) (EKG) Never smoked tobacco Hypokalemia Hypopotassemia documented in this encounter [facility] Work Phone: Evaluation note* Diagnosis Palpitations- Primary Ventricular ectopic beat Other premature beats Abnormal EKG Nonspecific abnormal electrocardiogram (ECG) (EKG) White coat syndrome without diagnosis of hypertension BMI 28.0-28.9,adult Never smoked tobacco documented in this encounter [facility] Work Phone: Evaluation note* Diagnosis Palpitation- Primary Palpitations Premature ventricular contraction Other premature beats Essential hypertension, benign (CMS/HCC) Essential hypertension, benign Allergic reaction, subsequent encounter [facility] Diagnosis Ventricular ectopic beat- Primary Other premature beats White coat syndrome without diagnosis of hypertension Palpitations Abnormal EKG Nonspecific abnormal electrocardiogram (ECG) (EKG) Hypokalemia Hypopotassemia BMI 29.0-29.9,adult Never smoked tobacco documented in this encounter [facility] Work Phone: History general Narrative - Reported* Type Description Date Medical History hypertension Surgical History vasectomy [facility] Other Hospital Discharge instructions Additional Instructions Follow-up with your primary care doctor Return to ED if develop worsening [facility] Reason for visit Narrative* CV Imaging (Routine) - Authorized Specialty Diagnoses / Procedures Referred By Isidra calderón Referred To Contact Cardiology Diagnoses Palpitations Ventricular ectopic beat Abnormal EKG Procedures Transthoracic Echo Complete WA ECHO TTHRC R-T 2D W/WOM-MODE COMPL SPEC&COLR D Minda Givens MD [address] [place] [address] Phone: tel: fax: Referral ID Status Reason Start Date Expiration Date Visits Requested Visits Authorized [id number] Authorized Perform Procedure 06/21/2024 06/21/2025 1 1 [facility] Work Phone: Reason for visit Narrative* Cardiac Stress Testing (Routine) - Authorized Specialty Diagnoses / Procedures Referred By Isidra t Referred To Contact Cardiology Diagnoses Abnormal EKG Procedures Stress Test WA CV STRS TST XERS&/OR RX CONT ECG TRCG ONLY Minda Givens MD [address] [place] [address], [address] [address] Phone: tel: fax: Referral ID Status Reason Start Date Expiration Date V isits Requested Visits Authorized [id number] Authorized 06/21/2024 06/21/2025 1 1 [facility] Work Phone: Summary Purpose Family History No Family History Records Found Relationship Condition Age at Onset Recorded Date/T graciela father Hypertension Unknown mother Hypertension Unknown Advance Directives No Advanced Directives Records Found Advance Directive Response Recorded Date/ Time Advance Directives No June 03, 2024 3:41pm Advance Directive Response Recorded Date/ Time Advance Directives No June 03, 2024 2:41pm Chief Complaint and Reason for Visit Chief Complaint irregular heartbeat Chief Complaint irregular heartbeat heart palpitations Chief Complaint Admit Date irregular heartbeat June 03, 2024 2: 27pm heart palpitations June 07, 2024 12 :37pm heart palpitations June 10, 2024 3: 44pm cough, fever September 01, 2024 1:17pm Reason for Referral Specialty Diagnoses / Procedures Referred By Contac t Referred To Contact Cardiology Diagnoses Abnormal EKG Procedures Stress Test WA CV STRS TST XERS&/OR RX CONT ECG TRCG ONLY Minda Givens MD [address] [place] [address], [address] [address] Referral ID Status Reason Start Date Expiration Date V isits Requested Visits Authorized [id number] Pending Review 06/21/2024 06/21/2025 1 1 Specialty Diagnoses / Procedures Referred By Contac t Referred To Contact Cardiology Diagnoses Palpitations Ventricular ectopic beat Abnormal EKG Procedures Transthoracic Echo Complete WA ECHO TTHRC R-T 2D W/WOM-MODE COMPL SPEC&COLR D Minda Givens MD [address] [place], [place] [address]er [facility], [address] [address] Referral ID Status Reason Start Date Expiration Date Visits Requested Visits Authorized [id number] Pending Review Perform Procedure 06/21/2024 06/21/2025 1 1 Specialty Diagnoses / Procedures Referred By Contac t Referred To Contact Diagnoses Palpitations Ventricular ectopic beat Minda Givens MD [address] [facility] 2, [address] [address] Referral ID Status Reason Start Date Expiration Date V isits Requested Visits Authorized [id number] Pending Review 06/21/2024 06/21/2025 1 1 Specialty Diagnoses / Procedures Referred By Contac t Referred To Contact Diagnoses Palpitations Ventricular ectopic beat Procedures ECG 12 Lead Minda Givens MD [address] [facility] 2, [address] [address] Referral ID Status Reason Start Date Expiration Date V isits Requested Visits Authorized [id number] Authorized 06/21/2024 06/21/2025 1 1 Specialty Diagnoses / Procedures Referred By Contac t Referred To Contact Cardiology Diagnoses Ventricular ectopic beat Procedures Follow Up In Cardiology Minda Givens MD [address] [facility] 2, [address] [address] Minda Givens MD [address] [facility] 2, [address] [address] Referral ID Status Reason Start Date Expiration Date V isits Requested Visits Authorized [id number] Authorized 06/21/2024 06/21/2025 1 1 Additional Source Comments (unrecognized sect ion and content) No Status Records FoundNo Status Records FoundNo Status Records FoundNo Status Records FoundNo Status Records FoundNo Status Records FoundNo Status Records Found INFORMATION SOURCE (unrecogn ized section and content) DATE CREATED AUTHOR 04/01/2018 [facility] DATE CREATED AUTHOR AUTHOR'S ORGANIZ ATION 12/11/2022 [facility] DATE CREATED AUTHOR AUTHOR'S ORGANIZ ATION 06/21/2024 [facility] DATE CREATED AUTHOR AUTHOR'S ORGANIZ ATION 08/09/2024 [facility] DATE CREATED AUTHOR AUTHOR'S ORGANIZ ATION 01/01/2025 [facility] DATE CREATED AUTHOR AUTHOR'S ORGANIZ ATION 01/18/2025 Cronin Robbin [facility] DATE CREATED AUTHOR AUTHOR'S ORGANIZ ATION 02/18/2025 [facility] REASON FOR VISIT (unrecogniz ed section and content) Reason Comments Follow-up 6m follow up ventric ular ectopic beat Specialty Diagnoses / Procedures Referred By Contac t Referred To Contact Cardiology Diagnoses Ventricular ectopic beat Procedures Follow Up In Cardiology Minda Givens MD [address] [facility] 2, [address] [address] Phone: tel: fax: Minda Givens MD [address] [place] [address] 2, [address] [address] Phone: tel: fax: Referral ID Status Reason Start Date Expiration Date V isits Requested Visits Authorized [id number] Authorized 08/08/2024 08/08/2025 1 1 Reason Comments Follow-up Echo/ stress results Referral ID Status Reason Start Date Expiration Date V isits Requested Visits Authorized [id number] Authorized 06/21/2024 06/21/2025 1 1 Reason Comments New Patient Visit [facility] ER-palps Specialty Diagnoses / Procedures Referred By Isidra calderón Referred To Contact Diagnoses Palpitations Ventricular ectopic beat Procedures ECG 12 Lead Minda Givens MD [address] [place] [address] 2, [address] [address] Referral ID Status Reason Start Date Expiration Date V isits Requested Visits Authorized [id number] Authorized 06/21/2024 06/21/2025 1 1 Reason Comments Follow-up [facility] ER F/UP Care Teams (unrecognized sec tion and content) [...] 2024 End: June 07, 2024 Gucci Rashid , Attending Provider Active Sta rt: June 07, 2024 End: June 07, 2024 Account Development Executive Relationship Specialty Start Date End Date Chay Reyna MD [address] [place] [phone] PCP - General Family Medicine 11/02/23 Chay Reyna MD [address] [place] [phone] PCP - Medical [employer] 04/11/19 10/11/99 Account Development Executive Relationship Specialty Start Date End Date Chay Reyna MD [address] [place] [address] PCP - General Family Medicine 06/21/24 Account Development Executive Relationship Specialty Start Date End Date Chay Reyna MD [address] [place] [address] PCP - General Family Medicine 06/21/24 Account Development Executive Relationship Specialty Start Date End Date Chay Reyna MD [address] [place] [phone] PCP - General Family Medicine 11/02/23 Chya Reyna MD [address] [place] [phone] PCP - Medical [employer] 04/11/19 10/11/99 Team Status: Active Member Role Status Dates Chay Reyna MD Primary Care Provider Active S tart: June 10, 2024 Gucci Rashid DO Other Provider Active Start: June 10, 2024 Anton Gross MD Attending Provider Activ e Start: June 10, 2024 Team Status: Inactive Member Role Status Dates Chay Reyna MD Primary Care Provider Active S tart: September 01, 2024 End: September 01, 2024 Laura Manzano , CAMELIA Attending Provider Active Start: September 01, 2024 End: September 01, 2024 Account Development Executive Relationship Specialty Start Date End Date Chay Reyna MD [address] [place] [address] PCP - General Family Medicine 06/21/24 Account Development Executive Relationship Specialty Start Date End Date Chay Reyna MD [address] [place] [phone] PCP - General Family Medicine 11/02/23 Chay Reyna MD [address] [place] [phone] PCP - Medical [facility] 04/11/19 10/11/99 Account Development Executive Relationship Specialty Start Date End Date Chay Reyna MD [address] [place] [address] PCP - General Family Medicine 06/21/24 Goals (unrecognized section and content) Goals may [...] BE BASED ON THE PRIMARY CLINICAL RECORDS. [employer] provides no warranty or guarantee of the accuracy or completeness of information in this document.
[2025-04-12 06:20] VITALS: BP 155/92; PULSE 93; TEMP 36.1; O2SAT 98; BMI 28.2
[2025-04-12] MEDS: 0.9 % SODIUM CHLORIDE 500 ML 50 ML IV (06:53)
[2025-04-12 07:53] VITALS: BP 107/71; PULSE 76; O2SAT 96
[2025-04-12 08:08] VITALS: BP 97/77; PULSE 79; O2SAT 96
== END 2025-04-12 08:32 | disposition home or self-care (01) ==
LOC: SURGOUT 06:14
PROVIDERS: PCP Family Medicine; Visit Provider Surgery
PROC: (CPT 811; principal; 2025-04-12 07:30)
DX: Z12.11 Encounter for screening for malignant neoplasm of colon (principal); D12.8 Benign neoplasm of rectum; I10 Essential (primary) hypertension; Z98.52 Vasectomy status; K21.9 Gastro-esophageal reflux disease without esophagitis
CPT/HCPCS: 45385; J2371; J2704